=== PATIENT | female | born 1975 | race Caucasian/White ===

== ENCOUNTER 2023-11-25 05:39 | Inpatient (IN) | payer OTHER, SELFPAY ==
--- OUTSIDE RECORDS SUMMARY | 2023-11-25 05:44 | XMS REPORT | Continuity of Care Document ---
Author Name Unknown Address [address] [facility] [address] [place] [address] [facility] thconnect Address [address] [facility] [place]. [address] [place] [address] Care Team Providers Care Radiological Technologist Name Role Phone Layla Armstrong MD Primary Care Physician [phone] CORY SUNSHINE Attending Clinician Unavailable GC_GCBZW_Carena_S Attending Clinician UnavailCASSIE Cifuentes Attending Clinician Unavailable Doctor Unassigned, [place] Attending Clinician U Cassie Morrison PA-C Attending Clinician [phone] Trevon Lopez DO Attending Clinician [phone], [facility] Attending Clinician Unavailable LAYLA ARMSTRONG Attending Clinician UnavailLayla Hernadez MD Attending Clinician [phone] Autumn Moses MD Attending Clinician [phone] Gt Frazier Attending Clinician Unavailab AUTUMN Hilliard Attending Clinician Unavailable KRISTIN STROUD Attending Clinician Unavailable Gramm Kristin BURRIS A Attending Clinician [phone] CORY SUNSHINE Admitting Clinician Unavailable CATERINA_GCBZW_Carena_S Admitting Clinician UnavailCASSIE Cifuentes Admitting Clinician Unavailable Gt Frazier Admitting Clinician Unavailab amita Payers Payer Name Policy Type Policy Number Effective Date Expirati on Date Source MEDICARE PART A \\T\\ B [id number] 2013 00:00:00 [place]ICA[place] [id number] 2019 00:00:00 Problems Condition Name Condition Details Condition Category Status Onset Date Resolution Date Last Treatment Date Treating Clinician Comments Source Morbid obesity with body mass index of 40.0-49.9 Morbid obesity with body mass index of 40.0-49.9 Disease Active 2019-07 00:00: 00 [facility] Obesity (BMI 30-39.9) Obesity (BMI 30-39.9) Disease Active -11 00:00: 00 [facility] Screening for colorectal cancer Screening for colorectal cancer Disease Active 07-25 00:00: 00 Overview: Formattin g of this note might be different from the original. Added automatic ally from request for surgery [id number] [facility] Vaginal yeast infection Vaginal yeast infection Disease Active 08-12 00:00: 00 [facility] Presence of of 52 mg levonorges trel-relea sing intrauteri ne device (IUD) Presence of of 52 mg levonorges trel-relea sing intrauteri ne device (IUD) Disease Active 08-11 00:00: 00 [facility] Intramural leiomyoma of uterus Intramural leiomyoma of uterus Disease Active 08-11 00:00: 00 [facility] Family history of breast cancer Family history of breast cancer Disease Active 08-10 00:00: 00 [facility] Family history of uterine cancer Family history of uterine cancer Disease Active 08-10 00:00: 00 [facility] Family history of colon cancer requiring screening colonoscop y Family history of colon cancer requiring screening colonoscop y Disease Active 08-10 00:00: 00 [facility] Sjogren's disease Sjogren's disease Disease Active 08-10 00:00: 00 [facility] Tobacco use disorder Tobacco use disorder Disease Active 07-30 00:00: 00 [facility] History of depression History of depression Disease Active 07-30 00:00: 00 [facility] S/P tubal ligation S/P tubal ligation Disease Active 07-30 00:00: 00 [facility] Leukorrhea , not specified as infective Leukorrhea , not specified as infective Disease Active 07-13 00:00: 00 [facility] STD (sexually transmitte d disease) STD (sexually transmitte d disease) Disease Active 07-13 00:00: 00 [facility] BV (bacterial vaginosis) BV (bacterial vaginosis) Disease Active 07-13 00:00: 00 [facility] Excessive or frequent menstruati on Excessive or frequent menstruati on Disease Active 07-13 00:00: 00 [facility] Other specified inflammati on of vagina and vulva Other specified inflammati on of vagina and vulva Disease Active 07-13 00:00: 00 [facility] Contact with and (suspected ) exposure to other viral communicab le diseases Contact with and (suspected ) exposure to other viral communicab le diseases Disease Active 07-13 00:00: 00 [facility] Irregular menstrual cycle Irregular menstrual cycle Disease Active 07-13 00:00: 00 [facility] Allergies, Adverse Reactions, Alerts Allergy Name Allergy Type Status Severity Reaction(s) Onset Date Inactive Date Treating Clinician Comments Source [place] - Intraven ous Propensi ty to adverse reaction to drug Active 12-31 00:00: 00 No Known Medicati on Allergie s Drug Active [facility] SEROquel Drug Active [facility] No Known Medicati on Allergie s Drug Active [facility] No Known Medicati on Allergie s Drug Active [facility] SEROquel Drug Active [facility] No Known Medicati on Allergie s Drug Active [facility] SEROquel Drug Active [facility] No Known Medicati on Allergie s Drug Active [facility] SEROquel Drug Active [facility] No Known Medicati on Allergie s Drug Active [facility] No Known Medicati on Allergie s Drug Active [facility] SEROquel Drug Active [facility] No Known Medicati on Allergie s Drug Active [facility] SEROquel Drug Active [facility] No Known Medicati on Allergie s Drug Active [facility] SEROquel Drug Active [facility] No Known Medicati on Allergie s Drug Active [facility] SEROquel Drug Active [facility] No Known Medicati on Allergie s Drug Active [facility] SEROquel Drug Active [facility] No Known Medicati on Allergie s Drug Active [facility] SEROquel Drug Active [facility] NO KNOWN ALLERGIE S Drug Class Active [facility] Social History Social Habit Start Date Stop Date Quantity Comments Source History of tobacco use Cigarette Smoker [facility] Sexual orientation U [facility] Exposure to SARS-CoV-2 (event) 2021-05-17 00:00:00 2021-06-16 10:23:00 Not sure [facility] Alcohol intake 2021-06-16 00:00:00 2021-06-16 00:00:00 Ex-drinker (finding) [facility] Cigarettes smoked current (pack per day) - Reported 2020-06-16 00:00:00 2020-06-16 00:00:00 [facility] Cigarette pack-years 2020-06-16 00:00:00 2020-06-16 00:00:00 [facility] Tobacco use and exposure 2020-06-16 00:00:00 2020-06-16 00:00:00 Smokeless tobacco non-user [facility] History of Social function 2020-02-07 00:00:00 2020-02-07 00:00:00 [facility] Sex Assigned At 1975 00:00:00 1975 00:00:00 [facility] Smoking Status Start Date Stop Date Source Smoker 2020-06-16 00:00:00 [facility] Medications Ordered Medication Name Filled Medication Name Start Date Stop Date Current Medication? Ordering Clinician Indication Dosage Frequency Signature (SIG) Comments Components Source &lt - 00:00: 00 No 600 &lt 2022-0 8-09 00:00: 00 No 15 &lt 2022-0 7-13 00:00: 00 No 20 &lt 2022-0 7-13 00:00: 00 No 20 &lt 2022-0 7-13 00:00: 00 No 600 &lt 2022-0 7-13 00:00: 00 No 20 &lt 2022-0 7-13 00:00: 00 No 20 &lt 2022-0 7-13 00:00: 00 No 600 &lt 2022-0 7-12 00:00: 00 No 600 &lt 2022-0 7-12 00:00: 00 No 20 &lt 2022-0 7-12 00:00: 00 No 500 &lt 2022-0 7-12 00:00: 00 No 15 &lt 2022-0 7-12 00:00: 00 No 600 &lt 2022-0 7-12 00:00: 00 No 20 &lt 2022-0 7-12 00:00: 00 No 500 &lt 2022-0 7-12 00:00: 00 No 15 gabapentin 600 mg tablet 2022-0 6-30 00:00: 00 No 1mg lisinopril 5 mg tablet 2022-0 6-30 00:00: 00 No 1mg &lt 2022-0 6-30 00:00: 00 No gabapentin 600 mg tablet 2022-0 6-30 00:00: 00 No 1mg lisinopril 5 mg tablet 2022-0 6-30 00:00: 00 No 1mg &lt 2022-0 6-30 00:00: 00 No gabapentin 600 mg tablet 2022-0 6-12 00:00: 00 No 1mg gabapentin 600 mg tablet 2022-0 6-12 00:00: 00 No 1mg gabapentin 600 mg tablet 2022-0 6-10 00:00: 00 No 1mg &lt 2022-0 6-10 00:00: 00 No Dose Unknown 2022-0 6-10 00:00: 00 No &lt 2022-0 6-10 00:00: 00 No Dose Unknown 2022-0 6-10 00:00: 00 No gabapentin 600 mg tablet 2022-0 6-10 00:00: 00 No 1mg &lt 2022-0 6-10 00:00: 00 No Dose Unknown 0 6- 00:00: 00 No &lt 0 6 00:00: 00 No Dose Unknown 0 6 00:00: 00 No Dose Unknown 0 6- 00:00: 00 No Dose Unknown 0 6 00:00: 00 No Dose Unknown 0 6 00:00: 00 No Dose Unknown 0 6 00:00: 00 No metroNIDAZO LE 500 mg tablet 2020-07 00:00: 00 Yes [id number] 500mg Take 1 tablet by mouth every 12 (twelve) hours. [facility] FLUoxetine 20 mg capsule 2020-07 00:00: 00 Yes [facility] mirtazapine 15 mg tablet 2020-07 00:00: 00 Yes [facility] gabapentin 600 mg tablet 2020-07 00:00: 00 No 1mg gabapentin 600 mg tablet 2020-07 00:00: 00 No 1mg gabapentin 600 mg tablet 2020-07 00:00: 00 No 1mg gabapentin 600 mg tablet 2020-07 00:00: 00 No 1mg gabapentin 600 mg tablet 04-01 00:00: 00 No 1mg gabapentin 600 mg tablet 04-01 00:00: 00 No 1mg gabapentin 600 mg tablet 01-27 00:00: 00 No 1mg gabapentin 600 mg tablet 01-27 00:00: 00 No 1mg gabapentin 300 mg capsule 12-18 00:00: 00 No 1mg gabapentin 300 mg capsule 12-18 00:00: 00 No 1mg ibuprofen 800 mg tablet 2019-07 10:58: 38 Yes 800mg Take 800 mg by mouth every 6 (six) hours as needed. [facility] amitriptyli ne 75 mg tablet 2019-07 10:57: 54 Yes 75mg Take 75 mg by mouth at bedtime. [facility] OLANZapine 15 mg tablet 2019-07 00:00: 00 Yes [facility] peg-electro lyte soln 236-22.74-6 .74 -5.86 gram solution 07-25 00:00: 00 Yes [id number] 4000mL Take 4,000 mL by mouth SEE-INSTRU CTIONS. Take as directed [facility] buPROPion XL 150 mg 24 hr tablet 2018-07 00:00: 00 Yes [facility] Wellbutrin XL 150 mg 24 hr tablet, extended release 2018-07 00:00: 00 No 1mg trazodone 50 mg tablet 2018-07 00:00: 00 No 1mg Wellbutrin XL 150 mg 24 hr tablet, extended release 2018-07 00:00: 00 No 1mg trazodone 50 mg tablet 2018-07 00:00: 00 No 1mg hydroxyzine HCl 50 mg tablet 2018-07 00:00: 00 No 1mg hydroxyzine HCl 50 mg tablet 2018-07 00:00: 00 No 1mg nitroglycer in 0.4 mg sublingual tablet 03-16 00:00: 00 No 1mg nitroglycer in 0.4 mg sublingual tablet 03-16 00:00: 00 No 1mg hydrOXYzine 50 mg capsule 2015-07 00:00: 00 Yes TAKE 1-2 CAPS DAILY NEEDED FOR ANXIETY [facility] Vital Signs Vital Name Observation Time Observation Value Comments S ource Systolic blood pressure 2021-06-16 16:42:00 132 mm[Hg] [facility] Diastolic blood pressure 2021-06-16 16:42:00 90 mm[Hg] [facility] Heart rate 2021-06-16 16:41:00 112 /min [facility] Body temperature 2021-06-16 16:41:00 36.83 Marlys [facility] Respiratory rate 2021-06-16 16:41:00 18 /min [facility] Body height 2021-06-16 16:41:[address] [facility] Body weight 2021-06-16 16:41:[address] [facility] BMI 2021-06-16 16:41:00 50.70 kg/m2 [facility] Height/Length Measured 2021-07-21 08:53:33 149.9 cm Weight Dosing 2021-07-21 08:53:33 68.00 kg Height/Length Measured 2021-07-21 08:50:45 149.9 cm Weight Dosing 2021-07-21 08:50:45 68.00 kg Height/Length Measured 2021-07-21 08:49:48 149.9 cm Weight Dosing 2021-07-21 08:49:48 68.00 kg Height/Length Measured 2021-07-21 08:48:44 149.9 cm Weight Dosing 2021-07-21 08:48:44 68.00 kg Height/Length Measured 2021-07-21 08:48:07 149.9 cm Weight Dosing 2021-07-21 08:48:07 68.00 kg Height/Length Measured 2021-07-21 08:47:09 149.9 cm Weight Dosing 2021-07-21 08:47:09 68.00 kg Height/Length Measured 2021-07-21 08:47:08 149.9 cm Weight Dosing 2021-07-21 08:47:08 68.00 kg Height/Length Measured 2021-07-21 08:46:32 149.9 cm Weight Dosing 2021-07-21 08:46:32 68.00 kg Height/Length Measured 2021-07-21 08:46:05 149.9 cm Weight Dosing 2021-07-21 08:46:05 68.00 kg Height/Length Measured 2021-07-21 08:46:04 149.9 cm Weight Dosing 2021-07-21 08:46:04 68.00 kg Height/Length Measured 2021-07-21 08:46:00 150 cm Height/Length Measured 2021-07-21 08:45:44 150 cm Height/Length Measured 2019-07-27 17:15:16 Height/Length Measured 2019-07-27 13:25:33 BP Systolic 2022-02-12 15:48:00 150 mm[Hg] BP Diastolic 2022-02-12 15:48:00 90 mm[Hg] Weight Measured 2022-02-12 15:48:00 252.80 pounds Height Measured 2022-02-12 15:48:00 59.70 inches Body Temperature 2022-02-12 15:48:00 98.10 degrees Heart Rate 2022-02-12 15:48:00 106.00 /min Respiratory Rate 2022-02-12 15:48:00 BP Systolic 2022-01-12 14:28:00 BP Diastolic 2022-01-12 14:28:00 Weight Measured 2022-01-12 14:28:00 251.80 pounds Height Measured 2022-01-12 14:28:00 59.70 inches Body Temperature 2022-01-12 14:28:00 Heart Rate 2022-01-12 14:28:00 Respiratory Rate 2022-01-12 14:28:00 BP Systolic 2021-12-31 14:56:00 139 mm[Hg] BP Diastolic 2021-12-31 14:56:00 95 mm[Hg] Weight Measured 2021-12-31 14:56:00 251.80 pounds Height Measured 2021-12-31 14:56:00 59.70 inches Body Temperature 2021-12-31 14:56:00 98.40 degrees Heart Rate 2021-12-31 14:56:00 106.00 /min Respiratory Rate 2021-12-31 14:56:00 17.00 /min BP Systolic 2021-12-11 15:08:00 129 mm[Hg] BP Diastolic 2021-12-11 15:08:00 83 mm[Hg] Weight Measured 2021-12-11 15:08:00 252.00 pounds Height Measured 2021-12-11 15:08:00 59.70 inches Body Temperature 2021-12-11 15:08:00 98.40 degrees Heart Rate 2021-12-11 15:08:00 109.00 /min Respiratory Rate 2021-12-11 15:08:00 18.00 /min BP Systolic 2021-01-21 14:02:00 BP Diastolic 2021-01-21 14:02:00 Weight Measured 2021-01-21 14:02:00 230.00 pounds Height Measured 2021-01-21 14:02:00 59.70 inches Body Temperature 2021-01-21 14:02:00 Heart Rate 2021-01-21 14:02:00 Respiratory Rate 2021-01-21 14:02:00 BP Systolic 2020-01-29 10:07:00 BP Diastolic 2020-01-29 10:07:00 Weight Measured 2020-01-29 10:07:00 Height Measured 2020-01-29 10:07:00 59.70 inches Body Temperature 2020-01-29 10:07:00 Heart Rate 2020-01-29 10:07:00 Respiratory Rate 2020-01-29 10:07:00 BP Systolic 2019-04-24 13:32:00 123 mm[Hg] BP Diastolic 2019-04-24 13:32:00 79 mm[Hg] Weight Measured 2019-04-24 13:32:00 143.60 pounds Height Measured 2019-04-24 13:32:00 59.70 inches Body Temperature 2019-04-24 13:32:00 98.10 degrees Heart Rate 2019-04-24 13:32:00 73.00 /min Respiratory Rate 2019-04-24 13:32:00 16.00 /min Plan of Care Planned Activity Planned Date Details Comments Source Goal Plan of Care Note [code = 55415-4] Goal Plan of Care Note [code = 56437-7] Goal Plan of Care Note [code = 26155-5] Goal Plan of Care Note [code = 15184-7] Goal Plan of Care Note [code = 50073-0] Goal Plan of Care Note [code = 16356-0] Goal Plan of Care Note [code = 56907-2] Goal Plan of Care Note [code = 41839-9] Goal Plan of Care Note [code = 85152-4] Goal Plan of Care Note [code = 98401-7] Goal Plan of Care Note [code = 74993-7] Goal Plan of Care Note [code = 17170-2] Goal Plan of Care Note [code = 03497-6] Goal Plan of Care Note [code = 48971-9] Goal Plan of Care Note [code = 73857-6] Goal Plan of Care Note [code = 51648-7] Goal Plan of Care Note [code = 57456-2] Goal Plan of Care Note [code = 32317-8] Goal Plan of Care Note [code = 35017-9] Goal Plan of Care Note [code = 52252-0] Goal Plan of Care Note [code = 93104-6] Goal Plan of Care Note [code = 38179-9] Goal Plan of Care Note [code = 05991-4] Goal Plan of Care Note [code = 70235-7] Goal Plan of Care Note [code = 52142-0] Goal Plan of Care Note [code = 78059-9] Goal Plan of Care Note [code = 09134-7] Goal Plan of Care Note [code = 28582-7] Goal Plan of Care Note [code = 54135-3] Goal Plan of Care Note [code = 97715-6] Goal Plan of Care Note [code = 87999-3] Goal Plan of Care Note [code = 20748-0] Goal Plan of Care Note [code = 24198-0] Goal Plan of Care Note [code = 54729-7] Goal Plan of Care Note [code = 48743-9] Goal Plan of Care Note [code = 08702-7] Goal Plan of Care Note [code = 33620-5] Goal Plan of Care Note [code = 43892-7] Goal Plan of Care Note [code = 08951-7] Goal Plan of Care Note [code = 75683-8] Goal Plan of Care Note [code = 25971-8] Goal Plan of Care Note [code = 87336-7] Goal Plan of Care Note [code = 81169-0] Goal Plan of Care Note [code = 05377-7] Encounters Start Date/Time End Date/Time Encounter Type Admission Type Attending [facility] Facility Care Department Encounter ID Source 2021-04-30 13:01:21 Outpatient CORY RODRIGUEZ [facility] [id number] [facility] 2023-11-18 15:12:05 2023-11-18 15:12:05 Outpatient SFA SFA [id number] Hipolito Jannet Addy 2023-10-27 15:16:19 2023-10-27 15:16:19 Outpatient SFA SFA [id number] Hipolito Jannet Addy 2023-09-27 14:31:59 2023-09-27 14:31:59 Outpatient SFA SFA [id number] Hipolito Daly 2023-08-30 14:04:03 2023-08-30 14:04:03 Outpatient SFA SFA [id number] Hipolito Daly 2023-08-09 15:22:39 2023-08-09 15:22:39 Outpatient SFA SFA 020 Hipolito Daly 2023-08-05 14:01:58 2023-08-05 14:01:58 Outpatient SFA SFA [id number] Hipolito Daly 2023-07-22 09:20:47 2023-07-22 09:20:47 Outpatient SFA SFA [id number] Hipolito Daly 2023-07-21 15:44:24 2023-07-21 15:44:24 Outpatient SFA SFA [id number] Hipolito Daly 2023-05-13 14:18:07 2023-05-13 14:18:07 Outpatient SFA SFA [id number] Hipolito Daly 2023-04-30 00:00:00 2023-04-30 00:00:00 Outpatient GC_GCBZW_Ka diyala_S PRIV PRIV [id number] [facility] 2023-04-29 00:00:00 2023-04-29 00:00:00 Outpatient GC_GCBZW_Ka diyala_S PRIV PRIV [id number] [facility] 2023-04-22 09:27:33 2023-04-22 09:27:33 Outpatient SFA SFA [id number] Hipolito Daly 2023-01-07 14:24:57 2023-01-07 14:24:57 Outpatient SFA SFA [id number] Hipolito Power Addy 2022-12-10 14:22:50 2022-12-10 14:22:50 Outpatient SFA SFA [id number] Hipolito Daly 2022-09-09 17:27:41 2022-09-09 17:27:41 Outpatient SFA SFA [id number] Hipolito Daly 2022-06-11 14:39:02 2022-06-11 14:39:02 Outpatient SFA SFA [id number] Hipolito Daly 2022-04-19 14:24:11 2022-04-19 14:24:11 Outpatient SFA SFA [id number] Hipolito Daly 2022-02-12 00:00:00 2022-02-12 00:00:00 Outpatient Visit [id number] 2022-01-13 00:00:00 2022-01-13 00:00:00 Outpatient Visit [id number] 2022-01-12 00:00:00 2022-01-12 00:00:00 Outpatient Visit [id number] 2021-12-31 00:00:00 2021-12-31 00:00:00 Outpatient Visit [id number] 2021-06-23 00:00:00 2021-06-23 00:00:00 Patient Secure Msg Doctor Unassigned, [place] [address]840.114 350.1.13.10 4.2.7.2.686 [id number] [facility] 2021-06-18 00:00:00 2021-06-18 00:00:00 Patient Secure Msg Doctor Unassigned, [place] [address].840.114 350.1.13.10 4.2.7.2.686 [id number] [facility] 2021-06-17 00:00:00 2021-06-17 00:00:00 Case Management Cassie Mcgraw [address]114 350.1.13.10 4.2.7.2.686 [id number] [facility] 2021-06-16 10:30:00 2021-06-16 10:59:21 Outpatient R CASSIE MCGRAW [facility] [id number] [facility] 2021-06-16 10:24:50 2021-06-16 10:59:21 Office Visit Mariluz [facility] 1.840.114 350.1.13.10 4.2.7.2.686 [id number] [facility] 2021-06-16 10:30:00 2021-06-16 10:30:00 Outpatient R MARILUZ [facility] [id number] [facility] 2021-06-16 00:00:00 2021-06-16 00:00:00 Orders Only Doctor Unassigned, [place] [facility] 1.840.114 350.1.13.10 4.2.7.2.686 [id number] [facility] 2020-09-18 00:00:00 2020-09-18 00:00:00 Patient Outreach Trevon Lopez [facility] 1.840.114 350.1.13.10 4.2.7.2.686 [id number] [facility] 2020-08-05 14:15:00 2020-08-05 14:15:00 Outpatient R CORY SUNSHINE [facility] [id number] [facility] 2020-06-16 11:30:37 2020-06-16 11:45:37 Manager Environmental Health And Safety Visit 2, Adc Lab Mariluz [facility] 1.840.114 350.1.13.10 4.2.7.2.686 [id number] [facility] 2020-06-16 10:27:51 2020-06-16 10:57:51 Office Visit Cassie Mcgraw [facility] [place] [facility] 1.2.840.114 350.1.13.10 4.2.7.2.686 [id number] [facility] 2020-06-16 10:30:00 2020-06-16 10:30:00 Outpatient R CASSIE MCGRAW [facility] [id number] [facility] 2019-11-16 00:00:00 2019-11-16 00:00:00 Telephone Cassie Mcgraw [facility] Alivia [facility] 1.2.840.114 350.1.13.10 4.2.7.2.686 [id number] [facility] 2019-11-15 00:00:00 2019-11-15 00:00:00 Case Management Cassie Mcgraw [facility] Building 1.2.840.114 350.1.13.10 4.2.7.2.686 [id number] [facility] 2019-11-12 10:18:52 2019-11-12 11:20:52 Office Visit Cassie Mcgraw [facility] 1.2.840.114 350.1.13.10 4.2.7.2.686 [id number] [facility] 2019-11-12 10:30:00 2019-11-12 10:30:00 Out[facility] [id number] [facility] 2019-11-07 14:15:00 2019-11-07 14:15:00 [facility] [id number] [facility] 2019-11-06 14:00:00 2019-11-06 14:00:00 Outpatient LAYLA HUNTER [facility] [id number] [facility] 2019-11-06 07:37:59 2019-11-06 08:07:59 Telemedici ne Visit Layla Armstrong [facility] 1.2.840.114 350.1.13.10 4.2.7.2.686 [id number] [facility] 2019-11-05 08:48:17 2019-11-05 09:03:17 Manager Environmental Health And Safety Visit 2, Adc Lab Cassie Mcgraw [facility] 1.2.840.114 350.1.13.10 4.2.7.2.686 [id number] [facility] 2019-11-05 08:45:00 2019-11-05 08:45:00 Outpatient R MARILUZCASSIE [facility] [id number] [facility] 2019-11-05 00:00:00 2019-11-05 00:00:00 Orders Only Doctor Unassigned, [place] [facility] 1.2.840.114 350.1.13.10 4.2.7.2.686 [id number] [facility] 2019-11-02 00:00:00 2019-11-02 00:00:00 Telephone Cassie Mcgraw [facility] 1.2840.114 350.1.13.10 4.2.7.2.686 [id number] [facility] 2019-08-07 10:49:20 2019-08-07 23:59:00 Outpatient R CASSIE MCGRAW [facility] [id number] [facility] 2019-08-07 10:49:00 2019-08-07 23:59:00 Hospital Encounter Cassie Mcgraw [facility] 1.2.840.114 350.1.13.10 4.2.7.2.686 [id number] [facility] 2019-07-27 13:19:56 2019-07-27 23:59:00 Hospital Encounter Autumn Moses [facility] 1..114 350.1.13.10 4.2.7.2.686 [id number] [facility] 2019-07-27 13:14:00 2019-07-27 13:14:[address] [facility] [id number] [facility] 2019-07-27 13:14:00 2019-07-27 13:14:00 Emergency [address] [facility] [id number] [facility] 2019-07-27 00:00:00 2019-07-27 00:00:00 Outpatient R AUTUMN MOSES [facility] SHERITA [id number] [facility] 2019-07-27 00:00:00 2019-07-27 00:00:00 Orders Only Doctor Unassigned, [place] [facility] [id number] [facility] 2019-07-26 14:00:00 2019-07-26 14:00:00 Outpatient R CORY SUNSHINE [facility] [id number] [facility] 2019-07-25 11:00:00 2019-07-25 13:06:10 Outpatient R KRISTIN STROUD [facility] [id number] [facility] 2019-07-25 11:06:48 2019-07-25 11:21:48 Office Visit Kristin Stroud [facility] [id number] [id number] [id number] [facility] 2019-07-25 00:00:00 2019-07-25 00:00:00 Telephone Kristin Stroud [facility] 1.840.114 [id number] 4.2.7.2.686 [id number] [facility] 2019-07-25 00:00:00 2019-07-25 00:00:00 Prep For Surgery Kristin Stroud [facility] Gentry Aguila [facility] [id number] 350.1.13.10 4.2.7.2.686 [id number] [facility] 2019-06-22 11:05:54 2019-06-22 11:05:00 Outpatient Jailene MCGRAW [facility] [id number] [facility] 2019-06-14 11:30:00 2019-06-14 11:30:00 [facility] [id number] [facility] 2019-03-08 12:54:36 2019-03-08 23:59:00 Hospital Encounter Autumn Moses [facility] 1..840.114 350.1.13.10 4.2.7.2.686 [id number] [facility] Results Test Description Test Time Test Comments Results Result Co mments Source LIPID [id number] 05:13:29* Test Item Value Reference Range Interpretation Comme nts CHOLESTEROL (test code = 2210) 146 MG/DL <200 TRIGLYCERIDES (test code = 2232) 146 MG/DL <150 HDL CHOLESTEROL (test code = 2220) 47 MG/DL >39 CALC LDL CHOL (test code = 2237) 76 MG/DL <100 UNABLE TO CALCUL ATE NOTE: CALCULATED LDL IS BASED ON IDRIS-LAO METHOD WHICHINCLUDES ADJUSTABLE TRIGLYCERIDE:VLDL CHOLESTEROL RATIO.THIS FACTOR VARIES BY MEASURED TRIGLYCERIDE AND NON-HDLCHOLESTEROL CONCENTRATIONS WITH INCREASED CALCULATED LDL SEENIN HIGHER TRIGLYCERIDE OR LOWER NON-HDL SPECIMENS. FOR MOREINFORMATION, SEE CLIENT ANNOUNCEMENT AT [email or web address] RATIO LDL/HDL (test code = 2238) 1.62 RATIO <3.22 UNABLE TO ARASH CULATE HEMOGLOBIN [id number] 02:41:49* Test Item Value Reference Range Interpretation Comme nts HEMOGLOBIN A1c (test code = 15165) 6.1 % 4.2-5.6 H [employer] GUIDELINES FOR HGB A1C: PREDIABETES/INCREASED RISK . . . . . . . 5.7-6.4% DIAGNOSIS OF DIABETES . . . . . . . . . >=6.5% WITH CONFIRMATION OR APPROPRIATE SYMPTOMS NOTE: ASSAY MAY BE AFFECTED BY HEMOGLOBINOPATHIES (SICKLE CELL ANEMIA, S-C DISEASE, OTHERS) OR ARTIFICIALLY LOWERED BY DECREASED RED CELL SURVIVAL (HEMOLYTIC ANEMIAS, BLOOD LOSS, ETC.). CONSIDER ALTERNATE TESTING OR LABORATORY CONSULTATION. UNLESS OTHERWISE INDICATED, ALL TESTING PERFORMED AT [facility] [address] [place] [address] SPLITTING MACHINE OPERATOR: SILVESTRE NOLASCO M.D. CLIA NUMBER [id number] [place]. [id number] VITAMIN D, 25 [id number] 07:19:40* Test Item Value Reference Range Interpretation Comme nts VITAMIN D, 25 OH (test code = 4958) 7 NG/ML SEE BELOW L EFFECTIVE 2022, PLEASE NOTE NEW METHODOLOGY IS ELECTROCHEMILUMINESCENCE BINDING ASSAY. NOTE: 25-HYDROXYVITAMIN D ASSAY INCLUDES 25-HYDROXYVITAMIN D2 AND D3. INTERPRETIVE RANGES PEDIATRIC (<17 YEARS) . . . . . . . . . . . NG/ML 20-100ADULT: INSUFFICIENT . . . . . . . . . . . . . . NG/ML <20 SUBOPTIMAL . . . . . . . . . . . . . . . NG/ML 20-29 OPTIMAL . . . . . . . . . . . . . . . . . NG/ML 30-100 UNLESS OTHERWISE INDICATED, ALL TESTING PERFORMED AT [facility] [address] [place] [address] SPLITTING MACHINE OPERATOR: SILVESTRE NOLASCO M.D. CLIA NUMBER [id number] [place]. [id number] LIPID [id number] 06:12:20* Test Item Value Reference Range Interpretation Comme nts CHOLESTEROL (test code = 2210) 222 MG/DL <200 H TRIGLYCERIDES (test code = 2232) 201 MG/DL <150 H HDL CHOLESTEROL (test code = 2220) 50 MG/DL >39 CALC LDL CHOL (test code = 2237) 137 MG/DL <100 H NOTE: CALCULATED LDL IS BASED ON IDRIS-LAO METHOD WHICHINCLUDES ADJUSTABLE TRIGLYCERIDE:VLDL CHOLESTEROL RATIO.THIS FACTOR VARIES BY MEASURED TRIGLYCERIDE AND NON-HDLCHOLESTEROL CONCENTRATIONS WITH INCREASED CALCULATED LDL SEENIN HIGHER TRIGLYCERIDE OR LOWER NON-HDL SPECIMENS. FOR MOREINFORMATION, SEE CLIENT ANNOUNCEMENT AT [email or web address] RATIO LDL/HDL (test code = 2237) 2.74 RATIO <3.22 COMPREHENSIVE METABOLIC [id number] 06:12:20* Test Item Value Reference Range Interpretation Comme nts GLUCOSE (test code = 2216) 118 MG/DL 70-99 H BUN (test code = 2207) 8 MG/DL 6-20 CREATININE (test code = 2213) 0.76 MG/DL 0.60-1.30 eGFR (2020 CKD-EPI) (test code = 66635) 96 ML/MIN/1.73 >60 CALC BUN/CREAT (test code = 2234) 11 RATIO 6-28 SODIUM (test code = 2230) 138 MEQ/L 133-146 POTASSIUM (test code = 2227) 4.5 MEQ/L 3.5-5.4 CHLORIDE (test code = 2214) 102 MEQ/L 95-107 CARBON DIOXIDE (test code = 6) 23 MEQ/L 19-31 CALCIUM (test code = 220) 9.9 MG/DL 8.5-10.5 PROTEIN, TOTAL (test code = 2228) 7.1 G/DL 6.1-8.3 ALBUMIN (test code = 2200) 5.0 G/DL 3.5-5.2 CALC GLOBULIN (test code = 2240) 2.1 G/DL 1.9-3.7 CALC A/G RATIO (test code = 2233) 2.4 RATIO 1.0-2.6 BILIRUBIN, TOTAL (test code = 2206) 0.3 MG/DL <=1.2 ALKALINE PHOSPHATASE (test code = 220) 110 U/L 40-125 AST (test code = 2218) 19 U/L 9-40 ALT (test code = 2219) 24 U/L 5-40 UNLESS OTHERWISE INDICATED, ALL TESTING PERFORMED AT [facility] [address] [place] [address] SPLITTING MACHINE OPERATOR: SILVESTRE NOLASCO M.D. CLIA NUMBER [id number] [place]. [id number] CBC W/AUTO DIFF WITH [id number] 04:51:12* Test Item Value Reference Range Interpretation Comme nts WBC (test code = 1001) 8.2 K/UL 3.5-11.0 RBC (test code = 1002) 4.47 M/UL 3.80-5.40 HEMOGLOBIN (test code = 1003) 14.6 G/DL 11.5-15.5 HEMATOCRIT (test code = 1004) 43.4 % 34.0-45.0 MCV (test code = 1005) 97.1 fL 80.0-99.0 MCH (test code = 1006) 32.7 PG 25.0-33.0 MCHC (test code = 1007) 33.6 G/DL 31.0-36.0 RDW (test code = 1038) 12.9 % 11.5-15.0 NEUTROPHILS (test code = 1008) 70.2 % LYMPHOCYTES (test code = 1010) 22.1 % MONOCYTES (test code = 1011) 5.6 % EOSINOPHILS (test code = 1012) 1.2 % BASOPHILS (test code = 1013) 0.7 % IMMATURE GRANULOCYTES (test code = 1036) 0.2 % NUCLEATED RBCS (test code = 1065) 0.0 /100 WBC'S See_Comment [Automated messa ge] The system which generated this result transmitted reference range: 0.0. The reference range was not used to interpret this result as normal/abnormal. PLATELET COUNT (test code = 1015) 424 K/UL 130-400 H ABSOLUTE NEUTROPHILS (test code = 1066) 5.75 K/UL 1.50-7.50 ABSOLUTE LYMPHOCYTES (test code = 1067) 1.81 K/UL 1.00-4.00 ABSOLUTE MONOCYTES (test code = 1068) 0.46 K/UL 0.20-1.00 ABSOLUTE EOSINOPHILS (test code = 1040) 0.10 K/UL 0.00-0.50 ABSOLUTE BASOPHILS (test code = 1069) 0.06 K/UL 0.00-0.20 ABS IMMATURE GRANULOCYTES (test code = 1020) 0.02 K/UL 0.00-0.10 ABS NUCLEATED RBCS (test code = 48646) 0.00 K/UL 0.00-0.11 HEMOGLOBIN [id number] 02:42:29* Test Item Value Reference Range Interpretation Comme nts HEMOGLOBIN A1c (test code = 88174) 6.2 % 4.2-5.6 H [employer] GUIDELINES FOR HGB A1C: PREDIABETES/INCREASED RISK . . . . . . . 5.7-6.4% DIAGNOSIS OF DIABETES . . . . . . . . . >=6.5% WITH CONFIRMATION OR APPROPRIATE SYMPTOMS NOTE: ASSAY MAY BE AFFECTED BY HEMOGLOBINOPATHIES (SICKLE CELL ANEMIA, S-C DISEASE, OTHERS) OR ARTIFICIALLY LOWERED BY DECREASED RED CELL SURVIVAL (HEMOLYTIC ANEMIAS, BLOOD LOSS, ETC.). CONSIDER ALTERNATE TESTING OR LABORATORY CONSULTATION. HEMOGLOBIN [id number] 04:19:24* Test Item Value Reference Range Interpretation Comme nts HEMOGLOBIN A1c (test code = 26410) 7.0 % 4.2-5.6 H [employer] GUIDELINES FOR HGB A1C: PREDIABETES/INCREASED RISK . . . . . . . 5.7-6.4% DIAGNOSIS OF DIABETES . . . . . . . . . >=6.5% WITH CONFIRMATION OR APPROPRIATE SYMPTOMS NOTE: ASSAY MAY BE AFFECTED BY HEMOGLOBINOPATHIES (SICKLE CELL ANEMIA, S-C DISEASE, OTHERS) OR ARTIFICIALLY LOWERED BY DECREASED RED CELL SURVIVAL (HEMOLYTIC ANEMIAS, BLOOD LOSS, ETC.). CONSIDER ALTERNATE TESTING OR LABORATORY CONSULTATION. UNLESS OTHERWISE INDICATED, ALL TESTING PERFORMED AT [facility] [address] [place] [address] SPLITTING MACHINE OPERATOR: SILVESTRE NOLASCO M.D. CLIA NUMBER [id number] [facility] [place]. [id number] CBC W/AUTO DIFF WITH [id number] 07:46:27* Test Item Value Reference Range Interpretation Comme nts WBC (test code = 1001) 6.8 K/UL 3.5-11.0 RBC (test code = 1002) 4.49 M/UL 3.80-5.40 HEMOGLOBIN (test code = 1003) 14.8 G/DL 11.5-15.5 HEMATOCRIT (test code = 1004) 44.0 % 34.0-45.0 MCV (test code = 1005) 98.0 fL 80.0-99.0 MCH (test code = 1006) 33.0 PG 25.0-33.0 MCHC (test code = 1007) 33.6 G/DL 31.0-36.0 RDW (test code = 1038) 12.4 % 11.5-15.0 NEUTROPHILS (test code = 1008) 66.5 % LYMPHOCYTES (test code = 1010) 24.4 % MONOCYTES (test code = 1011) 6.6 % EOSINOPHILS (test code = 1012) 1.5 % BASOPHILS (test code = 1013) 0.6 % IMMATURE GRANULOCYTES (test code = 1036) 0.4 % NUCLEATED RBCS (test code = 1065) 0.0 /100 WBC'S See_Comment [Automated [facility]] The system which generated this result transmitted reference range: 0.0. The reference range was not used to interpret this result as normal/abnormal. PLATELET COUNT (test code = 1015) 322 K/UL 130-400 ABSOLUTE NEUTROPHILS (test code = 1066) 4.55 K/UL 1.50-7.50 ABSOLUTE LYMPHOCYTES (test code = 1067) 1.67 K/UL 1.00-4.00 ABSOLUTE MONOCYTES (test code = 1068) 0.45 K/UL 0.20-1.00 ABSOLUTE EOSINOPHILS (test code = 1040) 0.10 K/UL 0.00-0.50 ABSOLUTE BASOPHILS (test code = 1069) 0.04 K/UL 0.00-0.20 ABS IMMATURE GRANULOCYTES (test code = 1020) 0.03 K/UL 0.00-0.10 ABS NUCLEATED RBCS (test code = 33834) 0.00 K/UL 0.00-0.11 LIPID [id number] 07:09:49* Test Item Value Reference Range Interpretation Comme nts CHOLESTEROL (test code = 2210) 241 MG/DL <200 H TRIGLYCERIDES (test code = 2232) 193 MG/DL <150 H HDL CHOLESTEROL (test code = 2220) 53 MG/DL >39 CALC LDL CHOL (test code = 2237) 155 MG/DL <100 H NOTE: CALCULATED LDL IS BASED ON IDRIS-LAO METHOD WHICHINCLUDES ADJUSTABLE TRIGLYCERIDE:VLDL CHOLESTEROL RATIO.THIS FACTOR VARIES BY MEASURED TRIGLYCERIDE AND NON-HDLCHOLESTEROL CONCENTRATIONS WITH INCREASED CALCULATED LDL SEENIN HIGHER TRIGLYCERIDE OR LOWER NON-HDL SPECIMENS. FOR MOREINFORMATION, SEE CLIENT ANNOUNCEMENT AT [email or web address] [email or web address] LDL/HDL (test code = 2238) 2.92 RATIO <3.22 COMPREHENSIVE METABOLIC [id number] 07:09:49* Test Item Value Reference Range Interpretation Comme nts GLUCOSE (test code = 2216) 108 MG/DL 70-99 H BUN (test code = 220) 10 MG/DL 6-20 CREATININE (test code = 2214) 0.73 MG/DL 0.60-1.30 eGFR (2020 CKD-EPI) (test code = 72359) 101 ML/MIN/1.73 >60 CALC BUN/CREAT (test code = 2235) 14 RATIO 6-28 SODIUM (test code = 223) 139 MEQ/L 133-146 POTASSIUM (test code = 2228) 4.6 MEQ/L 3.5-5.4 CHLORIDE (test code = 221) 99 MEQ/L 95-107 CARBON DIOXIDE (test code = 220) 23 MEQ/L 19-31 CALCIUM (test code = 220) 9.8 MG/DL 8.5-10.5 PROTEIN, TOTAL (test code = 222) 8.0 G/DL 6.1-8.3 ALBUMIN (test code = 2200) 5.1 G/DL 3.5-5.2 CALC GLOBULIN (test code = 2240) 2.9 G/DL 1.9-3.7 CALC A/G RATIO (test code = 223) 1.8 RATIO 1.0-2.6 BILIRUBIN, TOTAL (test code = 2206) 0.3 MG/DL See_Comment [Automated me ssage] The system which generated this result transmitted reference range: <=1.2. The reference range was not used to interpret this result as normal/abnormal. ALKALINE PHOSPHATASE (test code = 2203) 133 U/L 40-125 H AST (test code = 2218) 27 U/L 9-40 ALT (test code = 2219) 45 U/L 5-40 H UNLESS OTHERWISE INDICATED, ALL TESTING PERFORMED AT [facility] [address] [place] [address] SPLITTING MACHINE OPERATOR: SILVESTRE NOLASCO M.D. CLIA NUMBER [id number] [facility] [place]. [id number] COMPREHENSIVE METABOLIC [id number] 03:38:27* Test Item Value Reference Range Interpretation Comme nts GLUCOSE (test code = 7) 99 MG/DL 70-99 BUN (test code = 2208) 11 MG/DL 6-20 CREATININE (test code = 2214) 0.68 MG/DL 0.60-1.30 eGFR (2020 CKD-EPI) (test code = 67892) 107 ML/MIN/1.73 >60 CALC BUN/CREAT (test code = 223) 16 RATIO 6-28 SODIUM (test code = 223) 141 MEQ/L 133-146 POTASSIUM (test code = 2228) 4.2 MEQ/L 3.5-5.4 CHLORIDE (test code = 221) 103 MEQ/L 95-107 CARBON DIOXIDE (test code = 2206) 21 MEQ/L 19-31 CALCIUM (test code = 2209) 9.7 MG/DL 8.5-10.5 PROTEIN, TOTAL (test code = 2228) 7.5 G/DL 6.1-8.3 ALBUMIN (test code = 2200) 4.7 G/DL 3.5-5.2 CALC GLOBULIN (test code = 2240) 2.8 G/DL 1.9-3.7 CALC A/G RATIO (test code = 2233) 1.7 RATIO 1.0-2.6 BILIRUBIN, TOTAL (test code = 2206) <0.2 MG/DL See_Comment [Automated me ssage] The system which generated this result transmitted reference range: <=1.2. The reference range was not used to interpret this result as normal/abnormal. ALKALINE PHOSPHATASE (test code = 2203) 127 U/L 40-123 H AST (test code = 2218) 25 U/L 9-40 ALT (test code = 2219) 33 U/L 5-40 UNLESS OTHERWISE INDICATED, ALL TESTING [facility]FORMED [facility] [address] [place] [address] SPLITTING MACHINE OPERATOR: CJ AYALA M.D. CLIA NUMBER [id number] [facility] [place]. [id number] COMPREHENSIVE METABOLIC [id number] 00:00:00* Test Item Value Reference Range Interpretation Comme nts GLUCOSE (test code = 7) 99 MG/DL BUN (test code = 2208) 11 MG/DL CREATININE (test code = 2214) 0.68 MG/DL eGFR (2020 CKD-EPI) (test code = 47981) 107 ML/MIN/1.73 CALC BUN/CREAT (test code = 2235) 16 RATIO SODIUM (test code = 2231) 141 MEQ/L POTASSIUM (test code = 2228) 4.2 MEQ/L CHLORIDE (test code = 2215) 103 MEQ/L CARBON DIOXIDE (test code = 2206) 21 MEQ/L CALCIUM (test code = 2209) 9.7 MG/DL PROTEIN, TOTAL (test code = 2229) 7.5 G/DL ALBUMIN (test code = 2201) 4.7 G/DL CALC GLOBULIN (test code = 2240) 2.8 G/DL CALC A/G RATIO (test code = 2234) 1.7 RATIO BILIRUBIN, TOTAL (test code = 2207) <0.2 MG/DL ALKALINE PHOSPHATASE (test code = 2204) 127 U/L AST (test code = 2218) 25 U/L ALT (test code = 2219) 33 U/L COMPREHENSIVE METABOLIC [id number] 00:00:00* Test Item Value Reference Range Interpretation Comme nts GLUCOSE (test code = 2217) 99 MG/DL BUN (test code = 2208) 11 MG/DL CREATININE (test code = 2214) 0.68 MG/DL eGFR (2020 CKD-EPI) (test code = 15368) 107 ML/MIN/1.73 CALC BUN/CREAT (test code = 2235) 16 RATIO SODIUM (test code = 2231) 141 MEQ/L POTASSIUM (test code = 2228) 4.2 MEQ/L CHLORIDE (test code = 2215) 103 MEQ/L CARBON DIOXIDE (test code = 2206) 21 MEQ/L CALCIUM (test code = 2209) 9.7 MG/DL PROTEIN, TOTAL (test code = 2229) 7.5 G/DL ALBUMIN (test code = 2201) 4.7 G/DL CALC GLOBULIN (test code = 2240) 2.8 G/DL CALC A/G RATIO (test code = 2234) 1.7 RATIO BILIRUBIN, TOTAL (test code = 2207) <0.2 MG/DL ALKALINE PHOSPHATASE (test code = 2204) 127 U/L AST (test code = 2218) 25 U/L ALT (test code = 2219) 33 U/L COMPREHENSIVE METABOLIC [id number] 00:00:00* Test Item Value Reference Range Interpretation Comme nts GLUCOSE (test code = 2217) 99 MG/DL BUN (test code = 2208) 11 MG/DL CREATININE (test code = 2214) 0.68 MG/DL eGFR (2020 CKD-EPI) (test code = 99004) 107 ML/MIN/1.73 CALC BUN/CREAT (test code = 2235) 16 RATIO SODIUM (test code = 2231) 141 MEQ/L POTASSIUM (test code = 2228) 4.2 MEQ/L CHLORIDE (test code = 2215) 103 MEQ/L CARBON DIOXIDE (test code = 2206) 21 MEQ/L CALCIUM (test code = 2209) 9.7 MG/DL PROTEIN, TOTAL (test code = 2229) 7.5 G/DL ALBUMIN (test code = 2201) 4.7 G/DL CALC GLOBULIN (test code = 2240) 2.8 G/DL CALC A/G RATIO (test code = 2234) 1.7 RATIO BILIRUBIN, TOTAL (test code = 2207) <0.2 MG/DL ALKALINE PHOSPHATASE (test code = 2204) 127 U/L AST (test code = 2218) 25 U/L ALT (test code = 2219) 33 U/L COMPREHENSIVE METABOLIC [id number] 00:00:00* Test Item Value Reference Range Interpretation Comme nts GLUCOSE (test code = 2217) 99 MG/DL BUN (test code = 2208) 11 MG/DL CREATININE (test code = 2214) 0.68 MG/DL eGFR (2020 CKD-EPI) (test code = 16493) 107 ML/MIN/1.73 CALC BUN/CREAT (test code = 2235) 16 RATIO SODIUM (test code = 2231) 141 MEQ/L POTASSIUM (test code = 2228) 4.2 MEQ/L CHLORIDE (test code = 2215) 103 MEQ/L CARBON DIOXIDE (test code = 2206) 21 MEQ/L CALCIUM (test code = 2209) 9.7 MG/DL PROTEIN, TOTAL (test code = 2229) 7.5 G/DL ALBUMIN (test code = 2201) 4.7 G/DL CALC GLOBULIN (test code = 2240) 2.8 G/DL CALC A/G RATIO (test code = 2234) 1.7 RATIO BILIRUBIN, TOTAL (test code = 2207) <0.2 MG/DL ALKALINE PHOSPHATASE (test code = 2204) 127 U/L AST (test code = 2218) 25 U/L ALT (test code = 2219) 33 U/L COMPREHENSIVE METABOLIC [id number] 00:00:00* Test Item Value Reference Range Interpretation Comme nts GLUCOSE (test code = 2217) 99 MG/DL BUN (test code = 2208) 11 MG/DL CREATININE (test code = 2214) 0.68 MG/DL eGFR (2020 CKD-EPI) (test code = 80889) 107 ML/MIN/1.73 CALC BUN/CREAT (test code = 2235) 16 RATIO SODIUM (test code = 2231) 141 MEQ/L POTASSIUM (test code = 2228) 4.2 MEQ/L CHLORIDE (test code = 2215) 103 MEQ/L CARBON DIOXIDE (test code = 2206) 21 MEQ/L CALCIUM (test code = 2209) 9.7 MG/DL PROTEIN, TOTAL (test code = 222) 7.5 G/DL ALBUMIN (test code = 2201) 4.7 G/DL CALC GLOBULIN (test code = 2240) 2.8 G/DL CALC A/G RATIO (test code = 2234) 1.7 RATIO BILIRUBIN, TOTAL (test code = 2207) <0.2 MG/DL ALKALINE PHOSPHATASE (test code = 2204) 127 U/L AST (test code = 2218) 25 U/L ALT (test code = 2219) 33 U/L CBC W/AUTO DIFF WITH [id number] 03:36:39* Test Item Value Reference Range Interpretation Comme nts WBC (test code = 1001) 6.7 K/UL 3.5-11.0 RBC (test code = 1002) 4.27 M/UL 3.80-5.40 HEMOGLOBIN (test code = 1003) 14.9 G/DL 11.5-15.5 HEMATOCRIT (test code = 1004) 40.5 % 34.0-45.0 MCV (test code = 1005) 94.8 fL 80.0-99.0 MCH (test code = 1006) 34.9 PG 25.0-33.0 H MCHC (test code = 1007) 36.8 G/DL 31.0-36.0 H RDW (test code = 1038) 12.9 % 11.5-15.0 NEUTROPHILS (test code = 1008) 65.2 % LYMPHOCYTES (test code = 1010) 25.9 % MONOCYTES (test code = 1011) 6.2 % EOSINOPHILS (test code = 1012) 1.7 % BASOPHILS (test code = 1013) 0.5 % IMMATURE GRANULOCYTES (test code = 1036) 0.5 % NUCLEATED RBCS (test code = 1065) 0.0 /100 WBC'S See_Comment [Automated messa ge] The system which generated this result transmitted reference range: 0.0. The reference range was not used to interpret this result as normal/abnormal. PLATELET COUNT (test code = 1015) 324 K/UL 130-400 ABSOLUTE NEUTROPHILS (test code = 1066) 4.35 K/UL 1.50-7.50 ABSOLUTE LYMPHOCYTES (test code = 1067) 1.72 K/UL 1.00-4.00 ABSOLUTE MONOCYTES (test code = 1068) 0.41 K/UL 0.20-1.00 ABSOLUTE EOSINOPHILS (test code = 1040) 0.11 K/UL 0.00-0.50 ABSOLUTE BASOPHILS (test code = 1069) 0.03 K/UL 0.00-0.20 ABS IMMATURE GRANULOCYTES (test code = 1020) 0.03 K/UL 0.00-0.10 ABS NUCLEATED RBCS (test code = 31440) 0.00 K/UL 0.00-0.11 CBC W/AUTO [id number] 00:00:00* Test Item Value Reference Range Interpretation Comme nts WBC (test code = 1001) 6.7 K/UL RBC (test code = 1002) 4.27 M/UL HEMOGLOBIN (test code = 1003) 14.9 G/DL HEMATOCRIT (test code = 1004) 40.5 % MCV (test code = 1005) 94.8 fL MCH (test code = 1006) 34.9 PG MCHC (test code = 1007) 36.8 G/DL RDW (test code = 1038) 12.9 % NEUTROPHILS (test code = 1008) 65.2 % LYMPHOCYTES (test code = 1010) 25.9 % MONOCYTES (test code = 1011) 6.2 % EOSINOPHILS (test code = 1012) 1.7 % BASOPHILS (test code = 1013) 0.5 % IMMATURE GRANULOCYTES (test code = 1036) 0.5 % NUCLEATED RBCS (test code = 1065) 0.0 /100WBC'S PLATELET COUNT (test code = 1015) 324 K/UL ABSOLUTE NEUTROPHILS (test c ode = 1066) 4.35 K/UL ABSOLUTE LYMPHOCYTES (test c ode = 1067) 1.72 K/UL ABSOLUTE MONOCYTES (test cod e = 1068) 0.41 K/UL ABSOLUTE EOSINOPHILS (test c ode = 1040) 0.11 K/UL ABSOLUTE BASOPHILS (test cod e = 1069) 0.03 K/UL ABS IMMATURE GRANULOCYTES (t est code = 1020) 0.03 K/UL ABS NUCLEATED RBCS (test cod e = 05315) 0.00 K/UL CBC W/AUTO [id number] 00:00:00* Test Item Value Reference Range Interpretation Comme nts WBC (test code = 1001) 6.7 K/UL RBC (test code = 1002) 4.27 M/UL HEMOGLOBIN (test code = 1003) 14.9 G/DL HEMATOCRIT (test code = 1004) 40.5 % MCV (test code = 1005) 94.8 fL MCH (test code = 1006) 34.9 PG MCHC (test code = 1007) 36.8 G/DL RDW (test code = 1038) 12.9 % NEUTROPHILS (test code = 1008) 65.2 % LYMPHOCYTES (test code = 1010) 25.9 % MONOCYTES (test code = 1011) 6.2 % EOSINOPHILS (test code = 1012) 1.7 % BASOPHILS (test code = 1013) 0.5 % IMMATURE GRANULOCYTES (test code = 1036) 0.5 % NUCLEATED RBCS (test code = 1065) 0.0 /100WBC'S PLATELET COUNT (test code = 1015) 324 K/UL ABSOLUTE NEUTROPHILS (test c ode = 1066) 4.35 K/UL ABSOLUTE LYMPHOCYTES (test c ode = 1067) 1.72 K/UL ABSOLUTE MONOCYTES (test cod e = 1068) 0.41 K/UL ABSOLUTE EOSINOPHILS (test c ode = 1040) 0.11 K/UL ABSOLUTE BASOPHILS (test cod e = 1069) 0.03 K/UL ABS IMMATURE GRANULOCYTES (t est code = 1020) 0.03 K/UL ABS NUCLEATED RBCS (test cod e = 39690) 0.00 K/UL CBC W/AUTO [id number] 00:00:00* Test Item Value Reference Range Interpretation Comme nts WBC (test code = 1001) 6.7 K/UL RBC (test code = 1002) 4.27 M/UL HEMOGLOBIN (test code = 1003) 14.9 G/DL HEMATOCRIT (test code = 1004) 40.5 % MCV (test code = 1005) 94.8 fL MCH (test code = 1006) 34.9 PG MCHC (test code = 1007) 36.8 G/DL RDW (test code = 1038) 12.9 % NEUTROPHILS (test code = 1008) 65.2 % LYMPHOCYTES (test code = 1010) 25.9 % MONOCYTES (test code = 1011) 6.2 % EOSINOPHILS (test code = 1012) 1.7 % BASOPHILS (test code = 1013) 0.5 % IMMATURE GRANULOCYTES (test code = 1036) 0.5 % NUCLEATED RBCS (test code = 1065) 0.0 /100WBC'S PLATELET COUNT (test code = 1015) 324 K/UL ABSOLUTE NEUTROPHILS (test c ode = 1066) 4.35 K/UL ABSOLUTE LYMPHOCYTES (test c ode = 1067) 1.72 K/UL ABSOLUTE MONOCYTES (test cod e = 1068) 0.41 K/UL ABSOLUTE EOSINOPHILS (test c ode = 1040) 0.11 K/UL ABSOLUTE BASOPHILS (test cod e = 1069) 0.03 K/UL ABS IMMATURE GRANULOCYTES (t est code = 1020) 0.03 K/UL ABS NUCLEATED RBCS (test cod e = 90821) 0.00 K/UL CBC W/AUTO [id number] 00:00:00* Test Item Value Reference Range Interpretation Comme nts WBC (test code = 1001) 6.7 K/UL RBC (test code = 1002) 4.27 M/UL HEMOGLOBIN (test code = 1003) 14.9 G/DL HEMATOCRIT (test code = 1004) 40.5 % MCV (test code = 1005) 94.8 fL MCH (test code = 1006) 34.9 PG MCHC (test code = 1007) 36.8 G/DL RDW (test code = 1038) 12.9 % NEUTROPHILS (test code = 1008) 65.2 % LYMPHOCYTES (test code = 1010) 25.9 % MONOCYTES (test code = 1011) 6.2 % EOSINOPHILS (test code = 1012) 1.7 % BASOPHILS (test code = 1013) 0.5 % IMMATURE GRANULOCYTES (test code = 1036) 0.5 % NUCLEATED RBCS (test code = 1065) 0.0 /100WBC'S PLATELET COUNT (test code = 1015) 324 K/UL ABSOLUTE NEUTROPHILS (test c ode = 1066) 4.35 K/UL ABSOLUTE LYMPHOCYTES (test c ode = 1067) 1.72 K/UL ABSOLUTE MONOCYTES (test cod e = 1068) 0.41 K/UL ABSOLUTE EOSINOPHILS (test c ode = 1040) 0.11 K/UL ABSOLUTE BASOPHILS (test cod e = 1069) 0.03 K/UL ABS IMMATURE GRANULOCYTES (t est code = 1020) 0.03 K/UL ABS NUCLEATED RBCS (test cod e = 81584) 0.00 K/UL CBC W/AUTO [id number] 00:00:00* Test Item Value Reference Range Interpretation Comme nts WBC (test code = 1001) 6.7 K/UL RBC (test code = 1002) 4.27 M/UL HEMOGLOBIN (test code = 1003) 14.9 G/DL HEMATOCRIT (test code = 1004) 40.5 % MCV (test code = 1005) 94.8 fL MCH (test code = 1006) 34.9 PG MCHC (test code = 1007) 36.8 G/DL RDW (test code = 1038) 12.9 % NEUTROPHILS (test code = 1008) 65.2 % LYMPHOCYTES (test code = 1010) 25.9 % MONOCYTES (test code = 1011) 6.2 % EOSINOPHILS (test code = 1012) 1.7 % BASOPHILS (test code = 1013) 0.5 % IMMATURE GRANULOCYTES (test code = 1036) 0.5 % NUCLEATED RBCS (test code = 1065) 0.0 /100WBC'S PLATELET COUNT (test code = 1015) 324 K/UL ABSOLUTE NEUTROPHILS (test c ode = 1066) 4.35 K/UL ABSOLUTE LYMPHOCYTES (test c ode = 1067) 1.72 K/UL ABSOLUTE MONOCYTES (test cod e = 1068) 0.41 K/UL ABSOLUTE EOSINOPHILS (test c ode = 1040) 0.11 K/UL ABSOLUTE BASOPHILS (test cod e = 1069) 0.03 K/UL ABS IMMATURE GRANULOCYTES (t est code = 1020) 0.03 K/UL ABS NUCLEATED RBCS (test cod e = 72410) 0.00 K/UL CBC W/AUTO [id number] 00:00:00* Test Item Value Reference Range Interpretation Comme nts WBC (test code = 1001) 6.7 K/UL RBC (test code = 1002) 4.27 M/UL HEMOGLOBIN (test code = 1003) 14.9 G/DL HEMATOCRIT (test code = 1004) 40.5 % MCV (test code = 1005) 94.8 fL MCH (test code = 1006) 34.9 PG MCHC (test code = 1007) 36.8 G/DL RDW (test code = 1038) 12.9 % NEUTROPHILS (test code = 1008) 65.2 % LYMPHOCYTES (test code = 1010) 25.9 % MONOCYTES (test code = 1011) 6.2 % EOSINOPHILS (test code = 1012) 1.7 % BASOPHILS (test code = 1013) 0.5 % IMMATURE GRANULOCYTES (test code = 1036) 0.5 % NUCLEATED RBCS (test code = 1065) 0.0 /100WBC'S PLATELET COUNT (test code = 1015) 324 K/UL ABSOLUTE NEUTROPHILS (test c ode = 1066) 4.35 K/UL ABSOLUTE LYMPHOCYTES (test c ode = 1067) 1.72 K/UL ABSOLUTE MONOCYTES (test cod e = 1068) 0.41 K/UL ABSOLUTE EOSINOPHILS (test c ode = 1040) 0.11 K/UL ABSOLUTE BASOPHILS (test cod e = 1069) 0.03 K/UL ABS IMMATURE GRANULOCYTES (t est code = 1020) 0.03 K/UL ABS NUCLEATED RBCS (test cod e = 16526) 0.00 K/UL CBC W/AUTO [id number] 00:00:00* Test Item Value Reference Range Interpretation Comme nts WBC (test code = 1001) 6.7 K/UL RBC (test code = 1002) 4.27 M/UL HEMOGLOBIN (test code = 1003) 14.9 G/DL HEMATOCRIT (test code = 1004) 40.5 % MCV (test code = 1005) 94.8 fL MCH (test code = 1006) 34.9 PG MCHC (test code = 1007) 36.8 G/DL RDW (test code = 1038) 12.9 % NEUTROPHILS (test code = 1008) 65.2 % LYMPHOCYTES (test code = 1010) 25.9 % MONOCYTES (test code = 1011) 6.2 % EOSINOPHILS (test code = 1012) 1.7 % BASOPHILS (test code = 1013) 0.5 % IMMATURE GRANULOCYTES (test code = 1036) 0.5 % NUCLEATED RBCS (test code = 1065) 0.0 /100WBC'S PLATELET COUNT (test code = 1015) 324 K/UL ABSOLUTE NEUTROPHILS (test c ode = 1066) 4.35 K/UL ABSOLUTE LYMPHOCYTES (test c ode = 1067) 1.72 K/UL ABSOLUTE MONOCYTES (test cod e = 1068) 0.41 K/UL ABSOLUTE EOSINOPHILS (test c ode = 1040) 0.11 K/UL ABSOLUTE BASOPHILS (test cod e = 1069) 0.03 K/UL ABS IMMATURE GRANULOCYTES (t est code = 1020) 0.03 K/UL ABS NUCLEATED RBCS (test cod e = 98799) 0.00 K/UL CBC W/AUTO [id number] 00:00:00* Test Item Value Reference Range Interpretation Comme nts WBC (test code = 1001) 6.7 K/UL RBC (test code = 1002) 4.27 M/UL HEMOGLOBIN (test code = 1003) 14.9 G/DL HEMATOCRIT (test code = 1004) 40.5 % MCV (test code = 1005) 94.8 fL MCH (test code = 1006) 34.9 PG MCHC (test code = 1007) 36.8 G/DL RDW (test code = 1038) 12.9 % NEUTROPHILS (test code = 1008) 65.2 % LYMPHOCYTES (test code = 1010) 25.9 % MONOCYTES (test code = 1011) 6.2 % EOSINOPHILS (test code = 1012) 1.7 % BASOPHILS (test code = 1013) 0.5 % IMMATURE GRANULOCYTES (test code = 1036) 0.5 % NUCLEATED RBCS (test code = 1065) 0.0 /100WBC'S PLATELET COUNT (test code = 1015) 324 K/UL ABSOLUTE NEUTROPHILS (test c ode = 1066) 4.35 K/UL ABSOLUTE LYMPHOCYTES (test c ode = 1067) 1.72 K/UL ABSOLUTE MONOCYTES (test cod e = 1068) 0.41 K/UL ABSOLUTE EOSINOPHILS (test c ode = 1040) 0.11 K/UL ABSOLUTE BASOPHILS (test cod e = 1069) 0.03 K/UL ABS IMMATURE GRANULOCYTES (t est code = 1020) 0.03 K/UL ABS NUCLEATED RBCS (test cod e = 76965) 0.00 K/UL CBC W/AUTO [id number] 00:00:00* Test Item Value Reference Range Interpretation Comme nts WBC (test code = 1001) 6.7 K/UL RBC (test code = 1002) 4.27 M/UL HEMOGLOBIN (test code = 1003) 14.9 G/DL HEMATOCRIT (test code = 1004) 40.5 % MCV (test code = 1005) 94.8 fL MCH (test code = 1006) 34.9 PG MCHC (test code = 1007) 36.8 G/DL RDW (test code = 1038) 12.9 % NEUTROPHILS (test code = 1008) 65.2 % LYMPHOCYTES (test code = 1010) 25.9 % MONOCYTES (test code = 1011) 6.2 % EOSINOPHILS (test code = 1012) 1.7 % BASOPHILS (test code = 1013) 0.5 % IMMATURE GRANULOCYTES (test code = 1036) 0.5 % NUCLEATED RBCS (test code = 1065) 0.0 /100WBC'S PLATELET COUNT (test code = 1015) 324 K/UL ABSOLUTE NEUTROPHILS (test c ode = 1066) 4.35 K/UL ABSOLUTE LYMPHOCYTES (test c ode = 1067) 1.72 K/UL ABSOLUTE MONOCYTES (test cod e = 1068) 0.41 K/UL ABSOLUTE EOSINOPHILS (test c ode = 1040) 0.11 K/UL ABSOLUTE BASOPHILS (test cod e = 1069) 0.03 K/UL ABS IMMATURE GRANULOCYTES (t est code = 1020) 0.03 K/UL ABS NUCLEATED RBCS (test cod e = 09567) 0.00 K/UL COMPREHENSIVE METABOLIC PANEL [ADDED]2021-01-24 00:00:00* Test Item Value Reference Range Interpretation Comme nts GLUCOSE (test code = 2217) 96 MG/DL BUN (test code = 2208) 10 MG/DL CREATININE (test code = 2214) 0.68 MG/DL eGFR AMER. (test cod e = 01930) 121 ML/MIN/1.73 eGFR NON- AMER. (test code = 02946) 104 ML/MIN/1.73 CALC BUN/CREAT (test code = 2235) 15 RATIO SODIUM (test code = 2231) 141 MEQ/L POTASSIUM (test code = 2228) 4.3 MEQ/L CHLORIDE (test code = 2215) 102 MEQ/L CARBON DIOXIDE (test code = 2206) 25 MEQ/L CALCIUM (test code = 2209) 9.8 MG/DL PROTEIN, TOTAL (test code = 2229) 7.5 G/DL ALBUMIN (test code = 2201) 4.7 G/DL CALC GLOBULIN (test code = 2240) 2.8 G/DL CALC A/G RATIO (test code = 2234) 1.7 RATIO BILIRUBIN, TOTAL (test code = 2207) 0.2 MG/DL ALKALINE PHOSPHATASE (test code = 2204) 132 U/L AST (test code = 2218) 15 U/L ALT (test code = 2219) 20 U/L COMPREHENSIVE METABOLIC PANEL [ADDED]2021-01-24 00:00:00* Test Item Value Reference Range Interpretation Comme nts GLUCOSE (test code = 2217) 96 MG/DL BUN (test code = 2208) 10 MG/DL CREATININE (test code = 2214) 0.68 MG/DL eGFR AMER. (test cod e = 37342) 121 ML/MIN/1.73 eGFR NON- AMER. (test code = 23691) 104 ML/MIN/1.73 CALC BUN/CREAT (test code = 2235) 15 RATIO SODIUM (test code = 2231) 141 MEQ/L POTASSIUM (test code = 2228) 4.3 MEQ/L CHLORIDE (test code = 2215) 102 MEQ/L CARBON DIOXIDE (test code = 2206) 25 MEQ/L CALCIUM (test code = 2209) 9.8 MG/DL PROTEIN, TOTAL (test code = 2229) 7.5 G/DL ALBUMIN (test code = 2201) 4.7 G/DL CALC GLOBULIN (test code = 2240) 2.8 G/DL CALC A/G RATIO (test code = 2234) 1.7 RATIO BILIRUBIN, TOTAL (test code = 2207) 0.2 MG/DL ALKALINE PHOSPHATASE (test code = 2204) 132 U/L AST (test code = 2218) 15 U/L ALT (test code = 2219) 20 U/L COMPREHENSIVE METABOLIC PANEL [ADDED]2021-01-24 00:00:00* Test Item Value Reference Range Interpretation Comme nts GLUCOSE (test code = 2217) 96 MG/DL BUN (test code = 2208) 10 MG/DL CREATININE (test code = 2214) 0.68 MG/DL eGFR AMER. (test cod e = 52801) 121 ML/MIN/1.73 eGFR NON- AMER. (test code = 61939) 104 ML/MIN/1.73 CALC BUN/CREAT (test code = 2235) 15 RATIO SODIUM (test code = 2231) 141 MEQ/L POTASSIUM (test code = 2228) 4.3 MEQ/L CHLORIDE (test code = 2215) 102 MEQ/L CARBON DIOXIDE (test code = 2206) 25 MEQ/L CALCIUM (test code = 2209) 9.8 MG/DL PROTEIN, TOTAL (test code = 2229) 7.5 G/DL ALBUMIN (test code = 2201) 4.7 G/DL CALC GLOBULIN (test code = 2240) 2.8 G/DL CALC A/G RATIO (test code = 2234) 1.7 RATIO BILIRUBIN, TOTAL (test code = 2207) 0.2 MG/DL ALKALINE PHOSPHATASE (test code = 2204) 132 U/L AST (test code = 2218) 15 U/L ALT (test code = 2219) 20 U/L COMPREHENSIVE METABOLIC PANEL [ADDED]2021-01-24 00:00:00* Test Item Value Reference Range Interpretation Comme nts GLUCOSE (test code = 2217) 96 MG/DL BUN (test code = 2208) 10 MG/DL CREATININE (test code = 2214) 0.68 MG/DL eGFR AMER. (test cod e = 27376) 121 ML/MIN/1.73 eGFR NON- AMER. (test code = 94350) 104 ML/MIN/1.73 CALC BUN/CREAT (test code = 2235) 15 RATIO SODIUM (test code = 2231) 141 MEQ/L POTASSIUM (test code = 2228) 4.3 MEQ/L CHLORIDE (test code = 2215) 102 MEQ/L CARBON DIOXIDE (test code = 2206) 25 MEQ/L CALCIUM (test code = 2209) 9.8 MG/DL PROTEIN, TOTAL (test code = 2229) 7.5 G/DL ALBUMIN (test code = 2201) 4.7 G/DL CALC GLOBULIN (test code = 2240) 2.8 G/DL CALC A/G RATIO (test code = 2234) 1.7 RATIO BILIRUBIN, TOTAL (test code = 2207) 0.2 MG/DL ALKALINE PHOSPHATASE (test code = 2204) 132 U/L AST (test code = 2218) 15 U/L ALT (test code = 2219) 20 U/L COMPREHENSIVE METABOLIC PANEL [ADDED]2021-01-24 00:00:00* Test Item Value Reference Range Interpretation Comme nts GLUCOSE (test code = 2217) 96 MG/DL BUN (test code = 2208) 10 MG/DL CREATININE (test code = 2214) 0.68 MG/DL eGFR AMER. (test cod e = 46804) 121 ML/MIN/1.73 eGFR NON- AMER. (test code = 01342) 104 ML/MIN/1.73 CALC BUN/CREAT (test code = 2235) 15 RATIO SODIUM (test code = 2231) 141 MEQ/L POTASSIUM (test code = 2228) 4.3 MEQ/L CHLORIDE (test code = 2215) 102 MEQ/L CARBON DIOXIDE (test code = 2206) 25 MEQ/L CALCIUM (test code = 2209) 9.8 MG/DL PROTEIN, TOTAL (test code = 2229) 7.5 G/DL ALBUMIN (test code = 2201) 4.7 G/DL CALC GLOBULIN (test code = 2240) 2.8 G/DL CALC A/G RATIO (test code = 2234) 1.7 RATIO BILIRUBIN, TOTAL (test code = 2207) 0.2 MG/DL ALKALINE PHOSPHATASE (test code = 2204) 132 U/L AST (test code = 2218) 15 U/L ALT (test code = 2219) 20 U/L SARS-CoV-2 (COVID-19) by RT-PCR (HIGH RISK)2020-06-20 00:00:00* Test Item Value Reference Range Interpretation Comme nts SARS-CoV-2 INTERPRETATION (t est code = 57957) NEGATIVE SOURCE (test code = 08191) NOT SPECIFIED SARS-CoV-2 (COVID-19) by RT-PCR (HIGH RISK)2020-06-20 00:00:00* Test Item Value Reference Range Interpretation Comme nts SARS-CoV-2 INTERPRETATION (t est code = 81449) NEGATIVE SOURCE (test code = 03500) NOT SPECIFIED SARS-CoV-2 (COVID-19) by RT-PCR (HIGH RISK)2020-06-20 00:00:00* Test Item Value Reference Range Interpretation Comme nts SARS-CoV-2 INTERPRETATION (t est code = 06320) NEGATIVE SOURCE (test code = 68828) NOT SPECIFIED SARS-CoV-2 (COVID-19) by RT-PCR (HIGH RISK)2020-06-20 00:00:00* Test Item Value Reference Range Interpretation Comme nts SARS-CoV-2 INTERPRETATION (t est code = 09680) NEGATIVE SOURCE (test code = 56197) NOT SPECIFIED SARS-CoV-2 (COVID-19) by RT-PCR (HIGH RISK)2020-06-20 00:00:00* Test Item Value Reference Range Interpretation Comme nts SARS-CoV-2 INTERPRETATION (t est code = 39400) NEGATIVE SOURCE (test code = 60140) NOT SPECIFIED SARS-CoV-2 (COVID-19) by RT-PCR (HIGH RISK)2020-01-30 00:00:00* Test Item Value Reference Range Interpretation Comme nts SARS-CoV-2 INTERPRETATION (t est code = 38201) NEGATIVE SOURCE (test code = 59570) NOT SPECIFIED SARS-CoV-2 (COVID-19) by RT-PCR (HIGH RISK)2020-01-30 00:00:00* Test Item Value Reference Range Interpretation Comme nts SARS-CoV-2 INTERPRETATION (t est code = 46186) NEGATIVE SOURCE (test code = 46530) NOT SPECIFIED SARS-CoV-2 (COVID-19) by RT-PCR (HIGH RISK)2020-01-30 00:00:00* Test Item Value Reference Range Interpretation Comme nts SARS-CoV-2 INTERPRETATION (t est code = 21301) NEGATIVE SOURCE (test code = 73065) NOT SPECIFIED SARS-CoV-2 (COVID-19) by RT-PCR (HIGH RISK)2020-01-30 00:00:00* Test Item Value Reference Range Interpretation Comme nts SARS-CoV-2 INTERPRETATION (t est code = 96468) NEGATIVE SOURCE (test code = 51075) NOT SPECIFIED SARS-CoV-2 (COVID-19) by RT-PCR (HIGH RISK)2020-01-30 00:00:00* Test Item Value Reference Range Interpretation Comme nts SARS-CoV-2 INTERPRETATION (t est code = 00588) NEGATIVE SOURCE (test code = 39416) NOT SPECIFIED RPR [id number] 15:29:04* Test Item Value Reference Range Interpretation Comme nts RPR Qual (test code = RPR Qual) Non-Reactive Non-Reactive Reactive Control (test code = Reactive Control) Reactive Weak Reactive Control (test code = Weak Reactive Control) Weak Reactive Non-Reactive Control (test c ode = Non-Reactive Control) Non-Reactive Lot # (test code = Lot #) [id number] N Expiration Dt (test code = Expiration Dt) 05.03.2020 N Thyroid Stimulating [id number] 09:32:34* Test Item Value Reference Range Interpretation Comme nts TSH (test code = TSH) 6.560 mIU/mL 0.270-4.200 H Lipid [id number] 09:27:43* Test Item Value Reference Range Interpretation Comme nts Cholesterol Total (test code = Cholesterol Total) 192 mg/dL 0-200 RISK OF HEART DISEASEPublished by [place] Heart Association Analyte Optimal Borderline Increased RiskCHOL <200 200-239 >240TRIG <150 150-199 >200HDL Male >60 <40HDL Female >60 <50LDL <100 130-159 >160LDL Near optimal is 100-129 Triglycerides (test code = Triglycerides) 99 mg/dL 9-200 HDL (test code = HDL) 76 mg/dL 50-60 H LDL (test code = LDL) 97 mg/dL 0-130 The equation being used in this calculation is LDL = (Chol - HDL) - (Trig / 5) VLDL (test code = VLDL) 20 mg/dL 5-40 The equation willis ng used in this calculation is VLDL = Trig / 5 Chol/HDL (test code = Chol/HDL) 2.5 ratio 0.0-4.4 LDL/HDL Ratio (test code = LDL/HDL Ratio) 1 N The equati on being used in this calculation is LDL/HDL Ratio=LDL Calc/HDL Chol Creatine [id number] 00:05:39* Test Item Value Reference Range Interpretation Comme nts CK (test code = CK) 65 U/L 26-192 Troponin [id number] 00:05:39* Test Item Value Reference Range Interpretation Comme [facility] Troponin-T (test code = Troponin-T) <6.000 ng/L 0.000-14.000 The CV of the assay at 99th percentile for both male and female patient population is < 10%. A rise and fall in SHERIF with at least one value above the 99th percentile with clinical evidence of myocardial ischemia would support a diagnosis of AMI. A delta of at least 20% is recommended to assess acute changes in results above the 99th percentile in serial measurements. Stable SHERIF levels (<20%) delta above the 99th percentile URL would support a diagnosis of chronic myocardial injury. Comprehensive Metabolic [id number] 14:12:04* Test Item Value Reference Range Interpretation Comme [facility] Sodium Level (test code = So dium Level) 137.0 mmol/L 135.0-145.0 Potassium Level (test code = Potassium Level) 4.6 mmol/L 3.5-5.1 Chloride Level (test code = Chloride Level) 99 mmol/L 98-105 CO2 (test code = CO2) 26 mmol/L 22-29 Anion Gap (test code = Anion Gap) 12 mmol/L 7-16 BUN (test code = BUN) 9.10 mg/dL 6.00-20.00 Creatinine Level (test code = Creatinine Level) 0.80 mg/dL 0.50-0.90 BUN/Creat Ratio (test code = BUN/Creat Ratio) 11 N Glucose Level (test code = Glucose Level) 104 mg/dL 70-115 Calcium Level (test code = Calcium Level) 9.4 mg/dL 8.3-10.5 Alk Phos (test code = Alk Phos) 93 U/L 35-104 Bilirubin Total (test code = Bilirubin Total) 0.2 mg/dL 0.1-0.9 Albumin Level (test code = Albumin Level) 4.8 g/dL 3.5-5.2 Protein Total (test code = Protein Total) 7.7 g/dL 6.4-8.3 ALT (test code = ALT) 9 U/L 1-33 AST (test code = AST) 12 U/L 1-32 Globulin (test code = Globulin) 2.9 g/dL 2.9-3.1 A/G Ratio (test code = A/G Ratio) 1.7 ratio N Comprehensive Metabolic [id number] 14:12:04* Test Item Value Reference Range Interpretation Comme nts Sodium Level (test code = Sodium Level) 137.0 mmol/L 135.0-145.0 Potassium Level (test code = Potassium Level) 4.6 mmol/L 3.5-5.1 Chloride Level (test code = Chloride Level) 99 mmol/L 98-105 CO2 (test code = CO2) 26 mmol/L 22-29 Anion Gap (test code = Anion Gap) 12 mmol/L 7-16 BUN (test code = BUN) 9.10 mg/dL 6.00-20.00 Creatinine Level (test code = Creatinine Level) 0.80 mg/dL 0.50-0.90 BUN/Creat Ratio (test code = BUN/Creat Ratio) 11 N Glucose Level (test code = Glucose Level) 104 mg/dL 70-115 Calcium Level (test code = Calcium Level) 9.4 mg/dL 8.3-10.5 Alk Phos (test code = Alk Phos) 93 U/L 35-104 Bilirubin Total (test code = Bilirubin Total) 0.2 mg/dL 0.1-0.9 Albumin Level (test code = Albumin Level) 4.8 g/dL 3.5-5.2 Protein Total (test code = Protein Total) 7.7 g/dL 6.4-8.3 ALT (test code = ALT) 9 U/L 1-33 AST (test code = AST) 12 U/L 1-32 Globulin (test code = Globulin) 2.9 g/dL 2.9-3.1 A/G Ratio (test code = A/G Ratio) 1.7 ratio N eGFR AA (test code = eGFR AA) >60 mL/min/1.73 m2 N eGFR (estimated Glomerular Filtration Rate) is an estimated value, calculated from the patient's serum creatinine using the MDRD equation. It is NOT the patient's actual GFR. The eGFR provides a more clinically useful measure of kidney disease than serum creatinine alone.This calculation takes sex and race into account, if the information is provided. If the race is not provided, and the patient is -Turk[place], multiply by 1.212. If sex is not provided, and the patient is female, multiply by 0.742. Results for patients <18 years of age have not been validated by the MDRD study and should be interpreted with caution. eGFR Result Interpretation:eGFR > or = 60 is in the Normal RangeeGFR < 60 may mean kidney diseaseeGFR < 15 may mean kidney failure Ranges recommended by the National Kidney Foundation, http://nkdep.nih.gov Alcohol [id number] 14:12:04* Test Item Value Reference Range Interpretation Comme nts Ethanol Level (test code = Ethanol Level) <0.00 g/dL 0.00-0.01 Intoxicated 0.08 0 g/dL or more Ethanol Inst (test code = Ethanol Inst) <0 N Comprehensive Metabolic [id number] 14:12:04* Test Item Value Reference Range Interpretation Comme nts Sodium Level (test code = Sodium Level) 137.0 mmol/L 135.0-145.0 Potassium Level (test code = Potassium Level) 4.6 mmol/L 3.5-5.1 Chloride Level (test code = Chloride Level) 99 mmol/L 98-105 CO2 (test code = CO2) 26 mmol/L 22-29 Anion Gap (test code = Anion Gap) 12 mmol/L 7-16 BUN (test code = BUN) 9.10 mg/dL 6.00-20.00 Creatinine Level (test code = Creatinine Level) 0.80 mg/dL 0.50-0.90 BUN/Creat Ratio (test code = BUN/Creat Ratio) 11 N Glucose Level (test code = Glucose Level) 104 mg/dL 70-115 Calcium Level (test code = Calcium Level) 9.4 mg/dL 8.3-10.5 Alk Phos (test code = Alk Phos) 93 U/L 35-104 Bilirubin Total (test code = Bilirubin Total) 0.2 mg/dL 0.1-0.9 Albumin Level (test code = Albumin Level) 4.8 g/dL 3.5-5.2 Protein Total (test code = Protein Total) 7.7 g/dL 6.4-8.3 ALT (test code = ALT) 9 U/L 1-33 AST (test code = AST) 12 U/L 1-32 Globulin (test code = Globulin) 2.9 g/dL 2.9-3.1 A/G Ratio (test code = A/G Ratio) 1.7 ratio N eGFR AA (test code = eGFR AA) >60 mL/min/1.73 m2 N eGFR (estimated Glomerular Filtration Rate) is an estimated value, calculated from the patient's serum creatinine using the MDRD equation. It is NOT the patient's actual GFR. The eGFR provides a more clinically useful measure of kidney disease than serum creatinine alone.This calculation takes sex and race into account, if the information is provided. If the race is not provided, and the patient is -Turk[place], multiply by 1.212. If sex is not provided, and the patient is female, multiply by 0.742. Results for patients <18 years of age have not been validated by the MDRD study and should be interpreted with caution. eGFR Result Interpretation:eGFR > or = 60 is in the Normal RangeeGFR < 60 may mean kidney diseaseeGFR < 15 may mean kidney failure Ranges recommended by the National Kidney Foundation, http://nkdep.nih.gov eGFR Non-AA (test code = eGFR Non-AA) >60.00 mL/min/1.73 m2 N eGFR (estimated Glomerular Filtration Rate) is an estimated value, calculated from the patient's serum creatinine using the MDRD equation. It is NOT the patient's actual GFR. The eGFR provides a more clinically useful measure of kidney disease than serum creatinine alone.This calculation takes sex and race into account, if the information is provided. If the race is not provided, and the patient is -Turk[place], multiply by 1.212. If sex is not provided, and the patient is female, multiply by 0.742. Results for patients <18 years of age have not been validated by the MDRD study and should be interpreted with caution. eGFR Result Interpretation:eGFR > or = 60 is in the Normal RangeeGFR < 60 may mean kidney diseaseeGFR < 15 may mean kidney failure Ranges recommended by the National Kidney Foundation, http://nkdep.nih.gov Urine Drug [id number] 14:08:08* Test Item Value Reference Range Interpretation Comme nts Amphetamine Screen Ur (test code = Amphetamine Screen Ur) Negative Negative Barbiturate Screen Ur (test code = Barbiturate Screen Ur) Negative Negative Benzodiazepines Ur (test code = Benzodiazepines Ur) Negative Negative Cocaine Screen Ur (test code = Cocaine Screen Ur) Negative Negative U Methadone Scr (test code = U Methadone Scr) Negative Negative Opiate Screen Ur (test code = Opiate Screen Ur) Negative Negative U PCP Scrn (test code = U PCP Scrn) Negative Negative Cannabinoid Screen Ur (test code = Cannabinoid Screen Ur) POSITIVE Negative A U TCA (test code = U TCA) POSITIVE Negative A The results of a ll drug screen tests are only preliminary. Clinical consideration and professional judgment should be applied to any drug of abuse test result, particularly when preliminary positive results are obtained. Please order a separate confirmatory test if desired. HCG Qualitative [id number] 14:02:44* Test Item Value Reference Range Interpretation Comme nts hCG Ur (test code = hCG Ur) Negative If the result is "Negative" in patients suspected to be , recommend retest with a sample obtained 48 to 72 hours later, or by ordering a quantitative assay. If the result is "Borderline" testing should be repeated in 48 to 72 hours. Lot # (test code = Lot #) [id number] N Expiration Dt (test code = Expiration Dt) 2020-10-01 N Neg Control (test code = Neg Control) Negative Pos Control (test code = Pos Control) Positive Internal QC (test code = Internal QC) Acceptable Urinalysis with Culture, if [id number] 14:02:27* Test Item Value Reference Range Interpretation Comme nts UA Color (test code = UA Color) YELLO Yellow UA Appear (test code = UA Appear) CLEAR Clear UA pH (test code = UA pH) 5 N UA Spec Grav (test code = UA Spec Grav) 1.005 1.001-1.035 UA Glucose (test code = UA Glucose) NEG Negative UA Bili (test code = UA Bili) NEG Negative UA Ketones (test code = UA Ketones) NEG Negative UA Blood (test code = UA Blood) NEG Negative UA Protein (test code = UA Protein) NEG Negative UA Urobilinogen (test code = UA Urobilinogen) 0.2 mg/dL N UA Nitrite (test code = UA Nitrite) NEG Negative UA Leuk Est (test code = UA Leuk Est) NEG Negative UA Micro Ind? (test code = UA Micro Ind?) Not Indicated Not Indicated Result cre ated by rule [id number] Complete Blood Count with [id number] 13:51:51* Test Item Value Reference Range Interpretation Comme nts WBC (test code = WBC) 5.8 x10 4.4-10.5 RBC (test code = RBC) 4.41 x10 3.75-5.20 Hgb (test code = Hgb) 14.5 g/dL 12.2-14.8 MCV (test code = MCV) 97.10 fL 80.00-100.00 Hct (test code = Hct) 42.8 % 36.5-44.4 MCHC (test code = MCHC) 33.90 g/dL 32.00-37.50 RDW CV (test code = RDW CV) 12.4 % 11.5-14.5 MCH (test code = MCH) 32.9 pg 27.0-32.5 H Platelets (test code = Platelets) 373.0 x10 140.0-440.0 MPV (test code = MPV) 9.0 fL N Slide Review (test code = Slide Review) Auto Auto Result crea lluvia by [id number]_REV_AUTO nRBC (test code = nRBC) 0 N NRBC Abs (test code = NRBC Abs) 0.00 x10 N IPF (test code = IPF) 0 % N Automated [id number] 13:51:51* Test Item Value Reference Range Interpretation Comme nts Neutro Auto (test code = Svetlana tro Auto) 68.5 % 36.0-70.0 Lymph Auto (test code = Lymph Auto) 23.6 % 12.0-44.0 [place] Auto (test code = [place] Auto) 5.8 % 0.0-11.0 Eos, Auto (test code = Eos, Auto) 1.0 % 0.0-7.0 Basophil Auto (test code = B asophil Auto) 0.9 % 0.0-2.0 Neutro Absolute (test code = Neutro Absolute) 4.0 x10 1.6-7.4 Lymph Absolute (test code = Lymph Absolute) 1.38 x10 .50-4.60 [place] Absolute (test code = M bharathi Absolute) .34 x10 .00-1.20 Eos Absolute (test code = Eo s Absolute) 0.06 x10 0.00-0.74 Baso Absolute (test code = B aso Absolute) 0.05 x10 0.00-0.21 IG [id number] 13:51:51* Test Item Value Reference Range Interpretation Comme nts IG (test code = IG) 0.2 % 0.0-5.0 IG Abs (test code = IG Abs) 0 x10 N Creatine [id number] 08:22:26* Test Item Value Reference Range Interpretation Comme nts CK (test code = CK) 45 U/L 26-192 Troponin [id number] 16:44:24* Test Item Value Reference Range Interpretation Comme nts Troponin-T (test code = Troponin-T) <6.000 ng/L 0.000-14.000 The CV of the assay at 99th percentile for both male and female patient population is < 10%. A rise and fall in SHERIF with at least one value above the 99th percentile with clinical evidence of myocardial ischemia would support a diagnosis of AMI. A delta of at least 20% is recommended to assess acute changes in results above the 99th percentile in serial measurements. Stable SHERIF levels (<20%) delta above the 99th percentile URL would support a diagnosis of chronic myocardial injury. Magnesium [id number] 16:38:56* Test Item Value Reference Range Interpretation Comme [facility] Magnesium Level (test code = Magnesium Level) 1.8 mg/dL 1.7-2.5 Urine [id number] 09:23:16C Urine Added by [id number] growth at 24 hours. No growth at 48 hours.RPR [id number] 11:20:36* Test Item Value Reference Range Interpretation Comme nts RPR Qual (test code = RPR Qual) Non-Reactive Non-Reactive Reactive Control (test code = Reactive Control) Reactive Weak Reactive Control (test code = Weak Reactive Control) Weak Reactive Non-Reactive Control (test c ode = Non-Reactive Control) Non-Reactive Lot # (test code = Lot #) [id number] Expiration Dt (test code = Expiration Dt) 05-03-2020 N Hemoglobin [id number] 06:15:12* Test Item Value Reference Range Interpretation Comme nts Hemoglobin A1c (test code = Hemoglobin A1c) 5.1 % 4.8-5.9 Non Diabetic 4.8-5.9%Diabetic <7.0% Thyroid Stimulating [id number] 06:15:12* Test Item Value Reference Range Interpretation Comme nts TSH (test code = TSH) 3.620 mIU/mL 0.270-4.200 Lipid [id number] 05:41:18* Test Item Value Reference Range Interpretation Comme nts Cholesterol Total (test code = Cholesterol Total) 196 mg/dL 0-200 RISK OF HEART DISEASEPublished by [place] Heart Association Analyte Optimal Borderline Increased RiskCHOL <200 200-239 >240TRIG <150 150-199 >200HDL Male >60 <40HDL Female >60 <50LDL <100 130-159 >160LDL Near optimal is 100-129 Triglycerides (test code = Triglycerides) 144 mg/dL 9-200 HDL (test code = HDL) 92 mg/dL 50-60 H LDL (test code = LDL) 75 mg/dL 0-130 The equation being used in this calculation is LDL = (Chol - HDL) - (Trig / 5) VLDL (test code = VLDL) 29 mg/dL 5-40 The equation willis ng used in this calculation is VLDL = Trig / 5 Chol/HDL (test code = Chol/HDL) 2.1 ratio 0.0-4.4 LDL/HDL Ratio (test code = LDL/HDL Ratio) 1 N The equati on being used in this calculation is LDL/HDL Ratio=LDL Calc/HDL Chol Salicylate [id number] 21:58:13* Test Item Value Reference Range Interpretation Comme nts Salicylate Level (test code = Salicylate Level) 4.7 mg/dL 0.3-10.0 Comprehensive Metabolic [id number] 21:58:12* Test Item Value Reference Range Interpretation Comme nts Sodium Level (test code = So dium Level) 140.0 mmol/L 135.0-145.0 Potassium Level (test code = Potassium Level) 4.6 mmol/L 3.5-5.1 Chloride Level (test code = Chloride Level) 101 mmol/L 98-105 CO2 (test code = CO2) 28 mmol/L 22-29 Anion Gap (test code = Anion Gap) 11 mmol/L 7-16 BUN (test code = BUN) 14.80 mg/dL 6.00-20.00 Creatinine Level (test code = Creatinine Level) 1.00 mg/dL 0.50-0.90 H BUN/Creat Ratio (test code = BUN/Creat Ratio) 15 N Glucose Level (test code = Glucose Level) 92 mg/dL 70-115 Calcium Level (test code = Calcium Level) 9.5 mg/dL 8.3-10.5 Alk Phos (test code = Alk Phos) 77 U/L 35-104 Bilirubin Total (test code = Bilirubin Total) 0.3 mg/dL 0.1-0.9 Albumin Level (test code = Albumin Level) 5.0 g/dL 3.5-5.2 Protein Total (test code = Protein Total) 7.5 g/dL 6.4-8.3 ALT (test code = ALT) 10 U/L 1-33 AST (test code = AST) 13 U/L 1-32 Globulin (test code = Globulin) 2.5 g/dL 2.9-3.1 L A/G Ratio (test code = A/G Ratio) 2.0 ratio N Acetaminophen [id number] 21:58:12* Test Item Value Reference Range Interpretation Comme nts Acetaminophen Level (test co de = Acetaminophen Level) <15.0 ug/mL(g) 15.0-30.0 Comprehensive Metabolic [id number] 21:58:12* Test Item Value Reference Range Interpretation Comme nts Sodium Level (test code = Sodium Level) 140.0 mmol/L 135.0-145.0 Potassium Level (test code = Potassium Level) 4.6 mmol/L 3.5-5.1 Chloride Level (test code = Chloride Level) 101 mmol/L 98-105 CO2 (test code = CO2) 28 mmol/L 22-29 Anion Gap (test code = Anion Gap) 11 mmol/L 7-16 BUN (test code = BUN) 14.80 mg/dL 6.00-20.00 Creatinine Level (test code = Creatinine Level) 1.00 mg/dL 0.50-0.90 H BUN/Creat Ratio (test code = BUN/Creat Ratio) 15 N Glucose Level (test code = Glucose Level) 92 mg/dL 70-115 Calcium Level (test code = Calcium Level) 9.5 mg/dL 8.3-10.5 Alk Phos (test code = Alk Phos) 77 U/L 35-104 Bilirubin Total (test code = Bilirubin Total) 0.3 mg/dL 0.1-0.9 Albumin Level (test code = Albumin Level) 5.0 g/dL 3.5-5.2 Protein Total (test code = Protein Total) 7.5 g/dL 6.4-8.3 ALT (test code = ALT) 10 U/L 1-33 AST (test code = AST) 13 U/L 1-32 Globulin (test code = Globulin) 2.5 g/dL 2.9-3.1 L A/G Ratio (test code = A/G Ratio) 2.0 ratio N eGFR AA (test code = eGFR AA) >60 mL/min/1.73 m2 N eGFR (estimated Glomerular Filtration Rate) is an estimated value, calculated from the patient's serum creatinine using the MDRD equation. It is NOT the patient's actual GFR. The eGFR provides a more clinically useful measure of kidney disease than serum creatinine alone.This calculation takes sex and race into account, if the information is provided. If the race is not provided, and the patient is -Turkmen, multiply by 1.212. If sex is not provided, and the patient is female, multiply by 0.742. Results for patients <18 years of age have not been validated by the MDRD study and should be interpreted with caution. eGFR Result Interpretation:eGFR > or = 60 is in the Normal RangeeGFR < 60 may mean kidney diseaseeGFR < 15 may mean kidney failure Ranges recommended by the National Kidney Foundation, http://nkdep.nih.gov Alcohol [id number] 21:58:12* Test Item Value Reference Range Interpretation Comme nts Ethanol Level (test code = Ethanol Level) <0.00 g/dL 0.00-0.01 Intoxicated 0.08 0 g/dL or more Ethanol Inst (test code = Ethanol Inst) <0 N Comprehensive Metabolic [id number] 21:58:12* Test Item Value Reference Range Interpretation Comme nts Sodium Level (test code = Sodium Level) 140.0 mmol/L 135.0-145.0 Potassium Level (test code = Potassium Level) 4.6 mmol/L 3.5-5.1 Chloride Level (test code = Chloride Level) 101 mmol/L 98-105 CO2 (test code = CO2) 28 mmol/L 22-29 Anion Gap (test code = Anion Gap) 11 mmol/L 7-16 BUN (test code = BUN) 14.80 mg/dL 6.00-20.00 Creatinine Level (test code = Creatinine Level) 1.00 mg/dL 0.50-0.90 H BUN/Creat Ratio (test code = BUN/Creat Ratio) 15 N Glucose Level (test code = Glucose Level) 92 mg/dL 70-115 Calcium Level (test code = Calcium Level) 9.5 mg/dL 8.3-10.5 Alk Phos (test code = Alk Phos) 77 U/L 35-104 Bilirubin Total (test code = Bilirubin Total) 0.3 mg/dL 0.1-0.9 Albumin Level (test code = Albumin Level) 5.0 g/dL 3.5-5.2 Protein Total (test code = Protein Total) 7.5 g/dL 6.4-8.3 ALT (test code = ALT) 10 U/L 1-33 AST (test code = AST) 13 U/L 1-32 Globulin (test code = Globulin) 2.5 g/dL 2.9-3.1 L A/G Ratio (test code = A/G Ratio) 2.0 ratio N eGFR AA (test code = eGFR AA) >60 mL/min/1.73 m2 N eGFR (estimated Glomerular Filtration Rate) is an estimated value, calculated from the patient's serum creatinine using the MDRD equation. It is NOT the patient's actual GFR. The eGFR provides a more clinically useful measure of kidney disease than serum creatinine alone.This calculation takes sex and race into account, if the information is provided. If the race is not provided, and the patient is -Turkmen, multiply by 1.212. If sex is not provided, and the patient is female, multiply by 0.742. Results for patients <18 years of age have not been validated by the MDRD study and should be interpreted with caution. eGFR Result Interpretation:eGFR > or = 60 is in the Normal RangeeGFR < 60 may mean kidney diseaseeGFR < 15 may mean kidney failure Ranges recommended by the National Kidney Foundation, http://nkdep.nih.gov eGFR Non-AA (test code = eGFR Non-AA) 59.96 mL/min/1.73 m2 N eGFR (estimated Glomerular Filtration Rate) is an estimated value, calculated from the patient's serum creatinine using the MDRD equation. It is NOT the patient's actual GFR. The eGFR provides a more clinically useful measure of kidney disease than serum creatinine alone.This calculation takes sex and race into account, if the information is provided. If the race is not provided, and the patient is -Turkmen, multiply by 1.212. If sex is not provided, and the patient is female, multiply by 0.742. Results for patients <18 years of age have not been validated by the MDRD study and should be interpreted with caution. eGFR Result Interpretation:eGFR > or = 60 is in the Normal RangeeGFR < 60 may mean kidney diseaseeGFR < 15 may mean kidney failure Ranges recommended by the National Kidney Foundation, http://nkdep.nih.gov Urinalysis [id number] 21:43:20* Test Item Value Reference Range Interpretation Comme nts UA WBC (test code = UA WBC) 6-10 0-5 A UA RBC (test code = UA RBC) 0-5 0-5 UA Bacteria (test code = UA Bacteria) Few A UA Squam Epithelial (test co de = UA Squam Epithelial) TNTC A HCG Qualitative [id number] 21:36:40* Test Item Value Reference Range Interpretation Comme nts HCG, Serum Qual (test code = HCG, Serum Qual) Negative Lot # (test code = Lot #) [id number] N Expiration Dt (test code = Expiration Dt) 08/31/2020 N Neg Control (test code = Neg Control) Negative Pos Control (test code = Pos Control) Positive Internal QC (test code = Int ernal QC) Acceptable Urine Drug [id number] 21:24:35* Test Item Value Reference Range Interpretation Comme nts Amphetamine Screen Ur (test code = Amphetamine Screen Ur) POSITIVE Negative A Barbiturate Screen Ur (test code = Barbiturate Screen Ur) Negative Negative Benzodiazepines Ur (test code = Benzodiazepines Ur) Negative Negative Cocaine Screen Ur (test code = Cocaine Screen Ur) Negative Negative U Methadone Scr (test code = U Methadone Scr) Negative Negative Opiate Screen Ur (test code = Opiate Screen Ur) Negative Negative U PCP Scrn (test code = U PCP Scrn) Negative Negative Cannabinoid Screen Ur (test code = Cannabinoid Screen Ur) POSITIVE Negative A U TCA (test code = U TCA) Negative Negative The results of a ll drug screen tests are only preliminary. Clinical consideration and professional judgment should be applied to any drug of abuse test result, particularly when preliminary positive results are obtained. Please order a separate confirmatory test if desired. Complete Blood Count with [id number] 21:15:33* Test Item Value Reference Range Interpretation Comme nts WBC (test code = WBC) 6.2 x10 4.4-10.5 RBC (test code = RBC) 4.43 x10 3.75-5.20 Hgb (test code = Hgb) 14.6 g/dL 12.2-14.8 Hct (test code = Hct) 43.4 % 36.5-44.4 MCV (test code = MCV) 98.00 fL 80.00-100.00 MCHC (test code = MCHC) 33.60 g/dL 32.00-37.50 RDW CV (test code = RDW CV) 12.7 % 11.5-14.5 MCH (test code = MCH) 33.0 pg 27.0-32.5 H Platelets (test code = Platelets) 320.0 x10 140.0-440.0 MPV (test code = MPV) 9.3 fL N Slide Review (test code = Slide Review) Auto Auto Result crea lluvia by GL_SJM_SLIDE_REV_AUTO nRBC (test code = nRBC) 0 N NRBC Abs (test code = NRBC Abs) 0.00 x10 N IPF (test code = IPF) 0 % N Automated [id number] 21:15:33* Test Item Value Reference Range Interpretation Comme nts Neutro Auto (test code = Svetlana tro Auto) 53.2 % 36.0-70.0 Lymph Auto (test code = Lymph Auto) 37.9 % 12.0-44.0 [place] Auto (test code = [place] Auto) 6.1 % 0.0-11.0 Eos, Auto (test code = Eos, Auto) 2.1 % 0.0-7.0 Basophil Auto (test code = B asophil Auto) 0.5 % 0.0-2.0 Neutro Absolute (test code = Neutro Absolute) 3.3 x10 1.6-7.4 Lymph Absolute (test code = Lymph Absolute) 2.34 x10 .50-4.60 [place] Absolute (test code = M bharathi Absolute) .38 x10 .00-1.20 Eos Absolute (test code = Eo s Absolute) 0.13 x10 0.00-0.74 Baso Absolute (test code = B aso Absolute) 0.03 x10 0.00-0.21 IG [id number] 21:15:33* Test Item Value Reference Range Interpretation Comme nts IG (test code = IG) 0.2 % 0.0-5.0 IG Abs (test code = IG Abs) 0 x10 N Urinalysis with Culture, if [id number] 21:12:46* Test Item Value Reference Range Interpretation Comme nts UA Color (test code = UA Color) YELLO Yellow UA Appear (test code = UA Appear) CLEAR Clear UA pH (test code = UA pH) 5 N UA Spec Grav (test code = UA Spec Grav) 1.027 1.001-1.035 UA Glucose (test code = UA Glucose) NEG Negative UA Bili (test code = UA Bili) NEG Negative UA Ketones (test code = UA Ketones) 5 mg/dL Negative UA Blood (test code = UA Blood) 10 cells/mcL Negative A UA Protein (test code = UA Protein) NEG Negative UA Urobilinogen (test code = UA Urobilinogen) 0.2 mg/dL N UA Nitrite (test code = UA Nitrite) NEG Negative UA Leuk Est (test code = UA Leuk Est) NEG Negative UA Micro Ind? (test code = UA Micro Ind?) Indicated Not Indicated A Result cre ated by rule GL_SJM_UA_MICRO_IN D
[2023-11-25 06:01] LABS: Absolute Basophils 0.1 K/uL (0-0.5); Absolute Eosinophils 0.1 K/uL (0-0.5); Absolute Lymphocytes (CBC) 2.8 K/uL (0.7-4.9); Absolute Monocytes 0.6 K/uL (0.1-1.3); Absolute Neutrophil 8.2 K/uL (1.8-8.0); Basophils % 0.6 % (0-1.3); Hematocrit 42.9 % (36.0-45.0); Hemoglobin 14.2 g/dL (12.0-15.0); Lymphocytes % 23.7 % (15.3-44.8); MCH 32.3 pg (27.0-35.0); MCHC 33.2 g/dL (32.0-36.0); MCV 97.3 fL (80-100); MPV 7.5 fL (7.6-11.3); Monocytes % 5.4 % (3.3-12.3); Neutrophils % 69.3 % (41.7-73.7); Platelets 445 thou/uL (152-406); RBC Red Blood Cell Count 4.41 M/uL (3.86-4.86); Red Cell Distribution Width 12.9 % (12.1-15.2)
[2023-11-25 06:15] LABS: PT Prothrombin Time 10.3 SECONDS (9.5-12.5); Protime INR 0.93
[2023-11-25] MEDS ORDERED: NITROGLYCERIN 0.4 MG/TAB SL ONE (06:19)
[2023-11-25] MEDS ORDERED: ONDANSETRON 4 MG/2 ML VIAL ONE ×3 (06:19→12:20)
[2023-11-25 06:22] LABS: ALT/SGPT 27 U/L (13-56); AST/SGOT 14 U/L (15-37); Albumin 4.1 g/dL (3.4-5.0); Alkaline Phosphatase 146 U/L (45-117); Anion Gap 12.5 mEq/L (5.0-15.0); BUN Blood Urea Nitrogen 12 mg/dL (7-18); Bicarbonate 27 mEq/L (21-32); Bilirubin Direct < 0.2 mg/dL (0-0.2); Bilirubin Indirect, Calculated 0.1 mg/dL (0.2-0.8); Bilirubin Total 0.3 mg/dL (0.2-1.0); Globulin 4.2 g/dL (2.3-3.5); Glomerular Filtration Rate 68 ml/min (=/>90); Glucose Level 184 mg/dL (74-106); Magnesium 1.9 mg/dL (1.6-2.4); NT PRO-BNP 144 pg/mL (<125); Potassium 3.5 mEq/L (3.5-5.1); Protein, Total 8.3 g/dL (6.4-8.2); Sodium Level 137 mEq/L (136-145); Troponin High Sensitivity 20.5 pg/mL (<58.9)
--- NOTE | 2023-11-25 06:41 | ER ---
Nurse's Notes [facility] Name: Araceli Cooney Age: 48 yrs Sex: Female : 1975 Arrival Date: 11/25/2023 Time: 05:39 Bed 3 Private MD: Diagnosis: Chest pain, hypertension Presentation: 11/24 05:52 Chief complaint: EMS states: Called to patient's home due to patient have chest pain. 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 Pt states that the pain is to the center of her chest and radiates down. Pt describes the pain as a heaviness. Pt also reports nausea. Coronavirus screen: Client denies travel out of the [place] in the last 14 days. At this time, the client does not indicate any symptoms associated with coronavirus-19. Ebola Screen: Patient denies travel to an Ebola-affected area in the 21 days before illness onset. No symptoms or risks identified at this time. Initial Sepsis Screen: Does the patient meet any 2 criteria? No. Patient's initial sepsis screen is negative. Does the patient have a suspected source of infection? No. Patient's initial sepsis screen is negative. Risk Assessment: Do you want to hurt yourself or someone else? Patient reports no desire to harm self or others. Onset of symptoms was November 25, 2023. 05:52 Method Of Arrival: EMS: [facility] 10 05:52 Acuity: JOSE 2 cm10 Triage Assessment: 05:54 General: Appears in no apparent distress. uncomfortable, Behavior is calm, cooperative. cm10 Pain: Complains of pain in chest Pain currently is 8 out of 10 on a pain scale. Quality of pain is described as heavy, Pain began 4 hours ago. Also complains of diaphoresis. Neuro: No deficits noted. Level of Consciousness is awake, alert, obeys commands, Oriented to person, place, time, situation, Appropriate for age. Cardiovascular: No deficits noted. 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 quality is heaviness, is located in substernal area began 4 hours prior to arrival episodes are continuous. Respiratory: No deficits noted. Airway is patent Respiratory effort is even, unlabored, Respiratory pattern is regular, symmetrical. Derm: Skin is intact. Musculoskeletal: No deficits noted. Range of motion: intact in all extremities. 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 - Infectious Disease History:: Denies. - Social history:: Smoking status: Reported history of juuling and/or vaping. Screenin:53 [facility] ED Fall Risk Assessment (Adult) History of falling in the last 3 months, tm6 including since admission No falls in past 3 months (0 pts) Confusion or Disorientation No (0 pts) Intoxicated or Sedated No (0 pts) Impaired Gait No (0 pts) Mobility Assist Device Used No (0 pt) Altered Elimination No (0 pt) Score/Fall Risk Level 0 - 2 = Low Risk Oriented to surroundings, Maintained a safe environment, Educated pt \T\ family on fall prevention, incl call for assistance when getting out of bed. Abuse screen: Denies threats or abuse. Denies injuries from another. Nutritional screening: No deficits noted. Tuberculosis screening: No symptoms or risk factors identified. Assessment: 06:03 General: Appears uncomfortable, ill, Behavior is cooperative. Pain: Complains of pain tm6 in chest Pain does not radiate. Also complains of nausea. Pain: Pain currently is 8 out of 10 on a pain scale. Neuro: Level of Consciousness is awake, alert, obeys commands, Oriented to person, place, time, situation. Cardiovascular: Reports chest pain, diaphoresis, Patient's skin is warm and dry. Rhythm is sinus rhythm Chest pain. Respiratory: Airway is patent Respiratory effort is even, unlabored, Respiratory pattern is regular, symmetrical. GI: Abdomen is round non-distended, Reports nausea. : No signs and/or symptoms were reported regarding the genitourinary system. EENT: No signs and/or symptoms were reported regarding the EENT system. Derm: No signs and/or symptoms reported regarding the dermatologic system. Musculoskeletal: No signs and/or symptoms reported regarding the musculoskeletal system. 13:25 General: Appears distressed, Behavior is unresponsive. General: Appears. Neuro: Level ap3 of Consciousness is unresponsive. Cardiovascular: Pulses are absent in right radial artery, right posterior tibial artery, left radial artery and left posterior tibial artery. Respiratory: Respiratory effort is Respiratory pattern is apnea. Respiratory: Respiratory effort is Respiratory pattern is. Respiratory: Airway via nasal trumpet. Derm: Skin is. Derm: Skin is dusky. Derm: 14:31 General: Appears Behavior is restless. Neuro: Level of Consciousness is awake, ap3 confused, Oriented to person, place. Vital Signs: 05:52 BP 167 / 110; Pulse 78; Resp 20; Pulse Ox 97% on R/A; Weight 108.86 kg; Height 4 ft. 11 cm10 in. ; Pain 8/10; 13:23 BP 237 / 142; Pulse 156; Resp 18 A; Temp 99.7(R); Pulse Ox 100% on ambu assisted ap3 bagging; 13:31 BP 175 / 95; Pulse 106; Pulse Ox 95% on 4 lpm NC; ap3 14:26 BP 134 / 88; Pulse 105; Pulse Ox 95% on 4 lpm NC; ap3 05:52 Body Mass Index 48.47 (108.86 kg, 149.86 cm) cm10 05:52 Pain Scale: Adult cm10 ED Course: 05:40 Patient arrived in ED. jj6 05:41 Amalia Davis MD is Attending Physician. sp3 05:45 EKG done, by ED staff, reviewed by Amalia Davis MD. O2 via room air. tm6 05:52 Serena Childers, RN is Primary Nurse. cm10 05:53 Patient has correct armband on for positive identification. Fall risk band placed. tm6 Placed in gown. Bed in low position. Call light in reach. Side rails up X2. Provided Education on: use of call mccray. Client placed on continuous cardiac and pulse oximetry monitoring. NIBP monitoring applied. shank tapper on. Pulse ox on. NIBP on. Noise minimized. Pillow given. 05:54 Triage completed. cm10 05:56 Initial lab(s) drawn, by me, sent to lab. Inserted saline lock: 18 gauge in left cm10 forearm, using aseptic technique. Blood collected. 05:56 Arm band placed on Patient placed in an exam room, on a stretcher, on teacher selection specialist, cm10 on pulse oximetry. EKG completed in triage. Results shown to MD. 06:02 XRAY Chest (1 view) In Process Unspecified. EDMS 06:03 Basic Metabolic Panel Sent. tm6 06:03 CBC with Diff Sent. tm6 06:03 LFT's Sent. tm6 06:03 Magnesium Sent. tm6 06:03 NT PRO-BNP Sent. tm6 06:03 PT-INR Sent. tm6 06:03 Troponin HS Sent. tm6 06:40 Ashwin Martin MD is Hospitalizing Provider. sp3 13:19 Patient was reported to have become unresponsive and having reported seizure-like ap3 activity during transport upstairs, patient rerouted to ER bed 3. Dr Bonilla, RT, Dr. Martin (Hospitalist), Kayce Madsen RN, Nata RN, Marci, RN, Grisel, RN, Nora ACEVES, Vocational Evaluator Cally and KETAN Crooks at bedside. Upon patients return, patient was cyanotic, unresponsive, \T\ apneic . pulses were palpable. 13:20 Attending Physician role handed off by Amalia Davis MD eb 13:20 Primary Nurse role handed off by Serena Childers RN eb 13:20 One on one care 2X1 care for 30 mins upon patients return to ED. ap3 13:25 Inserted saline lock: 20 gauge in right hand, using aseptic technique. ap3 13:36 Petty cath inserted, using sterile technique, 18 Fr., by ks, balloon inflated, to ap3 gravity drainage, returned clear yellow urine. Patient tolerated well. 13:[address] via stretcher. ap3 13:50 Ceasar Bonilla MD is Attending Physician. [facility] 14:00 Pt visited by daughter. ap3 14:34 Nora Jessica RN is Primary Nurse. ap3 15:23 Patient moved to MRI with KETAN Crooks. ap3 15:23 Report given to SUPERVISOR PAIRING AND INSPECTING. ap3 15:24 No provider procedures requiring assistance completed. Patient admitted, IV remains in ap3 place. 15:24 One on one care 124 minues. ap3 Administered Medications: 06:24 Drug: Ondansetron IVP 4 mg IVP once; over 2 minutes Route: IVP; Site: left forearm; tm6 06:24 Drug: Nitroglycerin Sublingual 0.4 mg Sublingual once Route: Sublingual; tm6 06:49 Drug: morphine IVP or IV 4 mg IVP once over 4 mins Route: IVP; Infused Over: 4 mins; tm6 Site: left forearm; 06:49 Drug: Nitroglycerin Sublingual 0.4 mg Sublingual once Route: Sublingual; tm6 06:49 Drug: Promethazine IVP 12.5 mg IVP once Route: IVP; Site: left forearm; tm6 13:27 Drug: Metoprolol IVP 5 mg IVP once; Hold for SBP <100 or HR <60. Route: IVP; Site: left ap3 forearm; 14:36 Follow up: Response: No adverse reaction; Blood pressure is lowered ap3 13:36 Drug: Keppra IV 1000 mg IV at bolus once Route: IV; Rate: bolus; Site: right hand; ap3 14:35 Follow up: IV Status: Completed infusion; IV Intake: 100ml ap3 13:36 Drug: Ativan IVP 2 mg IVP once Route: IVP; Site: left forearm; ap3 14:35 Follow up: Response: No adverse reaction; Anxiety decreased ap3 14:59 Drug: Keppra IV 1000 mg IV at bolus once Route: IV; Rate: bolus; Site: right hand; ap3 15:26 Follow up: IV Status: Infusion continued upon admission ap3 Medication: 05:56 VIS not applicable for this client. cm10 Intake: 14:35 IV: 100ml; Total: 100ml. ap3 Outcome: 06:40 Decision to Hospitalize by Provider. sp3 13:15 Patient left the ED. eb 15:25 Patient left the ED. hb 15:25 Admitted to ICU accompanied by nurse, via stretcher, room ICU 5, on monitor, Other With madhu Crooks RN to MRI first then to ICU 15:25 Condition: stable 15:26 Instructed on the need for admit, ap3 Signatures: Dispatcher [employer] EDMS Ceasar Bonilla MD MD cha Baxter, Heather RN RN Nora Jessica RN RN aida3 Radha Chung Setul, MD MD sp3 Jeffries, Jennifer jj6 Martinez, Clarissa, RN RN cm10 Peggy Black RN RN tm6 Corrections: (The following items were deleted from the chart) 14:27 13:31 BP 175 / 95; Pulse 106bpm; ap3 ap3 14:27 14:26 BP 134 / 88; Pulse 105bpm; ap3 ap3 15:24 13:20 One-on-one care X 120 minutes ap3 ap3
--- NOTE | 2023-11-25 06:41 | EDPHYS ---
Physician Documentation [facility] Name: Araceli Cooney Age: 48 yrs Sex: Female : 1975 Arrival Date: 11/25/2023 Time: 05:39 Bed 3 Private MD: ED Physician Ceasar Bonilla HPI: 11/24 06:29 This 48 yrs old Female presents to ER via EMS with complaints of Chest Pain. sp3 06:29 48-year-old female with history of prior myocardial infarction, hypertension, diabetes sp3 with no prior visits here presents to the ED with chief complaint chest pain starting at approximately 4:40 AM which awoke her from sleep. EMS arrived to find patient in chest pain and gave aspirin and transported to the ED. Patient denies any fever, URI symptoms, shortness of breath, back pain, abdominal pain, vomiting, diarrhea, syncope, near syncope, prolonged immobilization, prior DVT or PE, or any other signs or symptoms on ROS at this time.. 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 - Infectious Disease History:: Denies. - Social history:: Smoking status: Reported history of juuling and/or vaping. ROS: 06:30 Constitutional: Negative for fever, chills, and weight loss, Eyes: Negative for injury, sp3 pain, redness, and discharge, Neck: Negative for injury, pain, and swelling, Respiratory: Negative for shortness of breath, cough, wheezing, and pleuritic chest pain, Abdomen/GI: Negative for abdominal pain, nausea, vomiting, diarrhea, and constipation, Back: Negative for injury and pain, MS/Extremity: Negative for injury and deformity, Skin: Negative for injury, rash, and discoloration, Neuro: Negative for headache, weakness, numbness, tingling, and seizure, Psych: Negative for depression, anxiety, suicide ideation, homicidal ideation, and hallucinations, Allergy/Immunology: Negative for hives, rash, and allergies, Endocrine: Negative for neck swelling, polydipsia, polyuria, polyphagia, and marked weight changes, Hematologic/Lymphatic: Negative for swollen nodes, abnormal bleeding, and unusual bruising, 06:30 All other systems are negative, Exam: 06:03 ECG was reviewed by the Attending Physician. EKG demonstrates normal sinus rhythm at 73 sp3 bpm with normal intervals, normal QRS, normal axis, nonspecific diffuse ST/T changes without evidence of acute ischemia. 06:31 Constitutional: This is a well developed, well nourished patient who is awake, alert, sp3 and in no acute distress. Head/Face: Normocephalic, atraumatic. Eyes: Pupils equal round and reactive to light, extra-ocular motions intact. Lids and lashes normal. Conjunctiva and sclera are non-icteric and not injected. Cornea within normal limits. Periorbital areas with no swelling, redness, or edema. Neck: Trachea midline, no thyromegaly or masses palpated, and no cervical lymphadenopathy. Supple, full range of motion without nuchal rigidity, or vertebral point tenderness. No Meningismus. Chest/axilla: Normal chest wall appearance and motion. Nontender with no deformity. No lesions are appreciated. Cardiovascular: Regular rate and rhythm with a normal S1 and S2. No gallops, murmurs, or rubs. Normal PMI, no JVD. No pulse deficits. Respiratory: Lungs have equal breath sounds bilaterally, clear to auscultation and percussion. No rales, rhonchi or wheezes noted. No increased work of breathing, no retractions or nasal flaring. Abdomen/GI: Soft, non-tender, with normal bowel sounds. No distension or tympany. No guarding or rebound. No evidence of tenderness throughout. Back: No spinal tenderness. No costovertebral tenderness. Full range of motion. Skin: Warm, dry with normal turgor. Normal color with no rashes, no lesions, and no evidence of cellulitis. MS/ Extremity: Pulses equal, no cyanosis. Neurovascular intact. Full, normal range of motion. Neuro: Awake and alert, GCS 15, oriented to person, place, time, and situation. Cranial nerves II-XII grossly intact. Motor strength 5/5 in all extremities. Sensory grossly intact. Cerebellar exam normal. Normal gait. Psych: Awake, alert, with orientation to person, place and time. Behavior, mood, and affect are within normal limits. Vital Signs: 05:52 BP 167 / 110; Pulse 78; Resp 20; Pulse Ox 97% on R/A; Weight 108.86 kg; Height 4 ft. 11 cm10 in. ; Pain 8/10; 13:23 BP 237 / 142; Pulse 156; Resp 18 A; Temp 99.7(R); Pulse Ox 100% on ambu assisted ap3 bagging; 13:31 BP 175 / 95; Pulse 106; Pulse Ox 95% on 4 lpm NC; ap3 14:26 BP 134 / 88; Pulse 105; Pulse Ox 95% on 4 lpm NC; ap3 05:52 Body Mass Index 48.47 (108.86 kg, 149.86 cm) cm10 05:52 Pain Scale: Adult cm10 MDM: 05:41 Patient medically screened. sp3 06:31 Data reviewed: vital signs, nurses notes, lab test result(s), EKG, radiologic studies. sp3 ED course: 48-year-old female with PMH above with probable high heart score (troponin pending). Differential diagnosis includes acute coronary syndrome spectrum, musculoskeletal chest pain, GI related chest pain, among others.. 06:38 ED course: Patient still having chest pain and nausea. Second nitroglycerin ordered as sp3 well as morphine and Phenergan. Initial EKG was normal however repeat EKG is also pending. Will monitor blood pressure to ensure it reduces as well. Laboratory values reviewed and troponin is negative. Discussed with Dr. Martin hospitalist medicine and we will admit observation and have cardiology see as well.. 11/24 05:41 Order name: Basic Metabolic Panel; Complete Time: 06:33 sp3 11/24 05:41 Order name: CBC with Diff; Complete Time: 06:18 sp3 11/24 05:41 Order name: LFT's; Complete Time: 06:33 sp3 11/24 05:41 Order name: Magnesium; Complete Time: 06:33 sp3 11/24 05:41 Order name: NT PRO-BNP; Complete Time: 06:33 sp3 11/24 05:41 Order name: PT-INR; Complete Time: 06:18 sp3 11/24 05:41 Order name: Troponin HS; Complete Time: 06:33 sp3 11/24 06:04 Order name: Glucose, Ancillary Testing; Complete Time: 06:18 EDMS 11/24 07:25 Order name: T4 Free EDMS 11/24 07:25 Order name: Thyroid Stimulating Hormone EDMS 11/24 07:25 Order name: Urinalysis w/ reflexes EDMS 11/24 07:25 Order name: Basic Metabolic Panel EDMS 11/24 07:25 Order name: Basic Metabolic Panel EDMS 11/24 07:25 Order name: CBC with Automated Diff EDMS 11/24 07:25 Order name: CBC with Automated Diff EDMS 11/24 07:25 Order name: Lipid Profile EDMS 11/24 07:25 Order name: Lipid Profile EDMS 11/24 07:25 Order name: Magnesium EDMS 11/24 07:25 Order name: Magnesium EDMS 11/24 07:25 Order name: Phosphorus EDMS 11/24 07:25 Order name: Phosphorus EDMS 11/24 07:25 Order name: Troponin High Sensitivity EDMS 11/24 07:25 Order name: Troponin High Sensitivity EDMS 11/24 07:25 Order name: Troponin High Sensitivity EDMS 11/24 07:25 Order name: Hemoglobin A1c EDMS 11/24 09:21 Order name: Glucose, Ancillary Testing; Complete Time: 13:49 EDMS 11/24 12:29 Order name: Glucose, Ancillary Testing; Complete Time: 13:49 EDMS 11/24 12:33 Order name: UDS ld1 11/24 13:12 Order name: Urine Drug Screen; Complete Time: 13:49 EDMS 11/24 13:40 Order name: glucometer results - FOR PT WITH NO ID ap3 11/24 13:52 Order name: Glucose, Ancillary Testing EDMS 11/24 13:52 Order name: ABG ld1 11/24 13:53 Order name: CBC with Diff ld1 11/24 13:53 Order name: CMP ld1 11/24 13:53 Order name: Magnesium ld1 11/24 13:53 Order name: Phosphorus ld1 11/24 13:53 Order name: Troponin High Sensitivity ld1 11/24 14:18 Order name: CBC with Automated Diff EDMS 11/24 14:34 Order name: Comprehensive Metabolic Panel EDMS 11/24 14:34 Order name: Phosphorus EDMS 11/24 14:34 Order name: Troponin High Sensitivity EDMS 11/24 14:34 Order name: Magnesium EDMS 11/24 05:41 Order name: XRAY Chest (1 view); Complete Time: 13:49 sp3 11/24 07:25 Order name: Echo with Doppler EDMS 11/24 07:51 Order name: Rest Stress Cardiac Imaging; Complete Time: 13:49 EDMS 11/24 14:11 Order name: CT EDMS 11/24 05:41 Order name: Cardiac monitoring; Complete Time: 06:03 sp3 11/24 05:41 Order name: EKG - Nurse/Tech; Complete Time: 06:03 sp3 11/24 05:41 Order name: IV Saline Lock; Complete Time: 06:03 sp3 11/24 05:41 Order name: Labs collected and sent; Complete Time: 06:03 sp3 11/24 05:41 Order name: O2 Per Protocol; Complete Time: 06:03 sp3 11/24 05:41 Order name: O2 Sat Monitoring; Complete Time: 06:03 sp3 Administered Medications: 06:24 Drug: Ondansetron IVP 4 mg IVP once; over 2 minutes Route: IVP; Site: left forearm; tm6 06:24 Drug: Nitroglycerin Sublingual 0.4 mg Sublingual once Route: Sublingual; tm6 06:49 Drug: morphine IVP or IV 4 mg IVP once over 4 mins Route: IVP; Infused Over: 4 mins; tm6 Site: left forearm; 06:49 Drug: Nitroglycerin Sublingual 0.4 mg Sublingual once Route: Sublingual; tm6 06:49 Drug: Promethazine IVP 12.5 mg IVP once Route: IVP; Site: left forearm; tm6 13:27 Drug: Metoprolol IVP 5 mg IVP once; Hold for SBP <100 or HR <60. Route: IVP; Site: left ap3 forearm; 14:36 Follow up: Response: No adverse reaction; Blood pressure is lowered ap3 13:36 Drug: Keppra IV 1000 mg IV at bolus once Route: IV; Rate: bolus; Site: right hand; ap3 14:35 Follow up: IV Status: Completed infusion; IV Intake: 100ml ap3 13:36 Drug: Ativan IVP 2 mg IVP once Route: IVP; Site: left forearm; ap3 14:35 Follow up: Response: No adverse reaction; Anxiety decreased ap3 14:59 Drug: Keppra IV 1000 mg IV at bolus once Route: IV; Rate: bolus; Site: right hand; ap3 15:26 Follow up: IV Status: Infusion continued upon admission ap3 Disposition Summary: 11/25/23 06:40 Hospitalization Ordered Notes: Hospitalization Status: Observation sp3 Provider: Ashwin Martin sp3 Condition: Stable sp3 Problem: an acute exacerbation sp3 Symptoms: have worsened sp3 Bed/Room Type: Standard sp3 Location: Intensive Care Unit(11/25/23 13:30) hb Room Assignment: 5-(11/25/23 13:30) hb Diagnosis - Chest pain, hypertension sp3 Forms: - Medication Reconciliation Form sp3 - SBAR form sp3 - Leadership Thank You Letter sp3 Signatures: Dispatcher [employer] EDMS Ceasar Bonilla MD MD cha Baxter, Heather RN RN Nora Jessica RN RN ap3 Radha Chung Setul, MD MD sp3 Serena Childers RN RN cm10 Peggy Black RN RN tm6 Corrections: (The following items were deleted from the chart) 09:02 06:40 Telemetry/MedSurg (observation) sp3 eb 09:02 06:40 sp3 eb 12:15 09:02 [facility] ER HOLD eb eb 12:15 09:02 ERHOLD- eb eb 13:30 12:15 Telemetry/MedSurg (observation) eb hb 13:30 12:15 232 eb hb 13:52 13:52 Arterial Blood Gas+RC.LAB.BRZ ordered. EDMS EDMS
[2023-11-25] MEDS ORDERED: PROMETHAZINE INJ 25 MG/ML AMP ONE ×2 (06:42→12:24)
[2023-11-25] MEDS ORDERED: MORPHINE 4 MG/ML SYR ONE (06:43)
--- NOTE | 2023-11-25 07:05 | P.HP ---
Certification for Inpatient Patient admitted to: Observation With expected LOS: <2 Midnights Patient will require the following post-hospital care: None Practitioner: I am a practitioner with admitting privileges, knowledge of patient current condition, hospital course, and medical plan of care. Services: Services provided to patient in accordance with Admission requirements found in Title 42 Section 412.3 of the Code of Federal Regulations Patient History Date of Service: 11/26/23 Reason for admission: Chest pain r/o CO History of Present Illness: Araceli Cooney is a 48 year old female with Pmhx CO, HTN, bipolar, anxiety/depression, and DM-NIDDM who presents to the ED with chief complaint of chest pain, diaphoresis, N/V that started at 4:40 AM that woke her from her sleep. She has a history of an CO. She reports seeing a psychiatrist for anxiety/depression, bipolar disorder, and insomnia. On evaluation, chest pain is non-reproducible, bowel sounds active, S1-S2 present, lung sounds clear bilaterally, ill appearing. Daughter at the bedside reports she has been vomiting for three weeks and uses marijuana to help ease her nausea. Her daughter states that she uses marijuana multiple times a day, and ran out of Ambien which was the only medication that she knows of where the dose had been adjusted adjusted recently Initial vitals: BP 167 / 110; Pulse 78; Resp 20; Pulse Ox 97% on R/A Laboratory evaluation troponin 20.5, BNP 144, H/H 14/42, WBC 11.9, Platelets 445, Serum glucose 184, BUN/creatinine 12/.01, GFR 68 Chest xray reports "No evidence of acute cardiopulmonary disease." EKG reports :normal sinus rhythm at 73 bpm with normal intervals, normal QRS, normal axis, nonspecific diffuse ST/T changes without evidence of acute ischemia. Araceli will be admitted to hospitalist service for further evaluation and treatment of Chest pain r/o, Dr. Hernandez consulted. Allergies No Known Allergies Allergy (Unverified 11/25/23 07:57) Home Medications: Atorvastatin Calcium [Lipitor] 20 mg PO BEDTIME 11/25/23 Fluoxetine HCl 10 mg PO DAILY 11/25/23 Lamotrigine [Lamotrigine ER] 200 mg PO BEDTIME 11/25/23 Lisinopril [Zestril] 10 mg PO DAILY 11/25/23 Lurasidone HCl 20 mg PO BEDTIME 11/25/23 Metformin ER [Glucophage ER] 500 mg PO DAILY 11/25/23 Zolpidem Tartrate [Ambien] 10 mg PO BEDTIME PRN PRN 11/25/23 cloNIDine HCL [Clonidine HCl] 0.1 mg PO TID PRN 11/25/23 - Past Medical/Surgical History Diabetic: Yes -: CO -: HTN -: anxiety/depression -: Bipolar -: GERD -: DM-NIDDM Past Surgical History: Unable to obtain - Social History CD- Drugs: Yes Review of Systems Cardiovascular: Chest Pain Gastrointestinal: Nausea, Vomiting Physical Examination - Physical Exam General: Alert, Oriented x3, Other (uncomfortable) HEENT: Atraumatic, Normocephalic, PERRLA Neck: Supple, 2+ carotid pulse no bruit, JVD not distended Respiratory: Clear to auscultation bilaterally, Normal air movement Cardiovascular: Normal pulses, Regular rate/rhythm, Normal S1 S2 Capillary refill: <2 Seconds Gastrointestinal: Normal bowel sounds, Soft and benign, Distended (obese) Musculoskeletal: No swelling Integumentary: No rashes Neurological: Normal speech, Normal tone - Studies Laboratory Data (last 24 hrs) 11/25/23 11/25/23 11/25/23 05:45 05:45 05:45 WBC 11.90 H Hgb 14.2 Hct 42.9 Plt Count 445 H PT 10.3 INR 0.93 Sodium 137 Potassium 3.5 BUN 12 Creatinine 1.01 Glucose 184 H Magnesium 1.9 Total Bilirubin 0.3 AST 14 L ALT 27 Alkaline Phosphatase 146 H Assessment and Plan - Plan Assessment and plan Chest pain r/o CO NSTEMI Respiratory acidosis -EKG: No obvious ST segment changes, trend -CXR reports -Troponin 20.5, 548.1, serial pending -ASA, statin daily -ECHO ordered -tylenol, Morphine, nitroglycerin PRN -Lipid panel, A1C, TSH/free T4 -Consult cardiology -Continuous telemetry -heparin gtt Hypertensive Emergency -monitor BP closely, slowly decrease BP -Continue home medications Hx anxiety/depression Hx Bipolar -Evaluate medication prior to restarting Hx GERD -Protonix BID -Carafate HTN - Continue home medications when appropriate DM - Accucheck with SSI -Serum glucose 184 DVT ppx SCD Full code LOS <2 days observation Discharge Plan: Home Plan to discharge in: 48 Hours - Advance Directives Does patient have a Living Will: No Does patient have a Durable POA for Healthcare: No
[2023-11-25] MEDS ORDERED: NITROGLYCERIN 0.4 MG/TAB SL PRN (07:14)
[2023-11-25] MEDS ORDERED: SODIUM CHLORIDE 0.9% 10ML INJ IV PRN (07:24)
[2023-11-25] MEDS: SUCRALFATE 1GM/10ML UCUP FT SCH (07:30)
[2023-11-25] MEDS: INSULIN REGULAR (HUMAN) 100 UNIT/ML SQ SCH (07:30)
[2023-11-25] MEDS: NA CHLORIDE 0.9% 1,000 ML IV SCH (08:00)
[2023-11-25] MEDS: PANTOPRAZOLE 40 MG INJ IVP SCH (09:00)
[2023-11-25] MEDS ORDERED: MORPHINE 2 MG/ML SYR ONE (09:20)
[2023-11-25] MEDS ORDERED: PANTOPRAZOLE 40 MG INJ ONE (09:21)
[2023-11-25] MEDS ORDERED: SUCRALFATE 1 GM TABLET ONE ×2 (09:21→12:20)
[2023-11-25] MEDS: MORPHINE 2 MG/ML SYR IV PRN (09:30)
[2023-11-25] MEDS: ONDANSETRON 4 MG/2 ML VIAL IV PRN (09:30)
--- NOTE | 2023-11-25 10:35 | RAD REPORT ---
EXAM DESCRIPTION: RAD - Chest Single View - 11/25/2023 6:01 am CLINICAL HISTORY: CHEST PAIN COMPARISON: None TECHNIQUE: Single AP view of the chest. FINDINGS: Lung volumes adequate. Cardiac silhouette is normal in size. No pneumothorax. No large pleural effusion. No focal consolidation. No acute bony finding. IMPRESSION: No evidence of acute cardiopulmonary disease. Electronically signed by: Shiraz Garcias MD 11/25/2023 06:44 AM CDT RP Z9 Due to temporary technical issues with the PACS/Fluency reporting system, reports are being signed by the in house radiologists without review as a courtesy to insure prompt reporting. The interpreting radiologist is fully responsible for the content of the report.
[2023-11-25] MEDS ORDERED: REGADENOSON 0.4 MG/5 ML SYR IV ONE (11:07)
--- NOTE | 2023-11-25 12:00 | RAD REPORT ---
EXAM DESCRIPTION: NM - Rest Stress Cardiac Imaging - 11/25/2023 11:35 am CLINICAL HISTORY: chest pain with hx OK Chest pain. COMPARISON: No comparisons TECHNIQUE: The patient was administered approximately 9.9 mCi of Tc 99m Sestamibi prior to resting S PECT imaging of the heart. The patient was then administered approximately 29.6 mCi of Tc 99m Sestami bi following exercise or pharmacologic stress. Multiplanar SPECT images were reviewed. FINDINGS: Small to moderate anterior wall mid segment reversible defect on the second set of images, concerning for a region of ischemia. Transient ischemic dilation of the left ventricle visualized navarro bjectively on the SPECT images. TID ratio is also elevated, 1.31. No definitive fixed defect is seen to suggest hibernating myocardium or scarred myocardium. Lateral wall basal segment defect appreciate d on the rest images only, likely artifactual, related to splanchnic uptake. The end diastolic volume is 80 ml, the end systolic volume is 34 ml, and the ejection fraction is 58 %. IMPRESSION: Small to moderate region of ischemia along the anterior wall mid segment. Transient ischemic dilation of the left ventricle, suggesting balanced coronary artery disease. Left ventricular ejection fraction is within normal, 58%.
[2023-11-25] MEDS: PROMETHAZINE INJ 25 MG/ML AMP IV ONE (12:41)
[2023-11-25 13:12] LABS: Barbiturates NEGATIVE (NEGATIVE); Benzodiazepines NEGATIVE (NEGATIVE); Cocaine NEGATIVE (NEGATIVE); METHAMPHETAM NEGATIVE (NEGATIVE); Methadone NEGATIVE (NEGATIVE); Opiates POSITIVE (NEGATIVE); Phencyclidine NEGATIVE (NEGATIVE); THC Cannibis POSITIVE (NEGATIVE)
[2023-11-25] MEDS ORDERED: METOPROLOL TARTRATE 5 MG/5 ML INJ IV ONE (13:26)
[2023-11-25] MEDS ORDERED: LEVETIRACETAM 500 MG/5 ML VIAL IV ONE ×2 (13:29→14:50)
[2023-11-25] MEDS ORDERED: LORazepam 2 MG/ML VIAL ONE (13:29)
[2023-11-25] MEDS ORDERED: NA CHLORIDE 0.9% 100 ML ONE ×2 (13:30→14:50)
--- NOTE | 2023-11-25 14:11 | RAD REPORT ---
EXAM DESCRIPTION: CT - Head Brain Wo Cont - 11/25/2023 1:55 pm CLINICAL HISTORY: Confusion COMPARISON: none TECHNIQUE: Computed axial tomography of the head was obtained. IV contrast was not requested. All CT scans are performed using dose optimization technique as appropriate and may include automated exposure control or mA/KV adjustment according to patient size. FINDINGS: An intracranial bleed is not seen The ventricles are normal in caliber No significant hypodense areas within the brain visualized No extra-axial fluid collection is noted. Fluid within the sinuses/ mastoids is not seen IMPRESSION: No acute intracranial abnormality is seen If patient's symptoms persist MRI of the brain would be recommended
[2023-11-25 14:15] LABS: Absolute Lymphocytes (CBC) 3.4 K/uL (0.7-4.9); Absolute Monocytes 0.9 K/uL (0.1-1.3); Absolute Neutrophil 14.5 K/uL (1.8-8.0); Basophils % 0.2 % (0-1.3); Eosinophils % 0.1 % (0-4.4); Hematocrit 49.4 % (36.0-45.0); Hemoglobin 15.7 g/dL (12.0-15.0); MCH 32.3 pg (27.0-35.0); MCHC 31.7 g/dL (32.0-36.0); MCV 101.7 fL (80-100); MPV 8.2 fL (7.6-11.3); Monocytes % 4.5 % (3.3-12.3); Neutrophils % 77.2 % (41.7-73.7); Platelets 512 thou/uL (152-406); RBC Red Blood Cell Count 4.86 M/uL (3.86-4.86); Red Cell Distribution Width 13.6 % (12.1-15.2)
[2023-11-25 14:29] LABS: Albumin 4.9 g/dL (3.4-5.0); Bilirubin Total 0.6 mg/dL (0.2-1.0); Globulin 4.8 g/dL (2.3-3.5); Magnesium 2.2 mg/dL (1.6-2.4); Phosphorus 4.1 mg/dL (2.5-4.9); Protein, Total 9.7 g/dL (6.4-8.2)
[2023-11-25 14:33] LABS: Troponin High Sensitivity 548.1 pg/mL (<58.9)
--- NOTE | 2023-11-25 15:40 | EKG ---
Test Date: 2023-11-25 Test Time: 06:37:59 Rigging Supervisor: [place] MEASUREMENT RESULTS: Intervals: Rate: 72 SC: 102 QRSD: 88 QT: 436 QTc: 477 [place]: P: 60 SC: 102 QRS: 52 T: 132 INTERPRETIVE STATEMENTS: Sinus rhythm with sinus arrhythmia with short SC Nonspecific T wave abnormality Prolonged QT Abnormal ECG Compared to ECG 11/02/2010 02:31:35 Short SC interval now present T-wave abnormality now present Prolonged QT interval now present Electronically Signed On 11-25-23 15:39:34 CDT by Sim Hernandez
--- NOTE | 2023-11-25 15:41 | EKG ---
Test Date: 2023-11-25 Test Time: 05:44:31 Vocational Technical Education Director: [place] MEASUREMENT RESULTS: Intervals: Rate: 73 HI: 124 QRSD: 90 QT: 436 QTc: 480 [place]: P: 42 HI: 124 QRS: 49 T: 89 INTERPRETIVE STATEMENTS: Normal sinus rhythm with sinus arrhythmia Nonspecific T wave abnormality Abnormal ECG Compared to ECG 11/02/2010 02:31:35 T-wave abnormality now present Electronically Signed On 11-25-23 15:40:12 CDT by Sim Hernandez
[2023-11-25 15:58] LABS: Blood Gas Oxyhemoglobin 96.9 % (94-97); Blood Gas THB 15.5 g/dl (12-18); Blood O2 Saturation 98.5 % (92-98.5)
[2023-11-25 15:59] LABS: Thyroid Stimulating Hormone 7.23 uIU/mL (0.358-3.740)
--- NOTE | 2023-11-25 16:24 | P.CNS ---
Date of Consult: 11/25/23 Chief Complaint: Chest pain r/o NM History of Present Illness: Patient with PMH of HTN, DM, Bipolar disorder presented with chest pain, nausea and vomiting started last night, patient had a stress test done and later she started having seizure like activity with AMS, code blue was activated, patient was hardly responsive, never lost pulse and she was tachycardiac, hypertensive, labs done and shows severe metabolic acidosis so she was admitted to ICU. Allergies No Known Allergies Allergy (Unverified 11/25/23 07:57) Home Medications: Atorvastatin Calcium [Lipitor] 20 mg PO BEDTIME 11/25/23 Fluoxetine HCl 10 mg PO DAILY 11/25/23 Lamotrigine [Lamotrigine ER] 200 mg PO BEDTIME 11/25/23 Lisinopril [Zestril] 10 mg PO DAILY 11/25/23 Lurasidone HCl 20 mg PO BEDTIME 11/25/23 Metformin ER [Glucophage ER] 500 mg PO DAILY 11/25/23 Zolpidem Tartrate [Ambien] 10 mg PO BEDTIME PRN PRN 11/25/23 cloNIDine HCL [Clonidine HCl] 0.1 mg PO TID PRN 11/25/23 Review of Systems 10-point ROS is otherwise unremarkable Physical Examination Temp Pulse Resp BP Pulse Ox 99.7 F 105 H 18 134/88 94 11/25/23 13:23 11/25/23 14:26 11/25/23 13:23 11/25/23 14:26 11/25/23 12:00 General: Moderate distress, Obese HEENT: Atraumatic Neck: Supple Respiratory: Clear to auscultation bilaterally Cardiovascular: No edema, Normal S1 S2 Gastrointestinal: Normal bowel sounds Laboratory Data (last 24 hrs) 11/25/23 11/25/23 11/25/23 05:45 05:45 05:45 WBC 11.90 H Hgb 14.2 Hct 42.9 Plt Count 445 H PT 10.3 INR 0.93 Sodium 137 Potassium 3.5 BUN 12 Creatinine 1.01 Glucose 184 H Magnesium 1.9 Total Bilirubin 0.3 AST 14 L ALT 27 Alkaline Phosphatase 146 H - Problems (1) NSTEMI (non-ST elevated myocardial infarction) Current Visit: Yes Status: Acute Plan: patient presented with nausea and vomiting and chest pressure, Troponin trended up then coming down, echo is normal but abnormal stress test in LAD territory. ASA 81 mg daily Lipitor 40 mg daily Heparin drip ACS protocol. laborer laboratory Tuesday or tuesday. (2) Hypertensive emergency Current Visit: Yes Status: Acute Plan: patient BP is better, start lopressor 25 mg po BID continue Linsiopril 10 mg daily D/C clonidine.
--- NOTE | 2023-11-25 16:30 | P.CNS ---
Date of Consult: 11/25/23 Reason for Consult: Metab acidosis, hypokalemia, raised serum cr Requesting Physician: Ashwin Martin Chief Complaint: Chest pain r/o AR History of Present Illness: Pt is a 48 year old female with some reported chronic medical conditions including DM and HTN who apparently presented to the ED with chief complaint of chest pain, unspecified that reportedly woke her from her sleep. She reportedly has some underlying chronic conditions including anxiety/depression, bipolar disorder, and insomnia. Initial troponin level was neg but acutely upward shanice after an earlier event this afternoon which led to a code blue and ACS protocol being briefly initiated. I do not have the full details of this event so pls refer to any ACS event documentation from the primary team. Pt now seen in the ICU post MRI of the brain where she is mildly agitated and continues to insist on wanting to pee and attempting to get out of bed despite having a bladder catheter in. Pt not following instructions and getting verbally abusive. Allergies No Known Allergies Allergy (Unverified 11/25/23 07:57) - Past Medical/Surgical History -: As mentioned in the HPI Past Surgical History: Unable to obtain - Social History Smoking Status: Unknown if ever smoked Review of Systems is unable to be obtained Physical Examination Temp Pulse Resp BP Pulse Ox 99.7 F 105 H 18 134/88 94 11/25/23 13:23 11/25/23 14:26 11/25/23 13:23 11/25/23 14:26 11/25/23 12:00 General: Other (NAD but not cooperating and trying to stand up and get out of bed) HEENT: Atraumatic, Normocephalic, Other (LFNC) Neck: Supple Respiratory: Normal air movement, Other (No wheezes or rhonchi) Cardiovascular: No edema, Regular rate/rhythm Gastrointestinal: Soft and benign, Non-distended, Other ([place] present) Musculoskeletal: No swelling, No contractures Integumentary: No rashes Neurological: Normal speech, Normal tone, Other (Able to stand on her own, no tremors or myoclonus) Laboratory Data (last 24 hrs) 11/25/23 11/25/23 11/25/23 05:45 05:45 05:45 WBC 11.90 H Hgb 14.2 Hct 42.9 Plt Count 445 H PT 10.3 INR 0.93 Sodium 137 Potassium 3.5 BUN 12 Creatinine 1.01 Glucose 184 H Magnesium 1.9 Total Bilirubin 0.3 AST 14 L ALT 27 Alkaline Phosphatase 146 H Conclusions/Impression: A/P) 1. Serum Cr raised above reference range -repeat labs show mild rise in levels, likely related to hemodynamic factors from the cardiopulmonary event, unclear if true arrest. F/u repeat labs. Pt's huddleston catheter bag shows plenty of urine. 2. Acute metabolic acidosis with AG on repeat labs post event. pH on blood gas shows mixed metab and resp acidosis. LA pending. Likely again all related to the acute events as initial chem panel showed no bicarb deficit or gap. Will place on some gentle bicarb containing IVF x 1L. 3. Labile BP, reports of underlying HTN, monitor BP range closely. 4. Elevated troponin on repeat testing. Chest pain unspecified. Abnormal stress test earlier, f/u Cardiology reccs Napoleon Recio MD, DOUGIE
[2023-11-25] MEDS: POTASSIUM CL IV SCH (17:00)
[2023-11-25] MEDS: NACHLORIDE 0.45% IV SCH (17:00)
[2023-11-25] MEDS: NA BICARB IV SCH (17:00)
--- NOTE | 2023-11-25 17:08 | RAD REPORT ---
EXAM DESCRIPTION: MRI - Brain Wo Cont - 11/25/2023 4:30 pm CLINICAL HISTORY: Seizure COMPARISON: Head CT November 25, 2023 TECHNIQUE: Axial, sagittal, and coronal magnetic resonance images of the brain were obtained. FINDINGS: Some of the images are degraded by patient motion artifact No significant abnormal signal within the brain is seen. Hippocampal gyri are normal caliber signal Diffusion-weighted/ADC mapping does not reveal evidence of acute infarction. The ventricles are normal caliber. An extra-axial fluid collection is not noted. Fluid within the sinuses/mastoids is not seen IMPRESSION: No acute intracranial abnormality noted
[2023-11-25 17:53] LABS: Arterial Blood Carboxyhemoglob 0.6 % (0-1.5); Blood Gas THB 15.3 g/dl (12-18); Blood O2 Saturation 94.7 % (92-98.5)
[2023-11-25] MEDS: HEPARIN/D5W 25,000 UNIT/500 ML BAG IV SCH (18:41)
[2023-11-25] MEDS: POTASSIUM CL SA 10 MEQ TAB PO ONE (18:42)
[2023-11-25] MEDS: HYDRALAZINE HCL 20 MG/ML VIAL IV PRN (18:44)
[2023-11-25] MEDS: ACETAMINOPHEN 500 MG TAB PO PRN (18:45)
[2023-11-25 18:51] LABS: Albumin 4.1 g/dL (3.4-5.0); Albumin/Globulin Ratio 0.9 (1.1-1.8); Bilirubin Total 0.4 mg/dL (0.2-1.0); Globulin 4.4 g/dL (2.3-3.5); Magnesium 2.5 mg/dL (1.6-2.4); Protein, Total 8.5 g/dL (6.4-8.2)
[2023-11-25] MEDS: ATORVASTATIN 40 MG TAB PO SCH (21:37)
[2023-11-25] MEDS: levETIRAcetam 500 MG in NA CHLORIDE 0.9% 100 ML IV SCH (21:37)
--- NOTE | 2023-11-25 21:58 | P.PN ---
Date of Service: 11/25/23 Please see H&P for further detail. Briefly, pt presented to ED due to nausea/vomiting and chest pain. H/o bipolar II, HTN, prior SC per report. Initial trop and EKG normal / without acute findings. Given history and presentation, cardiology was consulted and patient underwent stress testing today which noted mild-mod anterior wall mid segment reversible ischemia. Initial plan was for cardiac cath if time. After stress test, patient was still nauseated. received phenergan x1 ~noon, after receiving zofran earlier in morning. BP was 150-170/90s and one reading noted to be 200/100, but improved prior to administering any medication. She ambulated to wheelchair to be moved up to bed on 2nd floor, however ~50ft down the hallway in ED, she was noted to suddenly become unresponsive with head deviation to one side and appearance of seizure activity She was then noted to be cyanotic and not breathing, with weak pulse. She was wheeled back to ER room and daisy chamberlain was called. Patient did not lose pulse, was noted to be in sinus tachycardia, severe hypertension, and unresponsive. EKG obtained without ST elevations. Dr. Hernandez arrived to bedside and agreed this was not consistent with STEMI, and most consistent with seizure. Patient does not have h/o seizure activity. Family report significant psychiatric history for the patient. No changes in her psych medications in >6 months. She was started on ambien ~4-6 months ago, ran out a few days ago - takes for insomnia. She has been nauseous for most of the day, most days in last ~2-3 weeks. Vomited each day. Nothing alleviates symptoms unclear etiology of this episode. Given h/o psych meds and received phenergan - possibly all lowering seizure threshold. Daughter provided history for me Patient underwent CT head without acute findings after code resolved. Loaded with keppra and ativan had improvemement of mentation and vitals neuro consulted, recommende keppra repeat labs ordered for 5pm ABG with acidosis and low bicarb ICU level of are Cardio on board - recommended heparin drip for now
[2023-11-25 23:27] LABS: Specific Gravity 1.008 (1.005-1.030); Sqamous Epithelial <5 /HPF (None Seen); Urine Bacteria <20 /HPF (<20); Urine Bilirubin NEGATIVE (Negative); Urine Blood 2+ (Negative); Urine Clarity Turbid (Clear); Urine Color Colorless (Yellow); Urine Culture Reflex Order NOT NEEDED; Urine Glucose NEGATIVE (Negative); Urine Ketones NEGATIVE (Negative); Urine Microscopic Reflex YN ORDER UMIC; Urine Mucus Slight /HPF (None Seen); Urine Nitrite NEGATIVE (Negative); Urine Protein TRACE (Negative); Urine RBC <5 /HPF (None Seen); Urine Urobilinogen Normal (Normal); Urine WBC <5 /HPF (<5); Urine pH 6.5 (5.0-7.0)
[2023-11-26] MEDS: cloNIDine HCL 0.1 MG TAB PO PRN (00:35)
[2023-11-26 04:55] LABS: Absolute Basophils 0.1 K/uL (0-0.5); Absolute Lymphocytes (CBC) 2.6 K/uL (0.7-4.9); Absolute Monocytes 0.8 K/uL (0.1-1.3); Absolute Neutrophil 10.6 K/uL (1.8-8.0); Basophils % 0.6 % (0-1.3); Eosinophils % 0.1 % (0-4.4); Hemoglobin 14.4 g/dL (12.0-15.0); Lymphocytes % 18.2 % (15.3-44.8); MCH 32.7 pg (27.0-35.0); MCHC 33.4 g/dL (32.0-36.0); MCV 97.8 fL (80-100); MPV 7.3 fL (7.6-11.3); Neutrophils % 75.1 % (41.7-73.7); Nucleated RBC Absolute Count 0.1 (0-0); Nucleated Red Blood Cells % 0.4 % (0-0); Platelets 454 thou/uL (152-406); RBC Red Blood Cell Count 4.39 M/uL (3.86-4.86); Red Cell Distribution Width 13.1 % (12.1-15.2)
[2023-11-26 05:19] LABS: Anion Gap 9.8 mEq/L (5.0-15.0); Magnesium 2.4 mg/dL (1.6-2.4); Phosphorus 3.1 mg/dL (2.5-4.9); Potassium 3.8 mEq/L (3.5-5.1)
[2023-11-26] MEDS: lisinopriL 10 MG TAB PO SCH (08:30)
[2023-11-26] MEDS: ASPIRIN EC 81 MG TAB PO SCH (08:31)
[2023-11-26] MEDS: FLUOXETINE 10 MG CAP PO SCH (08:31)
[2023-11-26 09:22] VITALS: BMI 44.7
--- NOTE | 2023-11-26 10:49 | RAD REPORT ---
EXAM DESCRIPTION: RAD - Chest Single View - 11/26/2023 10:31 am CLINICAL HISTORY: SOB COMPARISON: Chest Single View dated 11/25/2023; ABDOMEN ACUTE SERIES dated 11/02/2010 FINDINGS: Lines: None. Lungs: No evidence of edema or pneumonia. Pleural: No significant pleural effusions or pneumothorax. Cardiac: The heart size is within normal limits. Mediastinum: Within normal limits. Bones: No acute fractures. Other: None IMPRESSION: No acute cardiopulmonary disease.
[2023-11-26] MEDS: METOPROLOL TAR 25 MG TAB PO ONE (11:00)
[2023-11-26] MEDS ORDERED: MORPHINE 4 MG/ML SYR IV PRN (15:43)
[2023-11-26] MEDS: METOPROLOL TAR 25 MG TAB PO SCH (17:29)
--- NOTE | 2023-11-26 19:41 | P.PN ---
Date of Service: 11/26/23 Subjective Feeling better this morning No acute events overnight Reports having moments of eye twitching that caused her mind to draw a blank of her current activity which has started 1 week ago Daughter reports Araceli is the is under a lot of stress. ROS 10 point ROS as noted above, otherwise negative Physical Exam General: AAOx3, NAD, comfortable HEENT: Atraumatic, Normocephalic, PERRLA Neck: Supple, 2+ carotid pulse no bruit, JVD not distended Respiratory: Clear to auscultation bilaterally, Normal air movement Cardiovascular: Normal pulses, RRR, Normal S1 S2 Capillary refill: <2 Seconds Gastrointestinal: Normal bowel sounds, Soft and benign, Distended (obese) Musculoskeletal: No swelling Integumentary: No rashes Neurological: Normal speech, Normal tone Vitals Reviewed Problem list Chest pain r/o [place] NSTEMI Respiratory Acidosis Suspected seizure activity Hypertensive Emergency Hx anxiety/depression Hx Bipolar Hx GERD HTN DM Assessment and Plan Chest pain r/o [place] NSTEMI Respiratory Acidosis -EKG: No obvious ST segment changes -Initial CXR reports "No evidence of acute cardiopulmonary disease", 11/25 CXR "No acute cardiopulmonary disease." -11/24 ABG PH 7.07, pCO2 44.9, pO2 501 (bag mask)HCO3 12.4 (1436), Repeat 11/24 PH 7.36, pCO2 46.1, pO2 78.6, HCO3 24.1 (172) -Troponin 20.5, 548.1, 942, 532 -ASA, statin daily -ECHO ordered -tylenol, Morphine, nitroglycerin PRN -Lipid panel (triglyceride 153, cholesterol 165, LDL 60, HDL 74), A1C 5.9, TSH/free T4 7.230/0.89 -Dr. Hernandez-metoprolol added -Continuous telemetry in ICU -heparin gtt -Heart cath next week -Nuclear medicine stress test reports "Small to moderate region of ischemia along the anterior wall mid segment. Transient ischemic dilation of the left ventricle, suggesting balanced coronary artery disease. Left ventricular ejection fraction is within normal, 58%" Suspected seizure activity CT head reports "No acute intracranial abnormality is seen" Brain MRI reports " No acute intracranial abnormality noted" Dr. Hinojosa consulted Keppra IV twice daily Hypertensive Emergency -monitor BP closely, slowly decrease BP -Continue home medications Hx anxiety/depression Hx Bipolar -continue home medications Hx GERD -Protonix BID -Carafate HTN - Continue home medications when appropriate DM - Accucheck with SSI -Serum glucose 140 DVT ppx SCD Full code LOS <2 days observation Discharge Plan: Home <Jodi Jara - Last Filed: 11/26/23 19:23> Patient seen and examined on rounds this morning with QUARTER SUPERVISOR Marek. I performed a substantial part of the MDM during this patient's care today as noted above in the plan of care. I agree with plan of care as noted above with the following additions / corrections: patient most likely had new seizure HTN was after seizure episode, accompanied by sinus tachycardia, post-ictal state, which would be most consistent with seizure continue keppra continue heparin drip cardio to re-eval, considering coronary angio <Ashwin Martin - Last Filed: 11/26/23 20:38>
[2023-11-26] MEDS ORDERED: LAMOTRIGINE 200 MG PO SCH (21:00)
[2023-11-26] MEDS ORDERED: LURASIDONE HCL 20 MG PO SCH (21:00)
[2023-11-27 05:39] LABS: Anion Gap 9.5 mEq/L (5.0-15.0); Magnesium 2.3 mg/dL (1.6-2.4); Phosphorus 3.2 mg/dL (2.5-4.9); Potassium 3.5 mEq/L (3.5-5.1)
[2023-11-27 06:33] LABS: Absolute Lymphocytes (CBC) 2.5 K/uL (0.7-4.9); Absolute Monocytes 0.5 K/uL (0.1-1.3); Basophils % 0.5 % (0-1.3); Eosinophils % 0.4 % (0-4.4); Hematocrit 39.4 % (36.0-45.0); Hemoglobin 13.2 g/dL (12.0-15.0); Lymphocytes % 27.2 % (15.3-44.8); MCH 32.7 pg (27.0-35.0); MCHC 33.6 g/dL (32.0-36.0); MCV 97.4 fL (80-100); MPV 7.9 fL (7.6-11.3); Monocytes % 5.8 % (3.3-12.3); Neutrophils % 66.1 % (41.7-73.7); Platelets 378 thou/uL (152-406); RBC Red Blood Cell Count 4.05 M/uL (3.86-4.86)
[2023-11-27] MEDS: POTASSIUM CL SA 10 MEQ TAB PO ONE (08:54)
--- NOTE | 2023-11-27 12:52 | P.PN ---
Subjective Date of Service: 11/27/23 Chief Complaint: Chest pain r/o [place] Subjective: No new changes, No C/O voiced, Tolerating diet, Ambulating, Improving Review of Systems 10-point ROS is otherwise unremarkable Physical Examination - Vital Signs Temperature: 97.5 F Blood Pressure: 142/94 Pulse: 81 Respirations: 14 Pulse Ox (%): 94 - Physical Exam General: Alert, In no apparent distress HEENT: Atraumatic, PERRLA, EOMI Neck: Supple, JVD not distended Respiratory: Clear to auscultation bilaterally, Normal air movement Cardiovascular: Regular rate/rhythm, Normal S1 S2 Gastrointestinal: Normal bowel sounds, No tenderness Musculoskeletal: No tenderness Integumentary: No rashes Neurological: Normal speech, Normal tone, Normal affect Lymphatics: No axilla or inguinal lymphadenopathy - Studies Medications List Reviewed: Yes Assessment And Plan - Current Problems (Diagnosis) (1) NSTEMI (non-ST elevated myocardial infarction) Current Visit: Yes Status: Acute Plan: patient presented with nausea and vomiting and chest pressure, Troponin trended up then coming down, echo is normal but abnormal stress test in LAD territory. ASA 81 mg daily Lipitor 40 mg daily Heparin drip ACS protocol. labor relations specialist Tuesday or tuesday. (KEEP NPO after midnight, as might be able to do her coronary angiogram in am). (2) Hypertensive emergency Current Visit: Yes Status: Acute Plan: patient BP is better, lopressor 25 mg po BID continue Linsiopril 10 mg daily D/C clonidine.
--- NOTE | 2023-11-27 15:52 | P.PN ---
Date of Service: 11/27/23 Subjective Again no new complaints this morning Reports getting out of bed yesterday and feeling okay Presents to the floor today ROS 10 point ROS as noted above, otherwise negative Physical Exam General: AAOx3, no acute distress, comfortable HEENT: Atraumatic, Normocephalic, PERRLA Neck: Supple, 2+ carotid pulse no bruit, JVD not distended Respiratory: Clear to auscultation bilaterally, symmetrical chest wall movement, on room air Cardiovascular: Normal pulses, RRR, Normal S1 S2 Capillary refill: <2 Seconds Gastrointestinal: Normal bowel sounds, Soft and benign on palpation, Distended (obese) Musculoskeletal: No swelling Integumentary: No rashes Neurological: Normal speech, Normal tone Vitals Reviewed Problem list Chest pain r/o [place] NSTEMI Respiratory Acidosis Suspected seizure activity Hypertensive Emergency Hx anxiety/depression Hx Bipolar Hx GERD HTN Diabetes mellitusNIDDM Assessment and Plan Chest pain r/o [place] NSTEMI Respiratory Acidosis -EKG: No obvious ST segment changes -Initial CXR reports "No evidence of acute cardiopulmonary disease", 11/25 CXR "No acute cardiopulmonary disease." -11/24 ABG PH 7.07, pCO2 44.9, pO2 501 (bag mask)HCO3 12.4 (1436), Repeat 11/24 PH 7.36, pCO2 46.1, pO2 78.6, HCO3 24.1 (172) -Troponin 20.5, 548.1, 942, 532 -ASA, statin daily -ECHO ordered -tylenol, Morphine, nitroglycerin PRN -Lipid panel (triglyceride 153, cholesterol 165, LDL 60, HDL 74), A1C 5.9, TSH/free T4 7.230/0.89 -Dr. Hernandez-metoprolol added, plan for Heart Cath Tuesday or Tuesday, NPO at midnight -Continuous telemetry, transfer to the Floor (11/26) -heparin gtt -Nuclear medicine stress test reports "Small to moderate region of ischemia along the anterior wall mid segment. Transient ischemic dilation of the left ventricle, suggesting balanced coronary artery disease. Left ventricular ejection fraction is within normal, 58%" Suspected seizure activity -CT head reports "No acute intracranial abnormality is seen" -Brain MRI reports " No acute intracranial abnormality noted" -Dr. Hinojosa consulted -Keppra IV twice daily Hypertensive Emergency -monitor BP closely, slowly decrease BP -Continue home medications Hx anxiety/depression Hx Bipolar -continue home medications Hx GERD -Protonix BID -Carafate HTN - Continue home medications Diabetes mellitusNIDDM - Accucheck with SSI -Serum glucose 142 DVT ppx heparin gtt Full code LOS <2 days observation Discharge Plan: Home
[2023-11-28 06:05] LABS: Absolute Basophils 0.1 K/uL (0-0.5); Absolute Eosinophils 0.1 K/uL (0-0.5); Absolute Lymphocytes (CBC) 2.7 K/uL (0.7-4.9); Absolute Monocytes 0.6 K/uL (0.1-1.3); Absolute Neutrophil 5.9 K/uL (1.8-8.0); Basophils % 1.3 % (0-1.3); Eosinophils % 1.3 % (0-4.4); Hematocrit 39.5 % (36.0-45.0); Hemoglobin 13.2 g/dL (12.0-15.0); Lymphocytes % 28.8 % (15.3-44.8); MCHC 33.4 g/dL (32.0-36.0); MCV 98.6 fL (80-100); MPV 7.2 fL (7.6-11.3); Monocytes % 6.4 % (3.3-12.3); Neutrophils % 62.2 % (41.7-73.7); Nucleated Red Blood Cells % 0.1 % (0-0); Platelets 349 thou/uL (152-406); RBC Red Blood Cell Count 4.01 M/uL (3.86-4.86)
[2023-11-28 06:27] LABS: Magnesium 2.1 mg/dL (1.6-2.4); Phosphorus 4.1 mg/dL (2.5-4.9)
[2023-11-28] MEDS ORDERED: LIDOCAINE 1% 20 ML MDV ONE (09:28)
[2023-11-28] MEDS ORDERED: HEPA 1000U/500MLS 2,000 UNIT/1,000 ML BAG IV ONE (09:28)
[2023-11-28] MEDS ORDERED: FENTANYL CITR 100 MCG/2 ML ONE (09:29)
[2023-11-28] MEDS ORDERED: ATROPINE SULF 1 MG/10 ML SYR IV ONE (09:29)
[2023-11-28] MEDS ORDERED: MIDAZOLAM HCL 2 MG/2 ML INJ ONE (09:29)
[2023-11-28] MEDS ORDERED: NA CHLORIDE 0.9% 500 ML ONE (09:30)
[2023-11-28] MEDS ORDERED: TICAGRELOR 90 MG TABLET PO ONE (09:30)
[2023-11-28] MEDS ORDERED: HEPARIN 5000 UNIT/ML 1 ML VIAL ONE (09:30)
[2023-11-28] MEDS ORDERED: HEPARIN 10,000 UNIT/10 ML VIAL IV ONE (09:30)
[2023-11-28] MEDS ORDERED: ASPIRIN 325 MG TAB ONE (09:31)
[2023-11-28] MEDS ORDERED: CLOPIDOGREL 75 MG TABLET ONE (09:31)
--- NOTE | 2023-11-28 10:59 | P.PN ---
Date of Service: 11/28/23 Subjective Awake with no new complaints headed for a heart cath no anxiety noted ROS 10 point ROS as noted above, otherwise negative Physical Exam General: Alert and oriented x3, comfortable HEENT: Atraumatic, Normocephalic, PERRLA Neck: Supple, 2+ carotid pulse no bruit, JVD not distended Respiratory: Clear to auscultation bilaterally, symmetrical chest wall movement, on room air Cardiovascular: Normal pulses, RRR, Normal S1 S2 present, no murmur noted Capillary refill: <2 Seconds Gastrointestinal: Normal active bowel sounds, Soft and benign on palpation, Distended (obese) Musculoskeletal: No swelling Integumentary: No rashes Neurological: Normal speech, Normal tone Vitals Reviewed Problem list Chest pain r/o [place] NSTEMI Respiratory Acidosis Suspected seizure activity Hypertensive Emergency Hx anxiety/depression Hx Bipolar Hx GERD HTN Diabetes mellitusNIDDM Assessment and Plan Chest pain r/o [place] NSTEMI Respiratory Acidosis- resolved -EKG: No obvious ST segment changes -Initial CXR reports "No evidence of acute cardiopulmonary disease", 11/25 CXR "No acute cardiopulmonary disease." -11/24 ABG PH 7.07, pCO2 44.9, pO2 501 (bag mask)HCO3 12.4 (1436), Repeat 11/24 PH 7.36, pCO2 46.1, pO2 78.6, HCO3 24.1 (172) -Troponin 20.5, 548.1, 942, 532 -ASA, statin daily -ECHO ordered -tylenol, Morphine, nitroglycerin PRN -Lipid panel (triglyceride 153, cholesterol 165, LDL 60, HDL 74), A1C 5.9, TSH/f ree T4 7.230/0.89 -Continuous telemetry, transfer to the Floor (11/26) -heparin gtt -Nuclear medicine stress test reports "Small to moderate region of ischemia along the anterior wall mid segment. Transient ischemic dilation of the left ventricle, suggesting balanced coronary artery disease. Left ventricular ejection fraction is within normal, 58%" -Dr. Hernandez-metoprolol added, Heart cath today Suspected seizure activity -CT head reports "No acute intracranial abnormality is seen" -Brain MRI reports " No acute intracranial abnormality noted" -Dr. Hinojosa consulted -Keppra IV twice daily Hypertensive Emergency- resolved -BP 144/72 -Continue home medications Hx anxiety/depression Hx Bipolar -continue home medications Hx GERD -Protonix BID -Carafate HTN - Continue home medications Diabetes mellitusNIDDM - Accucheck with SSI -Serum glucose 122 DVT ppx stopped heparin gtt, heparin SQ start in the AM Full code LOS discharge in the AM Discharge Plan: Home
--- NOTE | 2023-11-28 11:12 | OP ---
Date of Procedure: 11/28/2023 Surgeon: Sim Hernandez Procedures Performed: 1.Left heart catheterization. 2.Selective coronary angiogram. Indication For Procedure: Abnormal stress test and [id number] CO. Complications: None. Sedation Time: 20 minutes with 1 of Versed and 50 of fentanyl. Access: Right radial, closed by TR band. Estimated Blood Loss: Less than 50 cc. Description Of Procedure: After risks, benefits, and alternatives were explained to the patient, the patient agreed to proceed with the procedure and signed informed consent. The patient was brought b [facility] to the microbiological lab technician, and prepped and draped in sterile fashion. Time-out was performed. Sedation wa s administered. Right radial accessed. Ultrasound-guided micropuncture technique was used. 6-Frenc h sheath was inserted. Then, we inserted a Colrain 4 catheter over J-wire down to the LV cavity. LVED P was obtained. Pullback did not show any gradient. Same catheter was used for selective coronary a ngiogram of the left and right coronary system. At the end of procedure, the catheter was removed ov er a J-wire. TR band was applied after sheath removal. The patient was moved back to recovery in st able condition. Findings: 1.Left main: Normal. 2.LAD: Normal. 3.Left circumflex: Normal. 4.RCA: Normal. 5.LVEDP: 6 mmHg. Assessment And Plan: 1.Normal coronaries. 2.Normal filling pressures. The plan will be to continue medical management. CHANDANA Voice ID: [id number] Report ID: [id number]
--- NOTE | 2023-11-28 11:52 | P.PN ---
Subjective Date of Service: 11/28/23 Chief Complaint: Chest pain r/o [place] Subjective: No new changes, No C/O voiced, Tolerating diet, Ambulating, Improving Review of Systems 10-point ROS is otherwise unremarkable Physical Examination - Vital Signs Temperature: 97.5 F Blood Pressure: 125/69 Pulse: 87 Respirations: 16 Pulse Ox (%): 93 - Physical Exam General: Alert, In no apparent distress HEENT: Atraumatic, PERRLA, EOMI Neck: Supple, JVD not distended Respiratory: Clear to auscultation bilaterally, Normal air movement Cardiovascular: Regular rate/rhythm, Normal S1 S2 Gastrointestinal: Normal bowel sounds, No tenderness Musculoskeletal: No tenderness Integumentary: No rashes Neurological: Normal speech, Normal tone, Normal affect Lymphatics: No axilla or inguinal lymphadenopathy - Studies Medications List Reviewed: Yes Assessment And Plan - Current Problems (Diagnosis) (1) NSTEMI (non-ST elevated myocardial infarction) Current Visit: Yes Status: Acute Plan: patient presented with nausea and vomiting and chest pressure, Troponin trended up then coming down, echo is normal but abnormal stress test in LAD territory that was followed by coronary angiogram that shown normal coronaries. TYPE 2 MS ASA 81 mg daily Lipitor 40 mg daily D/C Heparin drip (2) Hypertensive emergency Current Visit: Yes Status: Acute Plan: patient BP is better, lopressor 25 mg po BID continue Linsiopril 10 mg daily D/C clonidine.
[2023-11-29 06:44] LABS: Absolute Basophils 0.1 K/uL (0-0.5); Absolute Eosinophils 0.2 K/uL (0-0.5); Absolute Lymphocytes (CBC) 2.2 K/uL (0.7-4.9); Absolute Monocytes 0.6 K/uL (0.1-1.3); Absolute Neutrophil 5.6 K/uL (1.8-8.0); Basophils % 0.9 % (0-1.3); Eosinophils % 2.3 % (0-4.4); Hematocrit 39.6 % (36.0-45.0); Hemoglobin 13.4 g/dL (12.0-15.0); Lymphocytes % 25.4 % (15.3-44.8); MCHC 33.8 g/dL (32.0-36.0); MCV 97.6 fL (80-100); MPV 7.1 fL (7.6-11.3); Monocytes % 7.2 % (3.3-12.3); Neutrophils % 64.2 % (41.7-73.7); Platelets 331 thou/uL (152-406); RBC Red Blood Cell Count 4.06 M/uL (3.86-4.86)
[2023-11-29 06:59] LABS: Anion Gap 10.2 mEq/L (5.0-15.0); Magnesium 1.9 mg/dL (1.6-2.4); Phosphorus 4.5 mg/dL (2.5-4.9); Potassium 4.2 mEq/L (3.5-5.1)
--- NOTE | 2023-11-29 07:05 | ECHO ---
HEIGHT: 4 ft 11 in WEIGHT: 221 lb 8 oz DATE OF STUDY: 11/25/[address]: Jodi Jara NP 2-DIMENSIONAL: YES M.MODE: YES DOPPLER: YES COLOR FLOW: YES TDS: PORTABLE: YES DEFINITY: BUBBLE STUDY: DIAGNOSIS: CHEST PAIN WITH HISTORY OF MYOCARDIAL INFARCTION CARDIAC HISTORY: CATHERIZATION: NO SURGERY: NO PROSTHETIC VALVE: NO PACEMAKER: NO MEASUREMENTS (cm) DIASTOLIC (NORMALS) SYSTOLIC (NORMALS) IVSd 1.0 (0.6-1.2) LA Diam (1.9-4.0) LVEF 55-60% LVIDd 4.5 (3.5-5.7) LVIDs 3.2 (2.0-3.5) %FS 28% LVPWd 1.0 (0.6-1.2) Ao Diam (2.0-3.7) 2 DIMENSIONAL ASSESSMENT: RIGHT ATRIUM: NORMAL LEFT ATRIUM: NORMAL RIGHT VENTRICLE: NORMAL LEFT VENTRICLE: NORMAL TRICUSPID VALVE: NORMAL MITRAL VALVE: TRACE MITRAL REGURGITATION PULMONIC VALVE: NORMAL AORTIC VALVE: NORMAL PERICARDIAL EFFUSION: NONE AORTIC ROOT: NORMAL LEFT VENTRICULAR WALL MOTION: NORMAL DOPPLER/COLOR FLOW: NORMAL COMMENTS: 1. NORMAL LEFT VENTRICULAR SYSTOLIC FUNCTION, EJECTION FRACTION 55-60%, NORMAL WALL MOTION 2. NORMAL DIASTOLIC FUNCTION 3. MILD ELEVATED FILLING PRESSURE (RIGHT ATRIUM 10-15 mmHg) TECHNOLOGIST: JOSE ELIAS GOMEZ
--- NOTE | 2023-11-29 07:09 | TREADPHA ---
DX: CHEST PAIN WITH HISTORY OF MYOCARDIAL INFARCTION Date of Study: 11/25/2023 Ht: 4' 11 " Wt: 221 lb 8 oz Consulting Physician: SAMIRA MEDICATIONS: TYLENOL, ASPIRIN, LIPITOR, NOVOLIN-R, MORPHINE, NITROSTAT, ZOFRAN, PROTONIX, CARAFATE, LISINOPRIL HISTORY: 48 YEAR OLD FEMALE WITH HISTORY OF CHEST PAIN. PHYSICIAL EXAMINATION: RESTING B.P.: 152/84 RESTING H.R.: 98 RESTING EKG: SINUS RHYTHM PROTOCOL: PHARMACOLOGIC EXERCISE TIME: 3:30 B.P. AT PEAK STRESS: 129/68 IMPRESSION: LEXISCAN INJECTED. CARDIOLITE INJECTED (SEE NUCLEAR MEDICINE REPORT). NO COMPLAINTS OF CHEST PAIN OR SHORTNESS OF BREATH. NO VENTRICULAR TACHYCARDIA/ SUPRAVENTRICULAR TACHYCARDIA. NO ARRHYTMIAS NOTED. LAST BLOOD PRESSURE 176/84, HEART RATE 74.
[2023-11-29] MEDS: HEPARIN 5000 UNIT/ML 1 ML VIAL SQ SCH (08:40)
[2023-11-29 10:18] VITALS: O2SAT 95
[2023-11-29 12:00] VITALS: BP 148/72; TEMP 97.4
--- NOTE | 2023-11-29 12:15 | P.DS ---
Admission Date: 11/26/23 Discharge Date: 12/02/23 Disposition: ROUTINE DISCHARGE Discharge Condition: GOOD Reason for Admission: Chest pain r/o DC Brief History of Present Illness: Diagnosis Chest pain r/o DC NSTEMI Respiratory Acidosis Suspected seizure activity Hypertensive Emergency Hx anxiety/depression Hx Bipolar Hx GERD HTN Diabetes mellitusNIDDM HPI 11/25/2023 Araceli Cooney is a 48 year old female with Pmhx DC, HTN, bipolar, anxiety/depression, and DM-NIDDM who presents to the ED with chief complaint of chest pain, diaphoresis, N/V that started at 4:40 AM that woke her from her sleep. She has a history of an DC. She reports seeing a psychiatrist for anxiety/depression, bipolar disorder, and insomnia. On evaluation, chest pain is non-reproducible, bowel sounds active, S1-S2 present, lung sounds clear bilaterally, ill appearing. Daughter at the bedside reports she has been vomiting for three weeks and uses marijuana to help ease her nausea. Her daughter states that she uses marijuana multiple times a day, and ran out of Ambien which was the only medication that she knows of where the dose had been adjusted adjusted recently Initial vitals: BP 167 / 110; Pulse 78; Resp 20; Pulse Ox 97% on R/A Laboratory evaluation troponin 20.5, BNP 144, H/H 14/42, WBC 11.9, Platelets 445, Serum glucose 184, BUN/creatinine 12/.01, GFR 68 Chest xray reports "No evidence of acute cardiopulmonary disease." EKG reports :normal sinus rhythm at 73 bpm with normal intervals, normal QRS, normal axis, nonspecific diffuse ST/T changes without evidence of acute isch emia. Araceli will be admitted to hospitalist service for further evaluation and treatment of Chest pain r/o, Dr. Hernandez consulted. Hospital Course: Araceli Cooney is a pleasant 48 year old female with a past medical history significant for DC, HTN, bipolar, anxiety/depression, and DM-NIDDM who was admitted to the [facility] on 11/25/23 for Chest pain with nausea and vomiting. Araceli Cooney presented to the ED with chief complaint of chest pain with intractable nausea and vomiting. Dr. Hernandez, [employer], was consulted and an immediate Nuclear medicine stress test was completed with results requiring a heart catheterization. Araceli was admitted and during transport to the hospital floor she experienced seizure like activity and was brought back to the ED for immediate attention. A code blue was called, hyertensive emergency and respiratory acidosis revealed. Araceli was stabalized with the ambu bag, keppra IV and she admitted to the ICU where she fully recovered. After two days in the ICU she was transferred to the floor and a heart catheterization was performed 11/27 showing normal coronaries. Decision was made to continue medical management for cardiac function and seizure management. Heart cath was negative for coronary occlusions. She has continued to recover and rest and is now ready for discharge with plans to follow up with cardiology, Dr. Hernandez for cardiac and blood pressure monitoring, as well as Dr. Hinojosa for further seizure monitoring and management. Since Araceli has experienced a seizure she will not be able to drive independently until cleared by Dr. Hinojosa. Please travel safe with an escort when needing to drive. On 11/29/23, Araceli was seen on morning rounds and deemed medically stable for discharge. Araceli was discharged with instructions to schedule follow-up appointments with PCP, Dr. Hinton, and Dr. Hernandez. Araceli was provided prescriptions for lisinopril, Lopressor, aspirin, Lipitor, Carafate, Protonix, Keppra. The patient and family members were given the opportunity to ask questions and reported no further questions. Furthermore, all questions were answered to the best of my ability. A copy of this discharge summary will be sent to the above providers to facilitate continuity of care. Physical Exam General: Alert and oriented x3, no acute distress, comfortable HEENT: Atraumatic, Normocephalic, PERRLA Neck: Supple, 2+ carotid pulse no bruit, JVD not distended Respiratory: Clear to auscultation bilaterally, nonlabored breathing, symmetrical chest wall movement, on room air Cardiovascular: Normal pulses, NSR, Normal S1 S2 present, no murmur noted Capillary refill: <2 Seconds Gastrointestinal: Normal active bowel sounds, Soft and benign on palpation, nontender, distended (obese) Musculoskeletal: No swelling, 2+ peripheral pulses Integumentary: No rashes Neurological: Normal speech, Normal tone Vital Signs/Physical Exam: Temp Pulse Resp BP Pulse Ox 97.2 F 94 H 17 131/80 95 11/29/23 07:49 11/29/23 08:40 11/29/23 07:49 11/29/23 08:40 11/29/23 07:49 Laboratory Data at Discharge: WBC 8.70 thou/uL (4.3-10.9) 11/29/23 06:28 Hgb 13.4 g/dL (12.0-15.0) 11/29/23 06:28 Hct 39.6 % (36.0-45.0) 11/29/23 06:28 Plt Count 331 thou/uL (152-406) 11/29/23 06:28 PT 10.3 SECONDS (9.5-12.5) 11/25/23 05:45 INR 0.93 11/25/23 05:45 APTT 63.6 SECONDS (24.3-36.9) H 11/28/23 05:48 Sodium 136 mEq/L (136-145) 11/29/23 06:28 Potassium 4.2 mEq/L (3.5-5.1) 11/29/23 06:28 BUN 10 mg/dL (7-18) 11/29/23 06:28 Creatinine 0.85 mg/dL (0.55-1.02) 11/29/23 06:28 Glucose 115 mg/dL (74-106) H 11/29/23 06:28 Phosphorus 4.5 mg/dL (2.5-4.9) 11/29/23 06:28 Magnesium 1.9 mg/dL (1.6-2.4) 11/29/23 06:28 Total Bilirubin 0.4 mg/dL (0.2-1.0) 11/25/23 17:55 AST 20 U/L (15-37) 11/25/23 17:55 ALT 28 U/L (13-56) 11/25/23 17:55 Alkaline Phosphatase 146 U/L (45-117) H 11/25/23 17:55 Triglycerides 153 mg/dL (<150) H 11/25/23 13:55 Cholesterol 165 mg/dL (<200) 11/25/23 13:55 HDL Cholesterol 74 mg/dL (40-60) H 11/25/23 13:55 Cholesterol/HDL Ratio 2.23 11/25/23 13:55 Home Medications: Fluoxetine HCl 10 mg PO DAILY 11/25/23 Lamotrigine [Lamotrigine ER] 200 mg PO BEDTIME 11/25/23 Lurasidone HCl 20 mg PO BEDTIME 11/25/23 Metformin ER [Glucophage ER*] 500 mg PO DAILY 11/25/23 Zolpidem Tartrate [Ambien*] 10 mg PO BEDTIME PRN PRN 11/25/23 Aspirin [Aspirin EC 81 MG] 81 mg PO DAILY 30 Days #30 tab 11/29/23 Atorvastatin Calcium [Lipitor] 40 mg PO BEDTIME 30 Days #30 tab 11/29/23 Lisinopril [Zestril] 10 mg PO DAILY 10 Days #30 tab 11/29/23 Metoprolol Tartrate [Lopressor*] 25 mg PO BID 6AM 6PM 30 Days #60 tab 11/29/23 Pantoprazole Sodium [Protonix] 40 mg PO DAILY 30 Days #30 tab 11/29/23 Sucralfate [Carafate*] 10 ml PO ACHS 10 Days #400 ml 11/29/23 levETIRAcetam [Keppra] 500 mg PO BID 30 Days #60 tab 11/29/23 New Medications: Aspirin [Aspirin EC 81 MG] 81 mg PO DAILY 30 Days #30 tab Sucralfate [Carafate*] 10 ml PO ACHS 10 Days #400 ml levETIRAcetam [Keppra] 500 mg PO BID 30 Days #60 tab Atorvastatin Calcium [Lipitor] 40 mg PO BEDTIME 30 Days #30 tab Metoprolol Tartrate [Lopressor*] 25 mg PO BID 6AM 6PM 30 Days #60 tab Pantoprazole Sodium [Protonix] 40 mg PO DAILY 30 Days #30 tab Lisinopril [Zestril] 10 mg PO DAILY 10 Days #30 tab Physician Discharge Instructions: Araceli Cooney presented to the ED with chief complaint of chest pain with intractable nausea and vomiting. Dr. Hernandez, [employer], was consulted and an immediate Nuclear medicine stress test was completed with results requiring a heart catheterization. Araceli was admitted and during transport to the hospital floor she experienced seizure like activity and was brought back to the ED for immediate attention. Araceli was stabalized and admitted to the ICU where she fully recovered. After two days in the ICU she was transferred to the floor and a heart catheterization was performed 11/27. Heart cath was negative for coronary occlusions. She has continued to recover and rest and is now ready for discharge with plans to follow up with cardiology, Dr. Hernandez for cardiac and blood pressure monitoring, as well as Dr. Hinojosa for further seizure monitoring and management. Since Araceli has experienced a seizure she will not be able to drive independently until cleared by Dr. Hinojosa. Please travel safe with an escort when needing to drive. Cardiology has specific blood pressure medications that have been used successfully during your hospital stay. Please use these medications that have been sent to your pharmacy and stop using the blood pressure medications you may have at home. 1. Please call and schedule a follow-up appointment with your PCP in 3-5 days - Please follow-up with your PCP for medication refills/adjustments 2. Please call and schedule a follow-up appointment with Dr. Hernandez in one week 3. Please Call and schedule a follow-up appointment with Dr. Hinojosa for continued seizure monitoring and management -You will need an escort to travel in a vehicle, please do not drive until Dr. Hinojosa has cleared you to do so. 4. Continue heart healthy diet 5. activity restrictions- do not lift greater than 8 pounds (i.e. milk jug) for two days. 6. Return to the ED if symptoms worsen New Medications Keppra 500 mg BID protonix 40 mg daily carafate TID Lopressor 25 mg p.o. twice daily Lisinopril 10 mg daily Aspirin 81 mg daily Lipitor 40 mg daily Stop taking clonidine Diet: AHA Activity: Ad heath Followup: Wild Hinojosa MD [ASSOCIATE-ACTIVE - CAN ADMIT] - Sim Hernandez MD [ACTIVE - CAN ADMIT] - Yudelka Mckenna NP [Primary Care Provider] -
== END 2023-11-29 12:45 | disposition home or self-care (01) | DRG 281 ==
LOC: ER 05:39 → ERHOLD 07:14 → 2ND 12:41 → 3RD-ICU 17:07 → OBSVTOIN 11-26 13:04 → 4TH 11-27 18:02
PROVIDERS: ADMIT Hospitalist; ATTEND Internal Medicine Sleep Medicine
PROC: 4A033R1 Measurement of Arterial Saturation, Peripheral, Percutaneous Approach (ICD-10-PCS; 2023-11-26)
PROC: 0T9B70Z Drainage of Bladder with Drainage Device, Via Natural or Artificial Opening (ICD-10-PCS; 2023-11-26)
PROC: 4A023N7 Measurement of Cardiac Sampling and Pressure, Left Heart, Percutaneous Approach (ICD-10-PCS; principal; 2023-11-28)
PROC: B2111ZZ Fluoroscopy of Multiple Coronary Arteries using Low Osmolar Contrast (ICD-10-PCS; 2023-11-28)
DX: I16.1 Hypertensive emergency (principal); E87.4 Mixed disorder of acid-base balance; I21.A1 Myocardial infarction type 2; Z68.42 Body mass index [BMI] 45.0-49.9, adult; E66.9 Obesity, unspecified; I10 Essential (primary) hypertension; E11.9 Type 2 diabetes mellitus without complications; F31.9 Bipolar disorder, unspecified; F41.9 Anxiety disorder, unspecified; G47.00 Insomnia, unspecified; K21.9 Gastro-esophageal reflux disease without esophagitis; I25.2 Old myocardial infarction; R56.9 Unspecified convulsions; R00.0 Tachycardia, unspecified; Z79.84 Long term (current) use of oral hypoglycemic drugs; Z79.899 Other long term (current) drug therapy
CPT/HCPCS: 36415; 36600; 51702; 70450; 70551; 71045; 76937; 78452; 80048; 80053; 80061; 80076; 80307; 81001; 82805; 82947; 83036; 83605; 83735; 83880; 84100; 84439; 84443; 84484; 85025; 85610; 85730; 93005; 93017; 93306; 93458; 96365; 96375; 99152; 99285; A9500; C1893; C9113; G0378; J0360; J0461; J1644; J1953; J2001; J2250; J2270; J2405; J2550; J2785; J3010; J3480; J7040; Q9966

== ENCOUNTER 2024-08-05 23:55 | Emergency (ER) | payer OTHER ==
--- OUTSIDE RECORDS SUMMARY | 2024-08-06 00:02 | XMS REPORT | Continuity of Care Document ---
Author Name Unknown Address [address] [facility] [address] [place] [address] [facility] thconnect Address [address] [facility] [address] [place] [address] Care Team Providers Care Process Control Manager Name Role Phone LAYLA ARMSTRONG Primary Care Physician Unava ilCORY Chiu Attending Clinician Unavailable JENNIE MUNGUIA Attending Clinician Unavailable [email or web address] Attending Clinician UnavailCASSIE Cifuentes Attending Clinician Unavailable Doctor Unassigned, [place] Attending Clinician U Cassie Morrison PA-C Attending Clinician [phone] Trevon Lopez DO Attending Clinician [phone], [facility] Attending Clinician Unavailable LAYLA ARMSTRONG Attending Clinician UnavailLayla Hernadez MD Attending Clinician [phone] Autumn Moses MD Attending Clinician [phone] Gt Frazier Attending Clinician Unavailab AUTUMN Hilliard Attending Clinician Unavailable KRISTIN STROUD Attending Clinician Unavailable Kristin Corbin Attending Clinician [phone] CORY SUNSHINE Admitting Clinician Unavailable [email or web address] Admitting Clinician UnavailCASSIE Cifuentes Admitting Clinician Unavailable Gt Frazier Admitting Clinician Unavailab levi Payers Payer Name Policy Type Policy Number Effective Date Expirati on Date Source MEDICARE PART A \\T\\ B [id number] 2013 00:00:00 MEDICAID OF [place] [id number] 2019 00:00:00 Problems Condition Name Condition Details Condition Category Status Onset Date Resolution Date Last Treatment Date Treating Clinician Comments Source Morbid obesity with body mass index of 40.0-49.9 Morbid obesity with body mass index of 40.0-49.9 Disease Active 2019-07-14 00:00: 00 [facility] Obesity (BMI 30-39.9) Obesity (BMI 30-39.9) Disease Active -11 00:00: 00 [facility] Screening for colorectal cancer Screening for colorectal cancer Disease Active 07-25 00:00: 00 Overview: Formattin g of this note might be different from the original. Added automatic ally from request for surgery [id number] [facility] Vaginal yeast infection Vaginal yeast infection Disease Active 08-12 00:00: 00 [facility] Presence of of 52 mg levonorges trel-relea sing intrauteri ne device (IUD) Presence of of 52 mg levonorges trel-relea sing intrauteri ne device (IUD) Disease Active 08-11 00:00: 00 [facility] Intramural leiomyoma of uterus Intramural leiomyoma of uterus Disease Active 08-11 00:00: 00 [facility] Family history of breast cancer Family history of breast cancer Disease Active 08-10 00:00: 00 [facility] Family history of uterine cancer Family history of uterine cancer Disease Active 08-10 00:00: 00 [facility] Family history of colon cancer requiring screening colonoscop y Family history of colon cancer requiring screening colonoscop y Disease Active 08-10 00:00: 00 [facility] Sjogren's disease Sjogren's disease Disease Active 08-10 00:00: 00 [facility] Tobacco use disorder Tobacco use disorder Disease Active 07-30 00:00: 00 [facility] History of depression History of depression Disease Active 07-30 00:00: 00 [facility] S/P tubal ligation S/P tubal ligation Disease Active 07-30 00:00: 00 [facility] Leukorrhea , not specified as infective Leukorrhea , not specified as infective Disease Active 07-13 00:00: 00 [facility] STD (sexually transmitte d disease) STD (sexually transmitte d disease) Disease Active 07-13 00:00: 00 [facility] BV (bacterial vaginosis) BV (bacterial vaginosis) Disease Active 07-13 00:00: 00 [facility] Excessive or frequent menstruati on Excessive or frequent menstruati on Disease Active 07-13 00:00: 00 [facility] Other specified inflammati on of vagina and vulva Other specified inflammati on of vagina and vulva Disease Active 07-13 00:00: 00 [facility] Contact with and (suspected ) exposure to other viral communicab le diseases Contact with and (suspected ) exposure to other viral communicab le diseases Disease Active 07-13 00:00: 00 [facility] Irregular menstrual cycle Irregular menstrual cycle Disease Active 07-13 00:00: 00 [facility] Allergies, Adverse Reactions, Alerts Allergy Name Allergy Type Status Severity Reaction(s) Onset Date Inactive Date Treating Clinician Comments Source [place] - Intraven ous Propensi ty to adverse reaction to drug Active 12-31 00:00: 00 Hipolito Daly No Known Medicati on Allergie s Drug Active [facility] SEROquel Drug Active [facility] No Known Medicati on Allergie s Drug Active [facility] No Known Medicati on Allergie s Drug Active [facility] SEROquel Drug Active [facility] No Known Medicati on Allergie s Drug Active [facility] SEROquel Drug Active [facility] No Known Medicati on Allergie s Drug Active [facility] SEROquel Drug Active [facility] No Known Medicati on Allergie s Drug Active [facility] No Known Medicati on Allergie s Drug Active [facility] SEROquel Drug Active [facility] No Known Medicati on Allergie s Drug Active [facility] SEROquel Drug Active [facility] No Known Medicati on Allergie s Drug Active [facility] SEROquel Drug Active [facility] No Known Medicati on Allergie s Drug Active [facility] SEROquel Drug Active [facility] No Known Medicati on Allergie s Drug Active [facility] SEROquel Drug Active [facility] No Known Medicati on Allergie s Drug Active [facility] SEROquel Drug Active [facility] NO KNOWN ALLERGIE S Drug Class Active [facility] Social History Social Habit Start Date Stop Date Quantity Comments Source History of tobacco use Cigarette Smoker [facility] to SARS-CoV-2 (event) 2021-05-17 00:00:00 2021-06-16 10:23:00 Not sure [facility] Alcohol intake 2021-06-16 00:00:00 2021-06-16 00:00:00 Ex-drinker (finding) [facility] Cigarettes smoked current (pack per day) - Reported 2020-06-16 00:00:00 2020-06-16 00:00:00 [facility] Cigarette pack-years 2020-06-16 00:00:00 2020-06-16 00:00:00 [facility] Tobacco use and exposure 2020-06-16 00:00:00 2020-06-16 00:00:00 Smokeless tobacco non-user [facility] History of Social function 2020-02-07 00:00:00 2020-02-07 00:00:00 [facility] Sex Assigned At 1975 00:00:00 1975 00:00:00 [facility] Smoking Status Start Date Stop Date Source Smoker 2020-06-16 00:00:00 [facility] Medications Ordered Medication Name Filled Medication Name Start Date Stop Date Current Medication? Ordering Clinician Indication Dosage Frequency Signature (SIG) Comments Components Source Trelegy Ellipta 100 mcg-62.5 mcg-25 mcg powder for inhalation 2023-07 00:00: 00 Yes 1mcg Hipolito Daly nicotine 7 mg/24 hr daily transdermal patch 2023-07 00:00: 00 Yes 1mg/24 hr Hipolito Daly amoxicillin 875 mg-potassiu uziel clavulanate 125 mg tablet 2023-07 00:00: 00 Yes 1mg Hipolito Daly montelukast 10 mg tablet 2023-07 00:00: 00 Yes 1mg Hipolito Daly promethazin e-DM 6.25 mg-15 mg/5 mL oral syrup 2023-07 00:00: 00 Yes 5mg/5 mL Hipolito Daly lamotrigine 200 mg tablet 2023-07 0-15 00:00: 00 Yes 1mg Hipolito Daly lurasidone 80 mg tablet 2023-07 0-15 00:00: 00 Yes 1mg Hipolito Daly lurasidone 20 mg tablet 2023-07 0-15 00:00: 00 Yes 1mg Hipolito Daly Ambien 10 mg tablet 2023-07 0-15 00:00: 00 Yes 1mg Hipolito Daly fluoxetine 10 mg capsule 2023-07 0-15 00:00: 00 Yes 1mg Hipolito Daly fluoxetine 20 mg capsule 2023-07 0-15 00:00: 00 Yes 1mg Hipolito Daly albuterol sulfate HFA 90 mcg/actuati on aerosol inhaler 2023-07 008 00:00: 00 Yes mcg/act uation Hipolito Daly fluticasone 100 mcg-salmete rol 50 mcg/dose blistr powdr for inhalation 2023-07 0-08 00:00: 00 Yes 1mcg/do se Hipolito Daly etodolac 200 mg capsule 2023-07 0-08 00:00: 00 Yes 1mg Hipolito Daly promethazin e-DM 6.25 mg-15 mg/5 mL oral syrup 2023-07 0-08 00:00: 00 Yes 5mg/5 mL Hipolito Daly atorvastati n 40 mg tablet 9-23 00:00: 00 Yes 1mg Hipolito Daly Protonix 40 mg tablet,kit yed release 03-26 00:00: 00 Yes 1mg Hipolito Daly aspirin 81 mg tablet,kit yed release 03-26 00:00: 00 Yes 1mg Hipolito Daly metoprolol tartrate 25 mg tablet 03-26 00:00: 00 Yes 1mg Hipolito Daly lamotrigine 200 mg tablet 0 03-20 00:00: 00 Yes 1mg Hipolito Daly lurasidone 80 mg tablet 03-20 00:00: 00 Yes 1mg Hipolito Daly lurasidone 20 mg tablet 03-20 00:00: 00 Yes 1mg Hipolito Daly Ambien 10 mg tablet 03-20 00:00: 00 Yes 1mg Hipolito Daly fluoxetine 10 mg capsule 03-20 00:00: 00 Yes 1mg Hipolito Daly fluoxetine 20 mg capsule 03-20 00:00: 00 Yes 1mg Hipolito Daly Ambien 10 mg tablet 03-14 00:00: 00 Yes 1mg Hioplito Daly prednisone 20 mg tablet 03-09 00:00: 00 Yes 1mg Hipolito Daly benzonatate 200 mg capsule 03-09 00:00: 00 Yes 1mg Hipolito Daly albuterol sulfate HFA 90 mcg/actuati on aerosol inhaler 03-01 00:00: 00 Yes mcg/act uation Hipolito Daly Keppra 500 mg tablet 03-01 00:00: 00 Yes 1mg Hipolito Daly amoxicillin 500 mg capsule 03-01 00:00: 00 Yes 1mg Hipolito Daly promethazin e-DM 6.25 mg-15 mg/5 mL oral syrup 03-01 00:00: 00 Yes 5mg/5 mL Hipolito Daly Keppra 500 mg tablet 02-27 00:00: 00 Yes 1mg Hipolito Daly lamotrigine 200 mg tablet 02-14 00:00: 00 Yes 1mg Hipolito Daly lurasidone 80 mg tablet 02-14 00:00: 00 Yes 1mg Hipolito Daly lurasidone 20 mg tablet 0 8-14 00:00: 00 Yes 1mg Hipolito Daly fluoxetine 10 mg capsule 0 8-14 00:00: 00 Yes 1mg Hipolito Daly fluoxetine 20 mg capsule 0 8-14 00:00: 00 Yes 1mg Hipolito Daly Ambien 10 mg tablet 0 8- 00:00: 00 Yes 1mg Hipolito Daly sucralfate 100 mg/mL oral suspension 0 8-05 00:00: 00 Yes 10mg/mL Hipolito Daly lisinopril 10 mg tablet 0 7- 00:00: 00 Yes 1mg Hipolito Daly lamotrigine 200 mg tablet 0 7-15 00:00: 00 Yes 1mg Hipolito Daly lurasidone 80 mg tablet 0 -15 00:00: 00 Yes 1mg Hipolito Daly lurasidone 20 mg tablet 0 7-15 00:00: 00 Yes 1mg Hipolito Daly Ambien 10 mg tablet 0 -15 00:00: 00 Yes 1mg Hipolito Daly fluoxetine 10 mg capsule 0 7-15 00:00: 00 Yes 1mg Hipolito Daly fluoxetine 20 mg capsule 0 7-15 00:00: 00 Yes 1mg Hipolito Daly lamotrigine 200 mg tablet 7- 00:00: 00 Yes 1mg Hipolito Daly lurasidone 80 mg tablet 0 7-05 00:00: 00 Yes 1mg Hipolito Daly lurasidone 20 mg tablet 0 7-05 00:00: 00 Yes 1mg Hipolito Daly Ambien 10 mg tablet 0 7-05 00:00: 00 Yes 1mg Hipolito Daly fluoxetine 10 mg capsule 0 7-05 00:00: 00 Yes 1mg Hipolito Daly fluoxetine 20 mg capsule 0 7-05 00:00: 00 Yes 1mg Hipolito Daly atorvastati n 40 mg tablet 0 6- 00:00: 00 Yes 1mg Hipolito Daly Protonix 40 mg tablet,kit yed release 0 - 00:00: 00 Yes 1mg Hipolito Daly aspirin 81 mg tablet,kit yed release 12-28 00:00: 00 Yes 1mg Hipolito Daly Keppra 500 mg tablet 12-28 00:00: 00 Yes 1mg Hipolito Daly metoprolol tartrate 25 mg tablet 0 12-28 00:00: 00 Yes 1mg Hipolito Daly sucralfate 100 mg/mL oral suspension 0 12-19 00:00: 00 Yes 10mg/mL Hipolito Daly atorvastati n 40 mg tablet 12-04 00:00: 00 Yes 1mg Hipolito Daly Protonix 40 mg tablet,kit yed release 12-04 00:00: 00 Yes 1mg Hipolito Daly aspirin 81 mg tablet,kit yed release 12-04 00:00: 00 Yes 1mg Hipolito Daly Keppra 500 mg tablet 12-04 00:00: 00 Yes 1mg Hipolito Daly metoprolol tartrate 25 mg tablet 12-04 00:00: 00 Yes 1mg Hipolito Daly sucralfate 100 mg/mL oral suspension 12-04 00:00: 00 Yes 10mg/mL Hipolito Daly sucralfate 100 mg/mL oral suspension 11-28 00:00: 00 Yes mg/mL Hipolito Daly Ambien 10 mg tablet 11-18 00:00: 00 Yes 1mg Hipolito Daly lurasidone 80 mg tablet 0 11-17 00:00: 00 Yes 1mg Hipolito Daly lamotrigine 200 mg tablet 0 - 00:00: 00 Yes 1mg Hipolito Daly lurasidone 20 mg tablet 0 11-17 00:00: 00 Yes 1mg Hipolito Daly clonidine HCl 0.1 mg tablet 11-17 00:00: 00 Yes 1mg Hipolito Daly fluoxetine 20 mg capsule 0 - 00:00: 00 Yes 1mg Hipolito Daly fluoxetine 10 mg capsule 0 -17 00:00: 00 Yes 1mg Hipolito Daly lamotrigine 200 mg tablet 0 4-25 00:00: 00 Yes 1mg Hipolito Daly lurasidone 20 mg tablet 0 10-26 00:00: 00 Yes 1mg Hipolito Daly lurasidone 80 mg tablet 0 10-26 00:00: 00 Yes 1mg Hipolito Daly Ambien 10 mg tablet 0 10-26 00:00: 00 Yes 1mg Hipolito Daly clonidine HCl 0.1 mg tablet 0 10-26 00:00: 00 Yes 1mg Hipolito Daly fluoxetine 10 mg capsule 0 10-26 00:00: 00 Yes 1mg Hipolito Daly fluoxetine 20 mg capsule 0 10-26 00:00: 00 Yes 1mg Hipolito Daly Ambien 10 mg tablet 09-27 00:00: 00 Yes 1mg Hipolito Daly ZOLPIDEM TARTRATE 10 MG TABS 09-27 00:00: 00 Yes Hipolito Daly lurasidone 80 mg tablet 0 09-26 00:00: 00 Yes 1mg Hipolito Daly lurasidone 20 mg tablet 0 09-26 00:00: 00 Yes 1mg Hipolito Daly lamotrigine 200 mg tablet 0 09-26 00:00: 00 Yes 1mg Hipolito Daly clonidine HCl 0.1 mg tablet 09-26 00:00: 00 Yes 1mg Hipolito Daly fluoxetine 20 mg capsule 0 3 00:00: 00 Yes 1mg Hipolito Daly fluoxetine 10 mg capsule 0 3 00:00: 00 Yes 1mg Hipolito Daly TAKE 1 TABLET AT BEDTIME NEEDED FOR SLEEP. 2 00:00: 00 Yes 10 Hipolito Daly 1 TAB AT HS WITH DINNER 0 2 00:00: 00 10-30 00:00 :00 No 80 Hipolito Daly TAKE 1 CAPSULE EVERY MORNING. 2 00:00: 00 10-30 00:00 :00 No 10 Hipolito Daly TAKE 1 TAB TID PRN ANXIETY 0 2 00:00: 00 10-30 00:00 :00 No 1 Hipolito Daly TAKE 1 TAB IN THE EVENING WITH DINNER 08-30 00:00: 00 10-30 00:00 :00 No 20 Hipolito Daly 1 TAB AT BEDTIME 08-30 00:00: 00 10-30 00:00 :00 No 200 Hipolito Daly atorvastati n 20 mg tablet 08-09 00:00: 00 Yes mg Hipolito Daly metformin 500 mg tablet 08-09 00:00: 00 Yes mg Hipolito Daly TAKE 1 TABLET EVERY MORNING. 08-09 00:00: 00 Yes 10 Hipoliot Daly clonidine HCl 0.1 mg tablet 08-05 00:00: 00 Yes mg Hipolito Daly fluoxetine 10 mg capsule 08-05 00:00: 00 Yes mg Hipolito Daly fluoxetine 20 mg capsule 08-05 00:00: 00 Yes mg Hipolito Daly lamotrigine 200 mg tablet 08-05 00:00: 00 Yes mg Hipolito Daly lurasidone 20 mg tablet 08-05 00:00: 00 Yes mg Hipolito Daly lurasidone 80 mg tablet 08-05 00:00: 00 Yes mg Hipolito Daly LURASIDONE HYDROCHLORI DE 80 MG TABS 08-05 00:00: 00 Yes Hipolito Daly LURASIDONE HYDROCHLORI DE 20 MG TABS 08-05 00:00: 00 Yes Hipolito Daly TAKE 1 CAPSULE EVERY MORNING. 08-05 00:00: 00 10-30 00:00 :00 No 10 Hipolito Daly 1 TAB AT BEDTIME 08-05 00:00: 00 10-30 00:00 :00 No 200 Hipolito Daly TAKE 1 CAPSULE EVERY MORNING. 08-05 00:00: 00 10-30 00:00 :00 No 20 Hipolito Daly DIVALPROEX SODIUM ER 500 MG TB24 - 00:00: 00 Yes Hipolito Daly TAKE 1 TABLET AT BEDTIME. 07-22 00:00: 00 10-30 00:00 :00 No 500 Hipolito Daly TAKE 1 TABLET AT BEDTIME. 1-19 00:00: 00 10-30 00:00 :00 No 100 Hipolito F Addy FLUOXETINE HYDROCHLORI DE 10 MG 1- 00:00: 00 Yes Hipolito F Addy LAMOTRIGINE 200 MG TABS 1- 00:00: 00 Yes Hipolito F Addy TAKE 1 CAPSULE EVERY MORNING. - 00:00: 00 10-30 00:00 :00 No 20 Hipolito F Addy 1 TAB AT HS WITH DINNER - 00:00: 00 10-30 00:00 :00 No 80 Hipolito F Addy TAKE 1 TAB TID PRN ANXIETY 07-08 00:00: 00 10-30 00:00 :00 No 1 Hipolito F Addy 1 TAB AT BEDTIME 07-08 00:00: 00 10-30 00:00 :00 No 200 Hipolito F Addy TAKE 1 TAB IN THE EVENING WITH DINNER 07-08 00:00: 00 10-30 00:00 :00 No 20 Hipolito F Addy TAKE 1 CAPSULE EVERY MORNING. 07-08 00:00: 00 10-30 00:00 :00 No 10 Hipolito F Addy lorazepam 1 mg tablet 2022-07 00:00: 00 Yes mg Hipolito Jannet Addy 1 TAB AT HS WITH DINNER 2022-07 00:00: 00 10-30 00:00 :00 No 80 Hipolito F Addy 1 TAB AT BEDTIME 2022-07 2 00:00: 00 10-30 00:00 :00 No 200 Hipolito F Addy TAKE 1 TAB TID PRN ANXIETY 2022-07 2 00:00: 00 10-30 00:00 :00 No 1 Hipolito F Addy TAKE 1 CAPSULE EVERY MORNING. 2022-07 2- 00:00: 00 10-30 00:00 :00 No 20 Hipolito F Addy TAKE 1 CAPSULE EVERY MORNING. 2022-07 2 00:00: 00 10-30 00:00 :00 No 10 Hipolito F Addy lisinopril 10 mg tablet 2022-07 00:00: 00 Yes mg Hipolito Daly QUETIAPINE FUMARATE 25 MG TABS 2022-07 00:00: 00 Yes Hipolito Daly FLUOXETINE HCL 20 MG 2022-07 00:00: 00 Yes Hipolito Daly FLUOXETINE HYDROCHLORI DE 10 MG 2022-07 00:00: 00 Yes Hipolito Daly TAKE 1 CAPSULE EVERY MORNING. 2022-07 00:00: 00 10-30 00:00 :00 No 20 Hipolito Daly 1 TAB AT BEDTIME 2022-07 00:00: 00 10-30 00:00 :00 No 200 Hipolito Daly TAKE 1 TAB TID PRN ANXIETY 2022-07 00:00: 00 10-30 00:00 :00 No 1 Hipolito Daly TAKE 1 OR 2 TABLETS AT BEDTIME NEEDED FOR SLEEP. 2022-07 00:00: 00 10-30 00:00 :00 No 25 Hipolito Daly 1 TAB AT HS WITH DINNER 2022-07 00:00: 00 10-30 00:00 :00 No 80 Hipolito Daly TAKE 1 CAPSULE EVERY MORNING. 2022-07 00:00: 00 10-30 00:00 :00 No 10 Hipolito Daly TAKE 1 TABLET AT BEDTIME. 2022-07 00:00: 00 Yes 20 Hipolito Daly TAKE 1 TABLET DAILY. 2022-07 00:00: 00 Yes 500 Hipolito Daly LISINOPRIL 10 MG TABS 2022-07 00:00: 00 Yes Hipolito Daly TAKE 1 TABLET AT BEDTIME NEEDED FOR SLEEP. 2022-07 0-20 00:00: 00 Yes 10 Hipolito Daly ZOLPIDEM TARTRATE 10 MG TABS 2022-07 0-20 00:00: 00 Yes Hipolito Daly LURASIDONE HYDROCHLORI DE 60 MG TABS 2022-07 0-20 00:00: 00 Yes Hipolito Daly FLUOXETINE HCL 20 MG 2022-07 0-20 00:00: 00 Yes Hipolito Daly LAMOTRIGINE 200 MG TABS 2022-07 0-20 00:00: 00 Yes Hipolito Daly FLUOXETINE HYDROCHLORI DE 10 MG 2022-07 0- 00:00: 00 Yes Hipolito Daly TAKE 1 TABLET DAILY. 2022-07 0 00:00: 00 10-30 00:00 :00 No 500 Hipolito Daly TAKE 1 CAPSULE EVERY MORNING. 2022-07 0 00:00: 00 10-30 00:00 :00 No 20 Hipolito Daly TAKE 1 TAB TID PRN ANXIETY 2022-07 0 00:00: 00 10-30 00:00 :00 No 1 Hipolito Daly TAKE 1 CAPSULE EVERY MORNING. 2022-07 0 00:00: 00 10-30 00:00 :00 No 10 Hipolito Daly TAKE 1 TAB Q HS WITH DINNER 2022-07 0 00:00: 00 10-30 00:00 :00 No 60 Hipolito Daly 1 TAB AT BEDTIME 2022-07 00:00: 00 10-30 00:00 :00 No 200 Hipolito Daly TAKE 1 TABLET DAILY. 2022-07 0 00:00: 00 10-30 00:00 :00 No 500 Hipolito Daly TAKE 1 TABLET AT BEDTIME NEEDED. 03-27 00:00: 00 10-30 00:00 :00 No 5 Hipolito Daly LURASIDONE HYDROCHLORI DE 40 MG TABS 03-25 00:00: 00 Yes Hipolito Daly LAMOTRIGINE 200 MG TABS 03-25 00:00: 00 Yes Hipolito Daly TAKE 1 TAB Q HS WITH DINNER 03-25 00:00: 00 10-30 00:00 :00 No 40 Hipolito Daly 1 TAB AT BEDTIME 03-25 00:00: 00 10-30 00:00 :00 No 200 Hipolito Daly TAKE 1 CAPSULE EVERY MORNING. 03-25 00:00: 00 10-30 00:00 :00 No 10 Hipolito Daly TAKE 1 TAB TID PRN ANXIETY 03-25 00:00: 10-30 00:00 :00 No 1 Hipolito Daly zolpidem 5 mg tablet 02-23 00:00: 00 Yes mg Hipolito Daly TAKE 1 TABLET AT BEDTIME NEEDED. 02-22 00:00: 00 Yes 5 Hipolito Daly FLUOXETINE HCL 20 MG 02-22 00:00: 00 Yes Hipolito Daly LAMOTRIGINE 100 MG TABS 02-22 00:00: 00 Yes Hipolito Daly TAKE 1 CAPSULE EVERY MORNING. 02-22 00:00: 00 10-30 00:00 :00 No 10 Hipolito Daly TAKE 1 TABLET AT BEDTIME. 02-22 00:00: 00 10-30 00:00 :00 No 100 Hipolito Daly TAKE 1/2 TO 1 TABLET TWICE DAILY NEEDED. 02-22 00:00: 00 10-30 00:00 :00 No 1 Hipolito Daly TAKE 1 TAB Q HS WITH DINNER 02-22 00:00: 00 10-30 00:00 :00 No 40 Hipolito Daly TAKE 1 CAPSULE EVERY MORNING. 02-22 00:00: 00 10-30 00:00 :00 No 20 Hipolito Daly FLUOXETINE HCL 20 MG 01-24 00:00: 00 Yes Hipolito Daly LAMOTRIGINE 100 MG TABS 01-24 00:00: 00 Yes Hipolito Daly FLUOXETINE HYDROCHLORI DE 10 MG 01-24 00:00: 00 Yes Hipolito Daly TAKE 1 OR 2 TABLETS AT BEDTIME NEEDED FOR SLEEP. 01-24 00:00: 00 10-30 00:00 :00 No 100 Hipolito Daly TAKE 1 1/2 TABS Q HS X 5 DAYS THEN DECREASE TO 1 TAB QHS X 5 DAYS THEN DECREASE TO 1/2 TAB X 5 DAYS THEN STOP 01-24 00:00: 00 10-30 00:00 :00 No 10 Hipolito Daly TAKE 1 CAPSULE EVERY MORNING. 01-24 00:00: 00 10-30 00:00 :00 No 20 Hipolito Daly TAKE 1 TABLET AT BEDTIME. 01-24 00:00: 00 10-30 00:00 :00 No 100 Hipolito Daly TAKE HALF A TAB Q HS WITH DINNER X 7 DAYS THEN INCREASE TO 1 TAB 01-24 00:00: 00 10-30 00:00 :00 No 40 Hipolito Daly TAKE 1/2 TO 1 TABLET TWICE DAILY NEEDED. 01-24 00:00: 00 10-30 00:00 :00 No 1 Hipolito Daly TAKE 1 CAPSULE EVERY MORNING. 01-24 00:00: 00 10-30 00:00 :00 No 10 Hipolito Daly olanzapine 20 mg tablet 01-14 00:00: 00 Yes mg Hipolito Daly TAKE 1 TABLET DAILY. 01-08 00:00: 00 10-30 00:00 :00 No 500 Hipolito Daly PREGABALIN 100 MG 01-07 00:00: 00 Yes Hipolito Daly TAKE 2 TABLETS NIGHTLY 01-07 00:00: 00 10-30 00:00 :00 No 100 Hipolito Daly LAMOTRIGINE 100 MG TABS 12-30 00:00: 00 Yes Hipolito Daly FLUOXETINE HYDROCHLORI DE 10 MG 12-30 00:00: 00 Yes Hipolito Daly FLUOXETINE HCL 20 MG 12-30 00:00: 00 Yes Hipolito Daly TAKE 1 TABLET AT BEDTIME. 12-30 00:00: 00 10-30 00:00 :00 No 100 Hipolito Daly TAKE 1/2 TO 1 TABLET TWICE DAILY NEEDED. 12-30 00:00: 00 10-30 00:00 :00 No 1 Hipolito Daly TAKE 1 TABLET AT BEDTIME. 12-30 00:00: 00 10-30 00:00 :00 No 20 Hipolito Daly TAKE 1 CAPSULE EVERY MORNING. 12-30 00:00: 00 10-30 00:00 :00 No 20 Hipolito Daly 1-2 TABS AT BEDTIME PRN SLEEP 12-30 00:00: 00 10-30 00:00 :00 No 50 Hipolito Daly PREGABALIN 100 MG 12-14 00:00: 00 Yes Hipolito Daly TAKE 1 CAPSULE TWICE DAILY. 12-14 00:00: 00 10-30 00:00 :00 No 100 Hipolito Daly TAKE 1 CAPSULE TWICE DAILY. 12-13 00:00: 00 10-30 00:00 :00 No 100 Hipolito Daly TAKE 1 TABLET EVERY MORNING. 12-10 00:00: 00 10-30 00:00 :00 No 10 Hipolito Daly TAKE 1 CAPSULE TWICE DAILY. 12-10 00:00: 00 10-30 00:00 :00 No 100 Hipolito Daly LAMOTRIGINE 25 MG TABS 11-26 00:00: 00 Yes Hipolito Daly TAKE 1 CAPSULE EVERY MORNING. 11-26 00:00: 00 10-30 00:00 :00 No 20 Hipolito Daly TAKE 1 OR 2 TABLETS AT BEDTIME NEEDED FOR SLEEP. 11-26 00:00: 00 10-30 00:00 :00 No 1 Hipolito Daly TAKE 2 TABLETS AT BEDTIME. 11-26 00:00: 00 10-30 00:00 :00 No 25 Hipolito Daly TAKE 1 TABLET AT BEDTIME. 11-26 00:00: 00 10-30 00:00 :00 No 20 Hipolito Daly PROZAC 10 MG 11-26 00:00: 00 10-30 00:00 :00 No Hipolito Jannet Daly Zyprexa 20 mg tablet 11-22 00:00: 00 Yes mg Hipolito Daly TAKE 1 TABLET AT BEDTIME. 11-03 00:00: 00 10-30 00:00 :00 No 25 Hipolitoamanda Daly TAKE 1 TABLET AT BEDTIME. 11-03 00:00: 00 10-30 00:00 :00 No 20 Hipolito Daly TAKE HALF TO 1 TAB AT BEDTIME - 00:00: 00 10-30 00:00 :00 No 1 Hipolito Daly TAKE 1 CAPSULE EVERY MORNING. - 00:00: 00 10-30 00:00 :00 No 20 Hipolito Daly ZYPREXA 20 MG TABS 5- 00:00: 00 Yes Hipolito Daly TAKE 1 CAPSULE EVERY MORNING. - 00:00: 00 10-30 00:00 :00 No 10 Hipolito Daly TAKE 1 TABLET AT BEDTIME. - 00:00: 00 10-30 00:00 :00 No 25 Hipolito Daly TAKE 1 TABLET AT BEDTIME. - 00:00: 00 10-30 00:00 :00 No 20 Hipolito Daly TAKE HALF TO 1 TAB AT BEDTIME - 00:00: 00 10-30 00:00 :00 No 1 Hipolito Daly GABAPENTIN 600 MG TABS 0 3-09 00:00: 00 Yes Hipolito Daly LISINOPRIL 10 MG TABS 0 3-09 00:00: 00 Yes Hipolito Daly MIRTAZAPINE 30 MG TABS 0 2-21 00:00: 00 Yes Hipolito Daly FLUOXETINE HYDROCHLORI DE 10 MG 0 2-21 00:00: 00 Yes Hipolito Daly OLANZAPINE 20 MG TABS 0 2-21 00:00: 00 10-30 00:00 :00 No Hipolito Daly MIRTAZAPINE 30MG 2022-0 2-06 00:00: 00 Yes [id number] Hipolito Daly FLUOXETIN(P ) 10MG 2022-0 2-02 00:00: 00 Yes Hipolito Daly FLUOXETIN(P ) 20MG 2022-0 2-02 00:00: 00 Yes [id number] Hipolito Daly MIRTAZAPINE 30MG 2022-0 1-03 00:00: 00 Yes [id number] Hipolito Daly FLUOXETIN(P ) 20MG 2021-07 2-21 00:00: 00 Yes Hipolito Daly TAKE ONE TABLET BY MOUTH DAILY 2021-07 00:00: 00 10-30 00:00 :00 No 600 Hipolito F Addy MIRTAZAPINE 30MG 1 08-11 00:00: 00 Yes Hipolito F Addy OLANZAPINE 20MG 1 07-22 00:00: 00 10-30 00:00 :00 No 20 Hipolito F Addy LISINOPRIL 10MG 1 07-10 00:00: 00 Yes 10 Hipolito F Addy GABAPENTIN 600MG 1 07-10 00:00: 00 Yes [id number] Hipolito F Addy LISINOPRIL 10MG TAB 2-0 9- 00:00: 00 Yes Hipolito F Addy &lt 2022-0 8- 00:00: 00 Yes 600 Hipolito F Addy &lt 2022-0 8- 00:00: 00 Yes 15 Hipolito F Addy &lt 2022-0 8- 00:00: 00 No 600 &lt 2022-0 8-09 00:00: 00 No 15 FLUOXETINE HYDROCHLORI DE 10MG 2021-0 8-05 00:00: 00 Yes [id number] Hipolito F Addy FLUOXETINE HCL 20MG 2-0 8-05 00:00: 00 Yes [id number] Hipolito F Addy &lt 2022-0 7-13 00:00: 00 Yes 20 Hipolito F Addy &lt 2022-0 7-13 00:00: 00 Yes 20 Hipolito F Addy &lt 2022-0 7-13 00:00: 00 Yes 600 Hipolito F Addy &lt 2022-0 7-13 00:00: 00 No 20 &lt 2022-0 7-13 00:00: 00 No 20 &lt 2022-0 7-13 00:00: 00 No 600 &lt 2022-0 7-13 00:00: 00 No 20 &lt 2022-0 7-13 00:00: 00 No 20 &lt 2022-0 7-13 00:00: 00 No 600 &lt 2022-0 7-12 00:00: 00 Yes 600 Hipolito F Addy &lt 2022-0 7-12 00:00: 00 Yes 20 Hipolito F Addy &lt 2022-0 7-12 00:00: 00 Yes 500 Hipolito F Addy &lt 2022-0 7-12 00:00: 00 Yes 15 Hipolito Daly LISINOPRIL 10MG 2022-0 7-12 00:00: 00 Yes [id number] Hipolito Daly &lt 2022-0 7-12 00:00: 00 No 600 &lt 2022-0 7-12 00:00: 00 No 20 &lt 2022-0 7-12 00:00: 00 No 500 &lt 2022-0 7-12 00:00: 00 No 15 &lt 2022-0 7-12 00:00: 00 No 600 &lt 2022-0 7-12 00:00: 00 No 20 &lt 2022-0 7-12 00:00: 00 No 500 &lt 2022-0 7-12 00:00: 00 No 15 FLUOXETINE HYDROCHLORI DE 10MG 2022-0 7-06 00:00: 00 Yes [id number] Hipolito Daly TAKE ONE TABLET BY MOUTH DAILY 2022-0 6-30 00:00: 00 Yes Hipolito Daly lisinopril 5 mg tablet 2022-0 630 00:00: 00 Yes 1mg Hipolito Daly &lt 2022-0 6-30 00:00: 00 Yes Hipolito Daly gabapentin 600 mg tablet 2022-0 6-30 00:00: 00 No 1mg lisinopril 5 mg tablet 2022-0 630 00:00: 00 No 1mg &lt 2022-0 6-30 00:00: 00 No gabapentin 600 mg tablet 2022-0 630 00:00: 00 No 1mg lisinopril 5 mg tablet 2022-0 630 00:00: 00 No 1mg &lt 2022-0 6-30 00:00: 00 No OLANZAPINE 20MG 2022-0 6-20 00:00: 00 2023- -29 00:00 :00 No [id number] Hipolito Daly TAKE ONE TABLET BY MOUTH DAILY 2022-0 6-12 00:00: 00 Yes Hipolito Daly gabapentin 600 mg tablet 2022-0 6-12 00:00: 00 No 1mg gabapentin 600 mg tablet 2022-0 6-12 00:00: 00 No 1mg gabapentin 600 mg tablet 2022-0 6-10 00:00: 00 Yes 1mg Hipolito Daly &lt 2022-0 6-10 00:00: 00 Yes Hipolito Daly Dose Unknown 2021-0 6-10 00:00: 00 Yes Hipolito Daly &lt 2022-0 6-10 00:00: 00 Yes Hipolito Daly Dose Unknown 0 6-10 00:00: 00 Yes Hipolito Daly gabapentin 600 mg tablet 0 6-10 00:00: 00 No 1mg &lt 2022-0 6-10 00:00: 00 No Dose Unknown 2-0 6-10 00:00: 00 No &lt 2022-0 6-10 00:00: 00 No Dose Unknown 2022-0 6-10 00:00: 00 No gabapentin 600 mg tablet 2021-0 6-10 00:00: 00 No 1mg &lt 2022-0 6-10 00:00: 00 No Dose Unknown 2-0 6-10 00:00: 00 No &lt 2022-0 6-10 00:00: 00 No Dose Unknown 2-0 6-10 00:00: 00 No Dose Unknown 2021-0 6-08 00:00: 00 Yes Hipolito Daly Dose Unknown 2021-0 6-08 00:00: 00 Yes Hipolito Daly Dose Unknown 2021-0 6-08 00:00: 00 No Dose Unknown 2-0 6-08 00:00: 00 No Dose Unknown 2-0 6-08 00:00: 00 No Dose Unknown 2-0 6-08 00:00: 00 No FLUOXETINE HYDROCHLORI DE 10MG 0 5-18 00:00: 00 Yes [id number] Hipolito Daly metroNIDAZO LE 500 mg tablet 2020-07 215 00:00: 00 Yes [id number] 500mg Take 1 tablet by mouth every 12 (twelve) hours. [facility] FLUoxetine 20 mg capsule 2020-07 00:00: [address] [facility] mirtazapine 15 mg tablet 2020-07 00:00: [address] [facility] gabapentin 600 mg tablet 2020-07 00:00: 00 Yes 1mg Hipolito Daly gabapentin 600 mg tablet 2020-07 00:00: 00 No 1mg gabapentin 600 mg tablet 2020-07 00:00: 00 No 1mg TAKE ONE TABLET BY MOUTH DAILY 2020-07 00:00: 00 Yes Hipolito Daly gabapentin 600 mg tablet 2020-07 00:00: 00 No 1mg gabapentin 600 mg tablet 2020-07 00:00: 00 No 1mg TAKE ONE TABLET BY MOUTH DAILY 04-01 00:00: 00 Yes Hipolito Daly gabapentin 600 mg tablet 04-01 00:00: 00 No 1mg gabapentin 600 mg tablet 04-01 00:00: 00 No 1mg TAKE ONE TABLET BY MOUTH DAILY 01-27 00:00: 00 Yes Hipolito Daly gabapentin 600 mg tablet 01-27 00:00: 00 No 1mg gabapentin 600 mg tablet 01-27 00:00: 00 No 1mg TAKE ONE TABLET BY MOUTH DAILY 12-18 00:00: 00 Yes Hipolito Daly gabapentin 300 mg capsule 12-18 00:00: 00 No 1mg gabapentin 300 mg capsule 12-18 00:00: 00 No 1mg ibuprofen 800 mg tablet 2019-07 10:58: 38 Yes 800mg Take 800 mg by mouth every 6 (six) hours as needed. [facility] amitriptyli ne 75 mg tablet 2019-07 10:57: 54 Yes 75mg Take 75 mg by mouth at bedtime. [facility] OLANZapine 15 mg tablet 2019-07 00:00: [address] [facility] peg-electro lyte soln 236-22.74-6 .74 -5.86 gram solution 07-25 00:00: 00 Yes [id number] 4000mL Take 4,000 mL by mouth SEE-INSTRU CTIONS. Take as directed [facility] buPROPion XL 150 mg 24 hr tablet 2018-07 00:00: [address] [facility] Wellbutrin XL 150 mg 24 hr tablet, extended release 2018-07 00:00: 00 Yes 1mg Hipolito Daly trazodone 50 mg tablet 2018-07 00:00: 00 Yes 1mg Hipolito Daly Wellbutrin XL 150 mg 24 hr tablet, extended release 2018-07 00:00: 00 No 1mg trazodone 50 mg tablet 2018-07 00:00: 00 No 1mg Wellbutrin XL 150 mg 24 hr tablet, extended release 2018-07 00:00: 00 No 1mg trazodone 50 mg tablet 2018-07 00:00: 00 No 1mg hydroxyzine HCl 50 mg tablet 2018-07 00:00: 00 Yes 1mg Hipolito Daly hydroxyzine HCl 50 mg tablet 2018-07 00:00: 00 No 1mg hydroxyzine HCl 50 mg tablet 2018-07 00:00: 00 No 1mg nitroglycer in 0.4 mg sublingual tablet 03-16 00:00: 00 Yes 1mg Hipolito Daly nitroglycer in 0.4 mg sublingual tablet 03-16 00:00: 00 No 1mg nitroglycer in 0.4 mg sublingual tablet 03-16 00:00: 00 No 1mg hydrOXYzine 50 mg capsule 2015-07 00:00: 00 Yes TAKE 1-2 CAPS DAILY NEEDED FOR ANXIETY [facility] Immunizations Ordered Immunization Name Filled Immunization Name Date Status Comments Source Moderna COVID-19 Vaccine Moderna COVID-19 Vaccine 2020-09-13 00:00:00 Completed Hipolito Jannet Daly Moderna COVID-19 Vaccine Moderna COVID-19 Vaccine 2020-09-13 00:00:00 Completed Hipolito Daly Moderna COVID-19 Vaccine 2020-09-13 00:00:00 Completed Moderna COVID-19 Vaccine 2020-09-13 00:00:00 Completed Moderna COVID-19 Vaccine 2020-09-13 00:00:00 Completed Moderna COVID-19 Vaccine 2020-09-13 00:00:00 Completed Vital Signs Vital Name Observation Time Observation Value Comments S carlyle Systolic blood pressure 2021-06-16 16:42:00 132 mm[Hg] [facility] Diastolic blood pressure 2021-06-16 16:42:00 90 mm[Hg] [facility] Heart rate 2021-06-16 16:41:00 112 /min [facility] Body temperature 2021-06-16 16:41:00 36.83 Marlys [facility] Respiratory rate 2021-06-16 16:41:00 18 /min [facility] Body height 2021-06-16 16:41:00 149.9 cm [facility] Body weight 2021-06-16 16:41:00 113.853 kg [facility] BMI 2021-06-16 16:41:00 50.70 kg/m2 [facility] Height/Length Measured 2021-07-21 08:53:33 149.9 [...] 17:15:16 Height/Length Measured 2019-07-27 13:25:33 BP Systolic 2024-05-15 14:54:00 144 mm[Hg] Step hen F Addy BP Diastolic 2024-05-15 14:54:00 81 mm[Hg] Nishant phen F Addy Weight Measured 2024-05-15 14:54:00 197.60 pounds Hipolito F Addy Height Measured 2024-05-15 14:54:00 59.70 inches Hipolito F Addy Body Temperature 2024-05-15 14:54:00 98.00 degrees Hipolito F Addy Heart Rate 2024-05-15 14:54:00 86.00 /min Brandy en F Addy Respiratory Rate 2024-05-15 14:54:00 Hipolito F Addy BP Systolic 2024-03-09 15:18:00 120 mm[Hg] Step hen F Addy BP Diastolic 2024-03-09 15:18:00 79 mm[Hg] Nishant phen F Addy Weight Measured 2024-03-09 15:18:00 204.20 pounds Hipolito F Addy Height Measured 2024-03-09 15:18:00 59.70 inches Hipolito F Addy Body Temperature 2024-03-09 15:18:00 97.90 degrees Hipolito F Addy Heart Rate 2024-03-09 15:18:00 88.00 /min Brandy en F Addy Respiratory Rate 2024-03-09 15:18:00 18.00 /min Hipolito F Addy BP Systolic 2023-08-09 15:31:00 132 mm[Hg] Step hen F Addy BP Diastolic 2023-08-09 15:31:00 92 mm[Hg] Nishant phen F Addy Weight Measured 2023-08-09 15:31:00 231.00 pounds Hipolito F Addy Height Measured 2023-08-09 15:31:00 59.70 inches Hipolito F Addy Body Temperature 2023-08-09 15:31:00 98.20 degrees Hipolito F Addy Heart Rate 2023-08-09 15:31:00 96.00 /min Brandy en F Addy Respiratory Rate 2023-08-09 15:31:00 19.00 /min Hipolito F Addy BP Systolic 2023-07-21 15:50:00 135 mm[Hg] Step hen F Addy BP Diastolic 2023-07-21 15:50:00 85 mm[Hg] Nishant phen F Addy Weight Measured 2023-07-21 15:50:00 229.40 pounds Hipolito F Addy Height Measured 2023-07-21 15:50:00 59.70 inches Hipolito F Addy Body Temperature 2023-07-21 15:50:00 98.10 degrees Hipolito F Addy Heart Rate 2023-07-21 15:50:00 96.00 /min Brandy en F Addy Respiratory Rate 2023-07-21 15:50:00 18.00 /min Hipolito F Addy BP Systolic 2023-05-13 14:20:00 128 mm[Hg] Step hen F Addy BP Diastolic 2023-05-13 14:20:00 87 mm[Hg] Nishant phen F Addy Weight Measured 2023-05-13 14:20:00 234.00 pounds Hipolito F Addy Height Measured 2023-05-13 14:20:00 59.70 inches Hipolito F Addy Body Temperature 2023-05-13 14:20:00 98.30 degrees Hipolito F Addy Heart Rate 2023-05-13 14:20:00 117.00 /min Step hen F Addy Respiratory Rate 2023-05-13 14:20:00 Hipolito F Addy BP Systolic 2023-01-07 14:27:00 119 mm[Hg] Step hen F Addy BP Diastolic 2023-01-07 14:27:00 87 mm[Hg] Nishant phen F Addy Weight Measured 2023-01-07 14:27:00 254.80 pounds Hipolito F Addy Height Measured 2023-01-07 14:27:00 59.70 inches Hipolito F Addy Body Temperature 2023-01-07 14:27:00 98.30 degrees Hipolito F Addy Heart Rate 2023-01-07 14:27:00 114.00 /min Step hen F Addy Respiratory Rate 2023-01-07 14:27:00 18.00 /min Hipolito F Addy BP Systolic 2022-12-10 14:23:00 124 mm[Hg] Step hen F Addy BP Diastolic 2022-12-10 14:23:00 84 mm[Hg] Nishant phen F Addy Weight Measured 2022-12-10 14:23:00 250.40 pounds Hipolito F Addy Height Measured 2022-12-10 14:23:00 59.70 inches Hipolito F Addy Body Temperature 2022-12-10 14:23:00 98.50 degrees Hipolito F Addy Heart Rate 2022-12-10 14:23:00 105.00 /min Step hen F Addy Respiratory Rate 2022-12-10 14:23:00 Hipolito F Addy BP Systolic 2022-09-09 17:31:00 150 mm[Hg] Step hen F Addy BP Diastolic 2022-09-09 17:31:00 92 mm[Hg] Nishant phen F Addy Weight Measured 2022-09-09 17:31:00 260.40 pounds Hipolito F Addy Height Measured 2022-09-09 17:31:00 59.70 inches Hipolito F Addy Body Temperature 2022-09-09 17:31:00 98.10 degrees Hipolito F Addy Heart Rate 2022-09-09 17:31:00 110.00 /min Step hen F Addy Respiratory Rate 2022-09-09 17:31:00 18.00 /min Hipolito F Addy BP Systolic 2022-06-11 14:46:00 154 mm[Hg] Step hen F Addy BP Diastolic 2022-06-11 14:46:00 89 mm[Hg] Nishant phen F Addy Weight Measured 2022-06-11 14:46:00 258.60 pounds Hipolito F Addy Height Measured 2022-06-11 14:46:00 59.70 inches Hipolito F Addy Body Temperature 2022-06-11 14:46:00 98.20 degrees Hipolito F Addy Heart Rate 2022-06-11 14:46:00 100.00 /min Step hen F Addy Respiratory Rate 2022-06-11 14:46:00 Hipolito F Addy BP Systolic 2022-02-12 15:48:00 150 mm[Hg] Step hen F Addy BP Diastolic 2022-02-12 15:48:00 90 mm[Hg] Nishant phen F Addy Weight Measured 2022-02-12 15:48:00 252.80 pounds Hipolito F Addy Height Measured 2022-02-12 15:48:00 59.70 inches Hipolito F Addy Body Temperature 2022-02-12 15:48:00 98.10 degrees Hipolito F Addy Heart Rate 2022-02-12 15:48:00 106.00 /min Step hen F Addy Respiratory Rate 2022-02-12 15:48:00 Hipolito F Addy BP Systolic 2022-01-12 14:28:00 Step hen F Addy BP Diastolic 2022-01-12 14:28:00 Nishant phen F Addy Weight Measured 2022-01-12 14:28:00 251.80 pounds Hipolito F Addy Height Measured 2022-01-12 14:28:00 59.70 inches Hipolito F Addy Body Temperature 2022-01-12 14:28:00 Hipolito F Addy Heart Rate 2022-01-12 14:28:00 Brandy en F Addy Respiratory Rate 2022-01-12 14:28:00 Hipolito F Addy BP Systolic 2021-12-31 14:56:00 139 mm[Hg] Step hen F Addy BP Diastolic 2021-12-31 14:56:00 95 mm[Hg] Nishant phen F Addy Weight Measured 2021-12-31 14:56:00 251.80 pounds Hipolito F Addy Height Measured 2021-12-31 14:56:00 59.70 inches Hipolito F Addy Body Temperature 2021-12-31 14:56:00 98.40 degrees Hipolito F Addy Heart Rate 2021-12-31 14:56:00 106.00 /min Step hen F Addy Respiratory Rate 2021-12-31 14:56:00 17.00 /min Hipolito F Addy BP Systolic 2021-12-11 15:08:00 129 mm[Hg] BP [...] Goal Plan of Care Note [code = 06640-1] Goal Plan of Care Note [code = 65498-3] Goal Plan of Care Note [code = 99971-4] Goal Plan of Care Note [code = 56737-6] Goal Plan of Care Note [code = 49548-2] Goal Plan of Care Note [code = 19751-4] Goal Plan of Care Note [code = 65723-9] Goal Plan of Care Note [code = 53615-8] Goal Plan of Care Note [code = 28633-7] Goal Plan of Care Note [code = 08009-8] Goal Plan of Care Note [code = 21758-0] Goal Plan of Care Note [code = 30052-4] Goal Plan of Care Note [code = 97095-7] Goal Plan of Care Note [code = 79683-1] Goal Plan of Care Note [code = 87700-7] Goal Plan of Care Note [code = 20243-8] Goal Plan of Care Note [code = 98607-2] Goal Plan of Care Note [code = 84357-1] Goal Plan of Care Note [code = 61964-2] Goal Plan of Care Note [code = 16400-6] Goal Plan of Care Note [code = 60684-2] Goal Plan of Care Note [code = 66787-9] Goal Plan of Care Note [code = 82239-4] Goal Plan of Care Note [code = 26291-9] Goal Plan of Care Note [code = 86730-1] Goal Plan of Care Note [code = 35880-3] Goal Plan of Care Note [code = 95731-2] Goal Plan of Care Note [code = 41790-7] Goal Plan of Care Note [code = 77883-1] Goal Plan of Care Note [code = 72061-8] Goal Plan of Care Note [code = 57581-6] Goal Plan of Care Note [code = 95957-7] Goal Plan of Care Note [code = 14483-2] Goal Plan of Care Note [code = 06648-4] Goal Plan of Care Note [code = 99973-8] Goal Plan of Care Note [code = 74689-8] Goal Plan of Care Note [code = 81814-7] Goal Plan of Care Note [code = 59366-6] Goal Plan of Care Note [code = 87278-0] Goal Plan of Care Note [code = 68403-7] Goal Plan of Care Note [code = 23881-3] Goal Plan of Care Note [code = 60854-3] Goal Plan of Care Note [code = 99182-8] Goal Plan of Care Note [code = 54241-1] Encounters Start Date/Time End Date/Time Encounter Type Admission Type Attending [facility] Facility Care Department Encounter ID Source 2021-04-30 13:01:21 Outpatient CORY RODRIGUEZ [facility] [id number] [facility] 2024-06-30 09:50:08 2024-06-30 09:50:08 Outpatient YOLANDA [facility] [id number] Hipolito Daly 2024-06-25 11:18:03 2024-06-25 11:18:03 Outpatient YOLANDA [facility] [id number] Hipolito Daly 2024-06-06 14:48:45 2024-06-06 14:48:45 Outpatient SFA SFA [id number] Hipolito Daly 2024-06-05 09:53:04 2024-06-05 09:53:04 Outpatient SFA SFA [id number] Hipolito Daly 2024-05-15 14:46:03 2024-05-15 14:46:03 Outpatient SFA SFA [id number] Hipolito Daly 2024-05-15 00:00:00 2024-05-15 00:00:00 Outpatient Visit SFA [id number] Hipolito Daly 2024-04-17 11:37:54 2024-04-17 11:37:54 Outpatient SFA SFA [id number] Hipolito Daly 2024-04-10 17:18:23 2024-04-10 17:18:23 Outpatient SFA SFA [id number] Hipolito Daly 2024-04-10 00:00:00 2024-04-10 00:00:00 Outpatient Visit SFA [id number] Hipolito Daly 2024-03-20 10:08:05 2024-03-20 10:08:05 Outpatient SFA SFA [id number] Hipolito Daly 2024-03-09 15:07:21 2024-03-09 15:07:21 Outpatient SFA SFA [id number] Hipolito Daly 2024-03-09 00:00:00 2024-03-09 00:00:00 Outpatient Visit SFA [id number] Hipolito Daly 2024-03-01 13:53:54 2024-03-01 13:53:54 Outpatient SFA SFA [id number] Hipolito Daly 2024-03-01 00:00:00 2024-03-01 00:00:00 Outpatient Visit SFA [id number] Hipolito Daly 2024-02-13 14:49:03 2024-02-13 14:49:03 Outpatient SFA SFA [id number] Hipolito Daly 2024-01-16 14:52:28 2024-01-16 14:52:28 Outpatient SFA SFA [id number] Hipolito Daly 2023-12-19 16:24:33 2023-12-19 16:24:33 Outpatient SFA SFA [id number] Hipolito Power Addy 2023-12-05 11:50:52 2023-12-05 11:50:52 Outpatient SFA SFA [id number] Hipolito Daly 2023-12-05 00:00:00 2023-12-05 00:00:00 Outpatient Visit SFA [id number] Hipolito Daly 2023-11-18 15:12:05 2023-11-18 15:12:05 Outpatient SFA SFA [id number] Hipolito Power Addy 2023-10-27 15:16:19 2023-10-27 15:16:19 Outpatient SFA SFA [id number] Hipolito Power Addy 2023-09-27 14:31:59 2023-09-27 14:31:59 Outpatient SFA SFA [id number] Hipolito Power Addy 2023-08-30 14:04:03 2023-08-30 14:04:03 Outpatient SFA SFA [id number] Hipolito Power Addy 2023-08-09 15:22:39 2023-08-09 15:22:39 Outpatient SFA SFA [id number] Hipolito Power Addy 2023-08-05 14:01:58 2023-08-05 14:01:58 Outpatient SFA SFA [id number] Hipolito Power Addy 2023-07-22 09:20:47 2023-07-22 09:20:47 Outpatient SFA SFA [id number] Hipolito Power Addy 2023-07-21 15:44:24 2023-07-21 15:44:24 Outpatient SFA SFA [id number] Hipolito Power Addy 2023-05-13 14:18:07 2023-05-13 14:18:07 Outpatient SFA SFA [id number] Hipolito Daly 2023-04-30 00:00:00 2023-04-30 00:00:00 Outpatient GC_GCBZW_Ka diyala_S PRIV PRIV [id number] [facility] 2023-04-29 00:00:00 2023-04-29 00:00:00 Outpatient GC_GCBZW_Ka diyala_S PRIV PRIV [id number] [facility] 2023-04-22 09:27:33 2023-04-22 09:27:33 Outpatient SFA SFA [id number] Hipolito Daly 2023-01-07 14:24:57 2023-01-07 14:24:57 Outpatient SFA SFA [id number] Hipolito Daly 2022-12-10 14:22:50 2022-12-10 14:22:50 Outpatient SFA SFA [id number] Hipolito Daly 2022-09-09 17:27:41 2022-09-09 17:27:41 Outpatient SFA SFA [id number] Hipolito Daly 2022-06-11 14:39:02 2022-06-11 14:39:02 Outpatient SFA SFA [id number] Hipolito Daly 2022-04-19 14:24:11 2022-04-19 14:24:11 Outpatient SFA SFA [id number] Hipolito Daly 2022-02-12 00:00:00 2022-02-12 00:00:00 Outpatient Visit [id number] 2022-01-13 00:00:00 2022-01-13 00:00:00 Outpatient Visit [id number] 2022-01-12 00:00:00 2022-01-12 00:00:00 Outpatient Visit [id number] 2021-12-31 00:00:00 2021-12-31 00:00:00 Outpatient Visit [id number] 2021-06-23 00:00:00 2021-06-23 00:00:00 Patient Secure Msg Doctor Unassigned, [place] [facility] 1..840.114 350.1.13.10 4.2.7.2.[id number] [facility] 2021-06-18 00:00:00 2021-06-18 00:00:00 Patient Secure Msg Doctor Unassigned, [place] [facility] 1..840.114 350.1.13.10 4.2.7.2.[id number] [facility] 2021-06-17 00:00:00 2021-06-17 00:00:00 Case Management Cassie Mcgraw [facility] 1..840.114 350.1.13.10 4.2.7.2.[id number] [facility] 2021-06-16 10:30:00 2021-06-16 10:59:21 Outpatient R CASSIE MCGRAW [facility] [id number] [facility] 2021-06-16 10:24:50 2021-06-16 10:59:21 Office Visit Cassie Mcgraw [facility] 1..840.114 350.1.13.10 4.2.7.2.[id number] [facility] 2021-06-16 10:30:00 2021-06-16 10:30:00 Outpatient CASSIE ALAMO [facility] [id number] [facility] 2021-06-16 00:00:00 2021-06-16 00:00:00 Orders Only Doctor Unassigned, [place] [facility] 1.2840.114 350.1.13.10 4.2.7.2.[id number] [facility] 2020-09-18 00:00:00 2020-09-18 00:00:00 Patient Outreach Trevon Lopez [facility] 1.2.840.114 350.1.13.10 4.2.7.2.[id number] [facility] 2020-08-05 14:15:00 2020-08-05 14:15:00 Outpatient CORY RODRIGUEZ [facility] [id number] [facility] 2020-06-16 11:30:37 2020-06-16 11:45:37 Core Winding Operator Visit 2, Adc Lab Mervin [facility] 1.2.840.114 350.1.13.10 4.2.7.2.[id number] [facility] 2020-06-16 10:27:51 2020-06-16 10:57:51 Office Visit Cassie Mcgraw [facility] 1.2.840.114 350.1.13.10 4.2.7.2.[id number] [facility] 2020-06-16 10:30:00 2020-06-16 10:30:00 Outpatient Jailene MCGRAW [facility] [id number] [facility] 2019-11-16 00:00:00 2019-11-16 00:00:00 Telephone Cassie Mcgraw [facility] 1.2.840.114 350.1.13.10 4.2.7.2.[id number] [facility] 2019-11-15 00:00:00 2019-11-15 00:00:00 Case Management Cassie Mcgraw [facility] 1.2.840.114 350.1.13.10 4.2.7.2.[id number] [facility] 2019-11-12 10:18:52 2019-11-12 11:20:52 Office Visit Cassie Mcgraw [facility] 1.2.840.114 350.1.13.10 4.2.7.2.[id number] [facility] 2019-11-12 10:30:00 2019-11-12 10:30:00 Outpatient R KADENJOSE [facility] [id number] [facility] 2019-11-07 14:15:00 2019-11-07 14:15:00 Outpatient R CASSIE MCGRAW [facility] [id number] [facility] 2019-11-06 14:00:00 2019-11-06 14:00:00 Outpatient R LAYLA ARMSTRONG [facility] [id number] [facility] 2019-11-06 07:37:59 2019-11-06 08:07:59 Telemedici ne Visit Layla Armstrong [facility] 1.2.840.114 350.1.13.10 4.2.7.2.[id number] [facility] 2019-11-05 08:48:17 2019-11-05 09:03:17 Core Winding Operator Visit 2, Adc Lab Cassie Mcgraw [facility] 1.2.840.114 350.1.13.10 4.2.7.2.[id number] [facility] 2019-11-05 08:45:00 2019-11-05 08:45:00 Outpatient CASSIE ALAMO [facility] [id number] [facility] 2019-11-05 00:00:00 2019-11-05 00:00:00 Orders Only Doctor Unassigned, [place] [facility] 1.2840.114 350.1.13.10 4.2.7.2.[id number] [facility] 2019-11-02 00:00:00 2019-11-02 00:00:00 Telephone Cassie Mcgraw [facility] 1.2840.114 350.1.13.10 4.2.7.2.[id number] [facility] 2019-08-07 10:49:20 2019-08-07 23:59:00 Outpatient [facility] [id number] [facility] 2019-08-07 10:49:00 2019-08-07 23:59:00 Hospital Encounter Cassie Mcgraw [facility] 1.284.114 350.1.13.10 4.2.7.2.[id number] [facility] 2019-07-27 13:19:56 2019-07-27 23:59:00 Hospital Encounter Josué Autumn Bell [facility] 1.84.114 350.1.13.10 4.2.7.2.[id number] [facility] 2019-07-27 13:14:00 2019-07-27 13:14:00 Emergency [facility] MAG[facility] [id number] [facility] 2019-07-27 13:14:00 2019-07-27 13:14:00 Emergency 1 Gt Frazier [facility] [id number] [facility] 2019-07-27 00:00:00 2019-07-27 00:00:00 Outpatient AUTUMN PETIT [facility] NUT [id number] [facility] 2019-07-27 00:00:00 2019-07-27 00:00:00 Orders Only Doctor Unassigned, [place] [facility] 1.2.840.114 350.1.13.10 4.2.7.2.[id number] [facility] 2019-07-26 14:00:00 2019-07-26 14:00:00 Outpatient CORY RODRIGUEZ [facility] [id number] [facility] 2019-07-25 11:00:00 2019-07-25 13:06:10 Outpatient KRISTIN GAY [facility] [id number] [facility] 2019-07-25 11:06:48 2019-07-25 11:21:48 Office Visit Kristin Stroud [facility] 1.2.840.114 350.1.13.10 4.2.7.2.[id number] [facility] 2019-07-25 00:00:00 2019-07-25 00:00:00 Telephone Kristin Stroud [facility] 1.2.840.114 350.1.13.10 4.2.7.2.[id number] [facility] 2019-07-25 00:00:00 2019-07-25 00:00:00 Prep For Surgery Kristin Stroud [facility] 1.2.840.114 350.1.13.10 4.2.7.2.[id number] [facility] 2019-06-22 11:05:54 2019-06-22 11:05:00 Outpatient CASSIE ALAMO [facility] [id number] [facility] 2019-06-14 11:30:00 2019-06-14 11:30:00 Outpatient [facility] [place] [id number] [facility] 2019-03-08 12:54:36 2019-03-08 23:59:00 Hospital Encounter Autumn [facility] [id number] [facility] Results Test Description Test Time Test Comments Results Result Co mments Source HEMOGLOBIN [id number] 00:00:00* Test Item Value Reference Range Interpretation Comme nts HEMOGLOBIN A1c (test code = 45236) 6.3 % Hipolito Power AustinHEMOGLOBIN [id number] 00:00:00* Test Item Value Reference Range Interpretation Comme nts HEMOGLOBIN A1c (test code = 96435) 6.3 % Hipolito DalyCBC W/AUTO DIFF WITH [id number] 09:21:30* Test Item Value Reference Range Interpretation Comme nts WBC (test code = 1001) 9.4 K/UL 3.5-11.0 RBC (test code = 1002) 4.13 M/UL 3.80-5.40 HEMOGLOBIN (test code = 1003) 13.4 G/DL 11.5-15.5 HEMATOCRIT (test code = 1004) 39.8 % 34.0-45.0 MCV (test code = 1005) 96.4 fL 80.0-99.0 MCH (test code = 1006) 32.4 PG 25.0-33.0 MCHC (test code = 1007) 33.7 G/DL 31.0-36.0 RDW (test code = 1038) 12.5 % 11.5-15.0 NEUTROPHILS (test code = 1008) 58.4 % LYMPHOCYTES (test code = 1010) 34.0 % MONOCYTES (test code = 1011) 5.2 % EOSINOPHILS (test code = 1012) 1.5 % BASOPHILS (test code = 1013) 0.6 % IMMATURE GRANULOCYTES (test code = 1036) 0.3 % NUCLEATED RBCS (test code = 1065) 0.0 /100 WBC'S See_Comment [Automated Android App Review Sourcea ge] The system which generated this result transmitted reference range: 0.0. The reference range was not used to interpret this result as normal/abnormal. PLATELET COUNT (test code = 1015) 395 K/UL 130-400 ABSOLUTE NEUTROPHILS (test code = 1066) 5.51 K/UL 1.50-7.50 ABSOLUTE LYMPHOCYTES (test code = 1067) 3.21 K/UL 1.00-4.00 ABSOLUTE MONOCYTES (test code = 1068) 0.49 K/UL 0.20-1.00 ABSOLUTE EOSINOPHILS (test code = 1040) 0.14 K/UL 0.00-0.50 ABSOLUTE BASOPHILS (test code = 1069) 0.06 K/UL 0.00-0.20 ABS IMMATURE GRANULOCYTES (test code = 1020) 0.03 K/UL 0.00-0.10 ABS NUCLEATED RBCS (test code = 77454) 0.00 K/UL 0.00-0.11 HEPATITIS PANEL, [id number] 06:23:55* Test Item Value Reference Range Interpretation Comments HEPATITIS A TOTAL AB (test code = 2725) REACTIVE NON-REACTIVE A HEPATITIS B SURF AG (test code = 2739) NON-REACTIVE NON-REACTIVE HEP B CORE TOTAL AB (test code = 2729) NON-REACTIVE NON-REACTIVE HEPATITIS B SURFACE AB (test code = 2737) NON-REACTIVE NON-REACTIVE HEPATITIS C ANTIBODY (test code = 4675) NON-REACTIVE NON-REACTIVE INTERPRETATION HEPATITIS A: (test code = 2552) (NOTE) Hepatitis A sero logy consistent with past exposure or previousvaccination to hepatitis A virus. No evidence of current acutehepatitis A infection. INTERPRETATION HEPATITIS B: (test code = 33365) (NOTE) Hepatitis B sero logy shows no evidence of past exposure to orcurrent infection with hepatitis B virus. No evidence of hepatitis Bimmunization is identified. INTERPRETATION HEPATITIS C: (test code = 46326) (NOTE) Hepatitis C sero logy shows no evidence of exposure to hepatitisC virus at this time. It can take up to 12 months after exposure tothe hepatitis C virus for antibodies to become detectable in the blood in certain patients. HIV 1/2 4TH GEN, RFLX [id number] 06:23:55* Test Item Value Reference Range Interpretation Comme nts HIV 1/2 4TH GEN, RFLX CONF ( test code = 3514) NON-REACTIVE NON-REACTIVE HEPATITIS A [id number] 06:23:55* Test Item Value Reference Range Interpretation Comme nts HEPATITIS A IgM (test code = 2728) NON-REACTIVE NON-REACTIVE UNLESS OTHERW ISE INDICATED, ALL TESTING PERFORMED AT [facility] [address] [place] [id number] SKEIN DYER: SILVESTRE NOLASCO M.D. CLIA NUMBER [id number] [facility] [place]. [id number] COMPREHENSIVE METABOLIC [id number] 05:51:58* Test Item Value Reference Range Interpretation Comme nts GLUCOSE (test code = 2217) 92 MG/DL 70-99 BUN (test code = 220) 8 MG/DL 6-20 CREATININE (test code = 221) 0.87 MG/DL 0.60-1.30 eGFR (2020 CKD-EPI) (test co de = 06749) 81 ML/MIN/1.73 >60 CALC BUN/CREAT (test code = 2235) 9 RATIO 6-28 SODIUM (test code = 223) 139 MEQ/L 133-146 POTASSIUM (test code = 2228) 4.7 MEQ/L 3.5-5.4 CHLORIDE (test code = 2215) 101 MEQ/L 95-107 CARBON DIOXIDE (test code = 2206) 24 MEQ/L 19-31 CALCIUM (test code = 2209) 9.5 MG/DL 8.5-10.5 PROTEIN, TOTAL (test code = 2229) 7.3 G/DL 6.1-8.3 ALBUMIN (test code = 2201) 4.5 G/DL 3.5-5.2 CALC GLOBULIN (test code = 2240) 2.8 G/DL 1.9-3.7 CALC A/G RATIO (test code = 2234) 1.6 RATIO 1.0-2.6 BILIRUBIN, TOTAL (test code = 2207) 0.3 MG/DL <=1.2 ALKALINE PHOSPHATASE (test code = 2204) 139 U/L 40-128 H AST (test code = 2218) 16 U/L 9-40 ALT (test code = 2219) 16 U/L 5-40 LIPID [id number] 05:51:58* Test Item Value Reference Range Interpretation Comme nts CHOLESTEROL (test code = 2210) 124 MG/DL <200 TRIGLYCERIDES (test code = 2232) 171 MG/DL <150 H HDL CHOLESTEROL (test code = 2220) 42 MG/DL >39 CALC LDL CHOL (test code = 2237) 57 MG/DL <100 NOTE: CALCULATED LDL IS BASED ON IDRIS-LAO METHOD WHICHINCLUDES ADJUSTABLE TRIGLYCERIDE:VLDL CHOLESTEROL RATIO.THIS FACTOR VARIES BY MEASURED TRIGLYCERIDE AND NON-HDLCHOLESTEROL CONCENTRATIONS WITH INCREASED CALCULATED LDL SEENIN HIGHER TRIGLYCERIDE OR LOWER NON-HDL SPECIMENS. FOR MOREINFORMATION, SEE CLIENT ANNOUNCEMENT AT [email or web address] RISK RATIO LDL/HDL (test code = 2238) 1.36 RATIO <3.22 HEPATITIS PROFILE (A,B,C)2024-03-10 00:00:00* Test Item Value Reference Range Interpretation Comme nts HEPATITIS A TOTAL AB (test c ode = 2725) REACTIVE HEPATITIS B SURF AG (test co de = 2739) NON-REACTIVE HEP B CORE TOTAL AB (test co de = 2729) NON-REACTIVE HEPATITIS B SURFACE AB (test code = 2737) NON-REACTIVE HEPATITIS C ANTIBODY (test c ode = 4675) NON-REACTIVE INTERPRETATION HEPATITIS A: (test code = 2552) (NOTE) INTERPRETATION HEPATITIS B: (test code = 73454) (NOTE) INTERPRETATION HEPATITIS C: (test code = 60419) (NOTE) Hipolito DalyHIV 1/2 4TH GEN, RFLX [id number] 00:00:00* Test Item Value Reference Range Interpretation Comme nts HIV 1/2 4TH GEN, RFLX CONF ( test code = 3514) NON-REACTIVE Hipolito DalyCBC W/AUTO [id number] 00:00:00* Test Item Value Reference Range Interpretation Comme nts WBC (test code = 1001) 9.4 K/UL RBC (test code = 1002) 4.13 M/UL HEMOGLOBIN (test code = 1003) 13.4 G/DL HEMATOCRIT (test code = 1004) 39.8 % MCV (test code = 1005) 96.4 fL MCH (test code = 1006) 32.4 PG MCHC (test code = 1007) 33.7 G/DL RDW (test code = 1038) 12.5 % NEUTROPHILS (test code = 1008) 58.4 % LYMPHOCYTES (test code = 1010) 34.0 % MONOCYTES (test code = 1011) 5.2 % EOSINOPHILS (test code = 1012) 1.5 % BASOPHILS (test code = 1013) 0.6 % IMMATURE GRANULOCYTES (test code = 1036) 0.3 % NUCLEATED RBCS (test code = 1065) 0.0 /100WBC'S PLATELET COUNT (test code = 1015) 395 K/UL ABSOLUTE NEUTROPHILS (test c ode = 1066) 5.51 K/UL ABSOLUTE LYMPHOCYTES (test c ode = 1067) 3.21 K/UL ABSOLUTE MONOCYTES (test cod e = 1068) 0.49 K/UL ABSOLUTE EOSINOPHILS (test c ode = 1040) 0.14 K/UL ABSOLUTE BASOPHILS (test cod e = 1069) 0.06 K/UL ABS IMMATURE GRANULOCYTES (t est code = 1020) 0.03 K/UL ABS NUCLEATED RBCS (test cod e = 29821) 0.00 K/UL Hipolito DalyCOMPREHENSIVE METABOLIC [id number] 00:00:00* Test Item Value Reference Range Interpretation Comme nts GLUCOSE (test code = 2217) 92 MG/DL BUN (test code = 2208) 8 MG/DL CREATININE (test code = 2214) 0.87 MG/DL eGFR (2020 CKD-EPI) (test co de = 75017) 81 ML/MIN/1.73 CALC BUN/CREAT (test code = 2235) 9 RATIO SODIUM (test code = 2231) 139 MEQ/L POTASSIUM (test code = 2228) 4.7 MEQ/L CHLORIDE (test code = 2215) 101 MEQ/L CARBON DIOXIDE (test code = 2206) 24 MEQ/L CALCIUM (test code = 2209) 9.5 MG/DL PROTEIN, TOTAL (test code = 2229) 7.3 G/DL ALBUMIN (test code = 2201) 4.5 G/DL CALC GLOBULIN (test code = 2240) 2.8 G/DL CALC A/G RATIO (test code = 2234) 1.6 RATIO BILIRUBIN, TOTAL (test code = 2207) 0.3 MG/DL ALKALINE PHOSPHATASE (test code = 2204) 139 U/L AST (test code = 2218) 16 U/L ALT (test code = 2219) 16 U/L Hipolito DalyLIPID [id number] 00:00:00* Test Item Value Reference Range Interpretation Comme nts CHOLESTEROL (test code = 2210) 124 MG/DL TRIGLYCERIDES (test code = 2232) 171 MG/DL HDL CHOLESTEROL (test code = 2220) 42 MG/DL CALC LDL CHOL (test code = 2237) 57 MG/DL RISK RATIO LDL/HDL (test cod e = 2238) 1.36 RATIO Hipolito DalyHEPATITIS A IgM [REFLEX]2024-03-10 00:00:00* Test Item Value Reference Range Interpretation Comme nts HEPATITIS A IgM (test code = 2728) NON-REACTIVE Hipolito DalyHEPATITIS PROFILE (A,B,C)2024-03-10 00:00:00* Test Item Value Reference Range Interpretation Comme nts HEPATITIS A TOTAL AB (test c ode = 2725) REACTIVE HEPATITIS B SURF AG (test co de = 2739) NON-REACTIVE HEP B CORE TOTAL AB (test co de = 2729) NON-REACTIVE HEPATITIS B SURFACE AB (test code = 2737) NON-REACTIVE HEPATITIS C ANTIBODY (test c ode = 4675) NON-REACTIVE INTERPRETATION HEPATITIS A: (test code = 2552) (NOTE) INTERPRETATION HEPATITIS B: (test code = 34678) (NOTE) INTERPRETATION HEPATITIS C: (test code = 51228) (NOTE) Hipolito Power AustinHIV 1/2 4TH GEN, RFLX [id number] 00:00:00* Test Item Value Reference Range Interpretation Comme nts HIV 1/2 4TH GEN, RFLX CONF ( test code = 3514) NON-REACTIVE Hipolito DalyCBC W/AUTO [id number] 00:00:00* Test Item Value Reference Range Interpretation Comme nts WBC (test code = 1001) 9.4 K/UL RBC (test code = 1002) 4.13 M/UL HEMOGLOBIN (test code = 1003) 13.4 G/DL HEMATOCRIT (test code = 1004) 39.8 % MCV (test code = 1005) 96.4 fL MCH (test code = 1006) 32.4 PG MCHC (test code = 1007) 33.7 G/DL RDW (test code = 1038) 12.5 % NEUTROPHILS (test code = 1008) 58.4 % LYMPHOCYTES (test code = 1010) 34.0 % MONOCYTES (test code = 1011) 5.2 % EOSINOPHILS (test code = 1012) 1.5 % BASOPHILS (test code = 1013) 0.6 % IMMATURE GRANULOCYTES (test code = 1036) 0.3 % NUCLEATED RBCS (test code = 1065) 0.0 /100WBC'S PLATELET COUNT (test code = 1015) 395 K/UL ABSOLUTE NEUTROPHILS (test c ode = 1066) 5.51 K/UL ABSOLUTE LYMPHOCYTES (test c ode = 1067) 3.21 K/UL ABSOLUTE MONOCYTES (test cod e = 1068) 0.49 K/UL ABSOLUTE EOSINOPHILS (test c ode = 1040) 0.14 K/UL ABSOLUTE BASOPHILS (test cod e = 1069) 0.06 K/UL ABS IMMATURE GRANULOCYTES (t est code = 1020) 0.03 K/UL ABS NUCLEATED RBCS (test cod e = 40315) 0.00 K/UL Hipolito DalyCOMPREHENSIVE METABOLIC [id number] 00:00:00* Test Item Value Reference Range Interpretation Comme nts GLUCOSE (test code = 2217) 92 MG/DL BUN (test code = 2208) 8 MG/DL CREATININE (test code = 2214) 0.87 MG/DL eGFR (2020 CKD-EPI) (test co de = 65844) 81 ML/MIN/1.73 CALC BUN/CREAT (test code = 2235) 9 RATIO SODIUM (test code = 2231) 139 MEQ/L POTASSIUM (test code = 2228) 4.7 MEQ/L CHLORIDE (test code = 2215) 101 MEQ/L CARBON DIOXIDE (test code = 2206) 24 MEQ/L CALCIUM (test code = 2209) 9.5 MG/DL PROTEIN, TOTAL (test code = 2229) 7.3 G/DL ALBUMIN (test code = 2201) 4.5 G/DL CALC GLOBULIN (test code = 2240) 2.8 G/DL CALC A/G RATIO (test code = 2234) 1.6 RATIO BILIRUBIN, TOTAL (test code = 2207) 0.3 MG/DL ALKALINE PHOSPHATASE (test code = 2204) 139 U/L AST (test code = 2218) 16 U/L ALT (test code = 2219) 16 U/L Hipolito Jannet AddyLIPID [id number] 00:00:00* Test Item Value Reference Range Interpretation Comme nts CHOLESTEROL (test code = 2210) 124 MG/DL TRIGLYCERIDES (test code = 2232) 171 MG/DL HDL CHOLESTEROL (test code = 2220) 42 MG/DL CALC LDL CHOL (test code = 2237) 57 MG/DL RISK RATIO LDL/HDL (test cod e = 2238) 1.36 RATIO Hipolito DalyHEPATITIS A IgM [REFLEX]2024-03-10 00:00:00* Test Item Value Reference Range Interpretation Comme nts HEPATITIS A IgM (test code = 2728) NON-REACTIVE Hipolito DalyCOMPREHENSIVE METABOLIC [id number] 05:13:29* Test Item Value Reference Range Interpretation Comme nts GLUCOSE (test code = 2217) 101 MG/DL 70-99 H BUN (test code = 2207) 10 MG/DL 6-20 CREATININE (test code = 2214) 0.84 MG/DL 0.60-1.30 eGFR (2020 CKD-EPI) (test co de = 72639) 85 ML/MIN/1.73 >60 CALC BUN/CREAT (test code = 2235) 12 RATIO 6-28 SODIUM (test code = 2231) 138 MEQ/L 133-146 POTASSIUM (test code = 2228) 4.9 MEQ/L 3.5-5.4 CHLORIDE (test code = 2215) 100 MEQ/L 95-107 CARBON DIOXIDE (test code = 2206) 25 MEQ/L 19-31 CALCIUM (test code = 2209) 9.3 MG/DL 8.5-10.5 PROTEIN, TOTAL (test code = 2229) 6.9 G/DL 6.1-8.3 ALBUMIN (test code = 2201) 4.7 G/DL 3.5-5.2 CALC GLOBULIN (test code = 2240) 2.2 G/DL 1.9-3.7 CALC A/G RATIO (test code = 2234) 2.1 RATIO 1.0-2.6 BILIRUBIN, TOTAL (test code = 2207) <0.2 MG/DL <=1.2 ALKALINE PHOSPHATASE (test code = 2204) 127 U/L 40-125 H AST (test code = 2218) 18 U/L 9-40 ALT (test code = 2219) 23 U/L 5-40 LIPID [id number] 05:13:29* Test Item Value Reference Range Interpretation [...] SPECIMENS. FOR MOREINFORMATION, SEE CLIENT ANNOUNCEMENT AT [email or web address] RISK RATIO LDL/HDL (test code = 2238) 1.62 RATIO <3.22 UNABLE TO ARASH CULATE HEMOGLOBIN [id number] 02:41:49* Test Item Value Reference Range Interpretation Comme nts HEMOGLOBIN A1c (test code = 43222) 6.1 % 4.2-5.6 H [employer] GUIDELINES FOR HGB A1C: [...] TESTING PERFORMED AT [facility] [address] [place] [address] SKEIN DYER: SILVESTRE NOLASCO M.D. CLIA NUMBER [id number] [facility] [place]. [id number] HEMOGLOBIN [id number] 00:00:00* Test Item Value Reference Range Interpretation Comme nts HEMOGLOBIN A1c (test code = 61545) 6.1 % Hipolito DalyCOMPREHENSIVE METABOLIC [id number] 00:00:00* Test Item Value Reference Range Interpretation Comme nts GLUCOSE (test code = 2217) 101 MG/DL BUN (test code = 2208) 10 MG/DL CREATININE (test code = 2214) 0.84 MG/DL eGFR (2020 CKD-EPI) (test co de = 96017) 85 ML/MIN/1.73 CALC BUN/CREAT (test code = 2235) 12 RATIO SODIUM (test code = 2231) 138 MEQ/L POTASSIUM (test code = 2228) 4.9 MEQ/L CHLORIDE (test code = 2215) 100 MEQ/L CARBON DIOXIDE (test code = 2206) 25 MEQ/L CALCIUM (test code = 2209) 9.3 MG/DL PROTEIN, TOTAL (test code = 2229) 6.9 G/DL ALBUMIN (test code = 2201) 4.7 G/DL CALC GLOBULIN (test code = 2240) 2.2 G/DL CALC A/G RATIO (test code = 2234) 2.1 RATIO BILIRUBIN, TOTAL (test code = 2207) <0.2 MG/DL ALKALINE PHOSPHATASE (test code = 2204) 127 U/L AST (test code = 2218) 18 U/L ALT (test code = 2219) 23 U/L Hipolito DalyLIPID [id number] 00:00:00* Test Item Value Reference Range Interpretation Comme nts CHOLESTEROL (test code = 2210) 146 MG/DL TRIGLYCERIDES (test code = 2232) 146 MG/DL HDL CHOLESTEROL (test code = 2220) 47 MG/DL CALC LDL CHOL (test code = 2237) 76 MG/DL RISK RATIO LDL/HDL (test cod e = 2238) 1.62 RATIO Hipolito DalyHEMOGLOBIN [id number] 00:00:00* Test Item Value Reference Range Interpretation Comme nts HEMOGLOBIN A1c (test code = 63627) 6.1 % Hipolito DalyCOMPREHENSIVE METABOLIC [id number] 00:00:00* Test Item Value Reference Range Interpretation Comme nts GLUCOSE (test code = 2217) 101 MG/DL BUN (test code = 2208) 10 MG/DL CREATININE (test code = 2214) 0.84 MG/DL eGFR (2020 CKD-EPI) (test co de = 74142) 85 ML/MIN/1.73 CALC BUN/CREAT (test code = 2235) 12 RATIO SODIUM (test code = 2231) 138 MEQ/L POTASSIUM (test code = 2228) 4.9 MEQ/L CHLORIDE (test code = 2215) 100 MEQ/L CARBON DIOXIDE (test code = 2206) 25 MEQ/L CALCIUM (test code = 2209) 9.3 MG/DL PROTEIN, TOTAL (test code = 2229) 6.9 G/DL ALBUMIN (test code = 2201) 4.7 G/DL CALC GLOBULIN (test code = 2240) 2.2 G/DL CALC A/G RATIO (test code = 2234) 2.1 RATIO BILIRUBIN, TOTAL (test code = 2207) <0.2 MG/DL ALKALINE PHOSPHATASE (test code = 2204) 127 U/L AST (test code = 2218) 18 U/L ALT (test code = 2219) 23 U/L Hipolito DalyLIPID [id number] 00:00:00* Test Item Value Reference Range Interpretation Comme nts CHOLESTEROL (test code = 2210) 146 MG/DL TRIGLYCERIDES (test code = 2232) 146 MG/DL HDL CHOLESTEROL (test code = 2220) 47 MG/DL CALC LDL CHOL (test code = 2237) 76 MG/DL RISK RATIO LDL/HDL (test cod e = 2238) 1.62 RATIO Hipolito DalyHEMOGLOBIN [id number] 00:00:00* Test Item Value Reference Range Interpretation Comme nts HEMOGLOBIN A1c (test code = 84096) 6.1 % Hipolito DalyCOMPREHENSIVE METABOLIC [id number] 00:00:00* Test Item Value Reference Range Interpretation Comme nts GLUCOSE (test code = 2217) 101 MG/DL BUN (test code = 2208) 10 MG/DL CREATININE (test code = 2214) 0.84 MG/DL eGFR (2020 CKD-EPI) (test co de = 24722) 85 ML/MIN/1.73 CALC BUN/CREAT (test code = 2235) 12 RATIO SODIUM (test code = 2231) 138 MEQ/L POTASSIUM (test code = 2228) 4.9 MEQ/L CHLORIDE (test code = 2215) 100 MEQ/L CARBON DIOXIDE (test code = 2206) 25 MEQ/L CALCIUM (test code = 2209) 9.3 MG/DL PROTEIN, TOTAL (test code = 2229) 6.9 G/DL ALBUMIN (test code = 2201) 4.7 G/DL CALC GLOBULIN (test code = 2240) 2.2 G/DL CALC A/G RATIO (test code = 2234) 2.1 RATIO BILIRUBIN, TOTAL (test code = 2207) <0.2 MG/DL ALKALINE PHOSPHATASE (test code = 2204) 127 U/L AST (test code = 2218) 18 U/L ALT (test code = 2219) 23 U/L Hipolito DalyLIPID [id number] 00:00:00* Test Item Value Reference Range Interpretation Comme nts CHOLESTEROL (test code = 2210) 146 MG/DL TRIGLYCERIDES (test code = 2232) 146 MG/DL HDL CHOLESTEROL (test code = 2220) 47 MG/DL CALC LDL CHOL (test code = 2237) 76 MG/DL RISK RATIO LDL/HDL (test cod e = 2238) 1.62 RATIO Hipolito DalyHEMOGLOBIN [id number] 00:00:00* Test Item Value Reference Range Interpretation Comme nts HEMOGLOBIN A1c (test code = 08732) 6.1 % Hipolito DalyCOMPREHENSIVE METABOLIC [id number] 00:00:00* Test Item Value Reference Range Interpretation Comme nts GLUCOSE (test code = 2217) 101 MG/DL BUN (test code = 2208) 10 MG/DL CREATININE (test code = 2214) 0.84 MG/DL eGFR (2020 CKD-EPI) (test co de = 12259) 85 ML/MIN/1.73 CALC BUN/CREAT (test code = 2235) 12 RATIO SODIUM (test code = 2231) 138 MEQ/L POTASSIUM (test code = 2228) 4.9 MEQ/L CHLORIDE (test code = 2215) 100 MEQ/L CARBON DIOXIDE (test code = 2206) 25 MEQ/L CALCIUM (test code = 2209) 9.3 MG/DL PROTEIN, TOTAL (test code = 2229) 6.9 G/DL ALBUMIN (test code = 2201) 4.7 G/DL CALC GLOBULIN (test code = 2240) 2.2 G/DL CALC A/G RATIO (test code = 2234) 2.1 RATIO BILIRUBIN, TOTAL (test code = 2207) <0.2 MG/DL ALKALINE PHOSPHATASE (test code = 2204) 127 U/L AST (test code = 2218) 18 U/L ALT (test code = 2219) 23 U/L Hipolito Power AustinLIPID [id number] 00:00:00* Test Item Value Reference Range Interpretation Comme nts CHOLESTEROL (test code = 2210) 146 MG/DL TRIGLYCERIDES (test code = 2232) 146 MG/DL HDL CHOLESTEROL (test code = 2220) 47 MG/DL CALC LDL CHOL (test code = 2237) 76 MG/DL RISK RATIO LDL/HDL (test cod e = 2238) 1.62 RATIO Hipolito DalyHEMOGLOBIN [id number] 00:00:00* Test Item Value Reference Range Interpretation Comme nts HEMOGLOBIN A1c (test code = 80870) 6.1 % Hipolito DalyCOMPREHENSIVE METABOLIC [id number] 00:00:00* Test Item Value Reference Range Interpretation Comme nts GLUCOSE (test code = 2217) 101 MG/DL BUN (test code = 2208) 10 MG/DL CREATININE (test code = 2214) 0.84 MG/DL eGFR (2020 CKD-EPI) (test co de = 72570) 85 ML/MIN/1.73 CALC BUN/CREAT (test code = 2235) 12 RATIO SODIUM (test code = 2231) 138 MEQ/L POTASSIUM (test code = 2228) 4.9 MEQ/L CHLORIDE (test code = 2215) 100 MEQ/L CARBON DIOXIDE (test code = 2206) 25 MEQ/L CALCIUM (test code = 2209) 9.3 MG/DL PROTEIN, TOTAL (test code = 2229) 6.9 G/DL ALBUMIN (test code = 2201) 4.7 G/DL CALC GLOBULIN (test code = 2240) 2.2 G/DL CALC A/G RATIO (test code = 2234) 2.1 RATIO BILIRUBIN, TOTAL (test code = 2207) <0.2 MG/DL ALKALINE PHOSPHATASE (test code = 2204) 127 U/L AST (test code = 2218) 18 U/L ALT (test code = 2219) 23 U/L Hipolito DalyLIPID [id number] 00:00:00* Test Item Value Reference Range Interpretation Comme nts CHOLESTEROL (test code = 2210) 146 MG/DL TRIGLYCERIDES (test code = 2232) 146 MG/DL HDL CHOLESTEROL (test code = 2220) 47 MG/DL CALC LDL CHOL (test code = 2237) 76 MG/DL RISK RATIO LDL/HDL (test cod e = 2238) 1.62 RATIO Hipolito F AustinVITAMIN D, 25 [id number] 07:19:40* Test Item Value Reference Range Interpretation Comme [facility] VITAMIN D, 25 OH (test code = [...] TESTING PERFORMED AT [facility] [address] [place] [address] SKEIN DYER: SILVESTRE NOLASCO M.D. CLIA NUMBER [id number] [facility] [place] [place]. [id number] VITAMIN D, 25 [id number] 00:00:00* Test Item Value Reference Range Interpretation Comme [facility] VITAMIN D, 25 OH (test code = 4958) 7 NG/ML [employer] AustinVITAMIN D, 25 [id number] 00:00:00* Test Item Value Reference Range Interpretation Comme [facility] VITAMIN D, 25 OH (test code = 4958) 7 NG/ML [employer] AustinVITAMIN D, 25 [id number] 00:00:00* Test Item Value Reference Range Interpretation Comme [facility] VITAMIN D, 25 OH (test code = 4958) 7 NG/ML [employer] AustinVITAMIN D, 25 [id number] 00:00:00* Test Item Value Reference Range Interpretation Comme [facility] VITAMIN D, 25 OH (test code = 4958) 7 NG/ML [employer] AustinVITAMIN D, 25 [id number] 00:00:00* Test Item Value Reference Range Interpretation Comme [facility] VITAMIN D, 25 OH (test code = 4958) 7 NG/ML Hipolito DalyLIPID [id number] 06:12:20* Test Item Value Reference Range Interpretation Comme nts CHOLESTEROL (test code = 2210) 222 MG/DL <200 H TRIGLYCERIDES (test code = 2232) 201 MG/DL <150 H HDL CHOLESTEROL (test code = 0) 50 MG/DL >39 CALC LDL CHOL (test code = 2236) 137 MG/DL <100 H NOTE: CALCULATED LDL IS BASED ON IDRIS-LAO METHOD WHICHINCLUDES ADJUSTABLE TRIGLYCERIDE:VLDL CHOLESTEROL RATIO.THIS FACTOR VARIES BY MEASURED TRIGLYCERIDE AND NON-HDLCHOLESTEROL CONCENTRATIONS WITH INCREASED CALCULATED LDL SEENIN HIGHER TRIGLYCERIDE OR LOWER NON-HDL SPECIMENS. FOR MOREINFORMATION, SEE CLIENT ANNOUNCEMENT AT [email or web address] RATIO LDL/HDL (test code = 2237) 2.74 RATIO <3.22 COMPREHENSIVE METABOLIC [id number] 06:12:20* Test Item Value Reference Range Interpretation Comme nts GLUCOSE (test code = 2216) 118 MG/DL 70-99 H BUN (test code = 2207) 8 MG/DL 6-20 CREATININE (test code = 2213) 0.76 MG/DL 0.60-1.30 eGFR (2020 CKD-EPI) (test code = 64137) 96 ML/MIN/1.73 >60 CALC BUN/CREAT (test code = 2234) 11 RATIO 6-28 SODIUM (test code = 2230) 138 MEQ/L 133-146 POTASSIUM (test code = 2227) 4.5 MEQ/L 3.5-5.4 CHLORIDE (test code = 2214) 102 MEQ/L 95-107 CARBON DIOXIDE (test code = 2205) 23 MEQ/L 19-31 CALCIUM (test code = 2208) 9.9 MG/DL 8.5-10.5 PROTEIN, TOTAL (test code = 2228) 7.1 G/DL 6.1-8.3 ALBUMIN (test code = 2200) 5.0 G/DL 3.5-5.2 CALC GLOBULIN (test code = 2240) 2.1 G/DL 1.9-3.7 CALC A/G RATIO (test code = 2233) 2.4 RATIO 1.0-2.6 BILIRUBIN, TOTAL (test code = 2206) 0.3 MG/DL <=1.2 ALKALINE PHOSPHATASE (test code = 2203) 110 U/L 40-125 AST (test code = 2217) 19 U/L 9-40 ALT (test code = 2218) 24 U/L 5-40 UNLESS OTHERWISE INDICATED, ALL TESTING PERFORMED AT [facility] [address] [place] [address] SKEIN DYER: SILVESTRE NOLASCO M.D. CLIA NUMBER [id number] [facility] [place]. [id number] CBC W/AUTO DIFF WITH [id number] 04:51:12* Test Item Value Reference Range Interpretation [...] = 1065) 0.0 /100 WBC'S See_Comment [Automated Android App Review Sourcea ge] The system which generated this result [...] 0.00-0.10 ABS NUCLEATED RBCS (test code = 73710) 0.00 K/UL 0.00-0.11 HEMOGLOBIN [id number] 02:42:29* Test Item Value Reference Range Interpretation Comme nts HEMOGLOBIN A1c (test code = 69600) 6.2 % 4.2-5.6 H [employer] GUIDELINES FOR HGB A1C: [...] CONSIDER ALTERNATE TESTING OR LABORATORY CONSULTATION. HEMOGLOBIN [id number] 00:00:00* Test Item Value Reference Range Interpretation Comme [facility] HEMOGLOBIN A1c (test code = 90997) 6.2 % Hipolito [employer] BoringLIPID [id number] 00:00:00* Test Item Value Reference Range Interpretation Comme nts CHOLESTEROL (test code = 2210) 222 MG/DL TRIGLYCERIDES (test code = 2232) 201 MG/DL HDL CHOLESTEROL (test code = 2220) 50 MG/DL CALC LDL CHOL (test code = 2237) 137 MG/DL RISK RATIO LDL/HDL (test cod e = 2238) 2.74 RATIO Hipolito DalyCOMPREHENSIVE METABOLIC [id number] 00:00:00* Test Item Value Reference Range Interpretation Comme nts GLUCOSE (test code = 2217) 118 MG/DL BUN (test code = 2208) 8 MG/DL CREATININE (test code = 2214) 0.76 MG/DL eGFR (2020 CKD-EPI) (test co de = 41922) 96 ML/MIN/1.73 CALC BUN/CREAT (test code = 2235) 11 RATIO SODIUM (test code = 2231) 138 MEQ/L POTASSIUM (test code = 2228) 4.5 MEQ/L CHLORIDE (test code = 2215) 102 MEQ/L CARBON DIOXIDE (test code = 2206) 23 MEQ/L CALCIUM (test code = 2209) 9.9 MG/DL PROTEIN, TOTAL (test code = 2229) 7.1 G/DL ALBUMIN (test code = 2201) 5.0 G/DL CALC GLOBULIN (test code = 2240) 2.1 G/DL CALC A/G RATIO (test code = 2234) 2.4 RATIO BILIRUBIN, TOTAL (test code = 2207) 0.3 MG/DL ALKALINE PHOSPHATASE (test code = 2204) 110 U/L AST (test code = 2218) 19 U/L ALT (test code = 2219) 24 U/L Hipolito DalyCBC W/AUTO [id number] 00:00:00* Test Item Value Reference Range Interpretation Comme nts WBC (test code = 1001) 8.2 K/UL RBC (test code = 1002) 4.47 M/UL HEMOGLOBIN (test code = 1003) 14.6 G/DL HEMATOCRIT (test code = 1004) 43.4 % MCV (test code = 1005) 97.1 fL MCH (test code = 1006) 32.7 PG MCHC (test code = 1007) 33.6 G/DL RDW (test code = 1038) 12.9 % NEUTROPHILS (test code = 1008) 70.2 % LYMPHOCYTES (test code = 1010) 22.1 % MONOCYTES (test code = 1011) 5.6 % EOSINOPHILS (test code = 1012) 1.2 % BASOPHILS (test code = 1013) 0.7 % IMMATURE GRANULOCYTES (test code = 1036) 0.2 % NUCLEATED RBCS (test code = 1065) 0.0 /100WBC'S PLATELET COUNT (test code = 1015) 424 K/UL ABSOLUTE NEUTROPHILS (test c ode = 1066) 5.75 K/UL ABSOLUTE LYMPHOCYTES (test c ode = 1067) 1.81 K/UL ABSOLUTE MONOCYTES (test cod e = 1068) 0.46 K/UL ABSOLUTE EOSINOPHILS (test c ode = 1040) 0.10 K/UL ABSOLUTE BASOPHILS (test cod e = 1069) 0.06 K/UL ABS IMMATURE GRANULOCYTES (t est code = 1020) 0.02 K/UL ABS NUCLEATED RBCS (test cod e = 62904) 0.00 K/UL Hipolito DalyHEMOGLOBIN [id number] 00:00:00* Test Item Value Reference Range Interpretation Comme nts HEMOGLOBIN A1c (test code = 65960) 6.2 % Hipolito DalyLIPID [id number] 00:00:00* Test Item Value Reference Range Interpretation Comme nts CHOLESTEROL (test code = 2210) 222 MG/DL TRIGLYCERIDES (test code = 2232) 201 MG/DL HDL CHOLESTEROL (test code = 2220) 50 MG/DL CALC LDL CHOL (test code = 2237) 137 MG/DL RISK RATIO LDL/HDL (test cod e = 2238) 2.74 RATIO Hipolito DalyCOMPREHENSIVE METABOLIC [id number] 00:00:00* Test Item Value Reference Range Interpretation Comme nts GLUCOSE (test code = 2217) 118 MG/DL BUN (test code = 2208) 8 MG/DL CREATININE (test code = 2214) 0.76 MG/DL eGFR (2020 CKD-EPI) (test co de = 77679) 96 ML/MIN/1.73 CALC BUN/CREAT (test code = 2235) 11 RATIO SODIUM (test code = 2231) 138 MEQ/L POTASSIUM (test code = 2228) 4.5 MEQ/L CHLORIDE (test code = 2215) 102 MEQ/L CARBON DIOXIDE (test code = 2206) 23 MEQ/L CALCIUM (test code = 2209) 9.9 MG/DL PROTEIN, TOTAL (test code = 2229) 7.1 G/DL ALBUMIN (test code = 2201) 5.0 G/DL CALC GLOBULIN (test code = 2240) 2.1 G/DL CALC A/G RATIO (test code = 2234) 2.4 RATIO BILIRUBIN, TOTAL (test code = 2207) 0.3 MG/DL ALKALINE PHOSPHATASE (test code = 2204) 110 U/L AST (test code = 2218) 19 U/L ALT (test code = 2219) 24 U/L Hipolito DalyCBC W/AUTO [id number] 00:00:00* Test Item Value Reference Range Interpretation Comme nts WBC (test code = 1001) 8.2 K/UL RBC (test code = 1002) 4.47 M/UL HEMOGLOBIN (test code = 1003) 14.6 G/DL HEMATOCRIT (test code = 1004) 43.4 % MCV (test code = 1005) 97.1 fL MCH (test code = 1006) 32.7 PG MCHC (test code = 1007) 33.6 G/DL RDW (test code = 1038) 12.9 % NEUTROPHILS (test code = 1008) 70.2 % LYMPHOCYTES (test code = 1010) 22.1 % MONOCYTES (test code = 1011) 5.6 % EOSINOPHILS (test code = 1012) 1.2 % BASOPHILS (test code = 1013) 0.7 % IMMATURE GRANULOCYTES (test code = 1036) 0.2 % NUCLEATED RBCS (test code = 1065) 0.0 /100WBC'S PLATELET COUNT (test code = 1015) 424 K/UL ABSOLUTE NEUTROPHILS (test c ode = 1066) 5.75 K/UL ABSOLUTE LYMPHOCYTES (test c ode = 1067) 1.81 K/UL ABSOLUTE MONOCYTES (test cod e = 1068) 0.46 K/UL ABSOLUTE EOSINOPHILS (test c ode = 1040) 0.10 K/UL ABSOLUTE BASOPHILS (test cod e = 1069) 0.06 K/UL ABS IMMATURE GRANULOCYTES (t est code = 1020) 0.02 K/UL ABS NUCLEATED RBCS (test cod e = 94691) 0.00 K/UL Hipolito DalyHEMOGLOBIN [id number] 00:00:00* Test Item Value Reference Range Interpretation Comme nts HEMOGLOBIN A1c (test code = 79951) 6.2 % Hipolito DalyLIPID [id number] 00:00:00* Test Item Value Reference Range Interpretation Comme nts CHOLESTEROL (test code = 2210) 222 MG/DL TRIGLYCERIDES (test code = 2232) 201 MG/DL HDL CHOLESTEROL (test code = 2220) 50 MG/DL CALC LDL CHOL (test code = 2237) 137 MG/DL RISK RATIO LDL/HDL (test cod e = 2238) 2.74 RATIO Hipolito DalyCOMPREHENSIVE METABOLIC [id number] 00:00:00* Test Item Value Reference Range Interpretation Comme nts GLUCOSE (test code = 2217) 118 MG/DL BUN (test code = 2208) 8 MG/DL CREATININE (test code = 2214) 0.76 MG/DL eGFR (2020 CKD-EPI) (test co de = 02522) 96 ML/MIN/1.73 CALC BUN/CREAT (test code = 2235) 11 RATIO SODIUM (test code = 2231) 138 MEQ/L POTASSIUM (test code = 2228) 4.5 MEQ/L CHLORIDE (test code = 2215) 102 MEQ/L CARBON DIOXIDE (test code = 2206) 23 MEQ/L CALCIUM (test code = 2209) 9.9 MG/DL PROTEIN, TOTAL (test code = 2229) 7.1 G/DL ALBUMIN (test code = 2201) 5.0 G/DL CALC GLOBULIN (test code = 2240) 2.1 G/DL CALC A/G RATIO (test code = 2234) 2.4 RATIO BILIRUBIN, TOTAL (test code = 2207) 0.3 MG/DL ALKALINE PHOSPHATASE (test code = 2204) 110 U/L AST (test code = 2218) 19 U/L ALT (test code = 2219) 24 U/L Hipolito Power [facility] W/AUTO [id number] 00:00:00* Test Item Value Reference Range Interpretation Comme nts WBC (test code = 1001) 8.2 K/UL RBC (test code = 1002) 4.47 M/UL HEMOGLOBIN (test code = 1003) 14.6 G/DL HEMATOCRIT (test code = 1004) 43.4 % MCV (test code = 1005) 97.1 fL MCH (test code = 1006) 32.7 PG MCHC (test code = 1007) 33.6 G/DL RDW (test code = 1038) 12.9 % NEUTROPHILS (test code = 1008) 70.2 % LYMPHOCYTES (test code = 1010) 22.1 % MONOCYTES (test code = 1011) 5.6 % EOSINOPHILS (test code = 1012) 1.2 % BASOPHILS (test code = 1013) 0.7 % IMMATURE GRANULOCYTES (test code = 1036) 0.2 % NUCLEATED RBCS (test code = 1065) 0.0 /100WBC'S PLATELET COUNT (test code = 1015) 424 K/UL ABSOLUTE NEUTROPHILS (test c ode = 1066) 5.75 K/UL ABSOLUTE LYMPHOCYTES (test c ode = 1067) 1.81 K/UL ABSOLUTE MONOCYTES (test cod e = 1068) 0.46 K/UL ABSOLUTE EOSINOPHILS (test c ode = 1040) 0.10 K/UL ABSOLUTE BASOPHILS (test cod e = 1069) 0.06 K/UL ABS IMMATURE GRANULOCYTES (t est code = 1020) 0.02 K/UL ABS NUCLEATED RBCS (test cod e = 51815) 0.00 K/UL Hipolito DalyHEMOGLOBIN [id number] 00:00:00* Test Item Value Reference Range Interpretation Comme mahi HEMOGLOBIN A1c (test code = 80925) 6.2 % Hipolito DalyLIPID [id number] 00:00:00* Test Item Value Reference Range Interpretation Comme nts CHOLESTEROL (test code = 2210) 222 MG/DL TRIGLYCERIDES (test code = 2232) 201 MG/DL HDL CHOLESTEROL (test code = 2220) 50 MG/DL CALC LDL CHOL (test code = 2237) 137 MG/DL RISK RATIO LDL/HDL (test cod e = 2238) 2.74 RATIO Hipolito DalyCOMPREHENSIVE METABOLIC [id number] 00:00:00* Test Item Value Reference Range Interpretation Comme nts GLUCOSE (test code = 2217) 118 MG/DL BUN (test code = 2208) 8 MG/DL CREATININE (test code = 2214) 0.76 MG/DL eGFR (2020 CKD-EPI) (test co de = 53683) 96 ML/MIN/1.73 CALC BUN/CREAT (test code = 2235) 11 RATIO SODIUM (test code = 2231) 138 MEQ/L POTASSIUM (test code = 2228) 4.5 MEQ/L CHLORIDE (test code = 2215) 102 MEQ/L CARBON DIOXIDE (test code = 2206) 23 MEQ/L CALCIUM (test code = 2209) 9.9 MG/DL PROTEIN, TOTAL (test code = 2229) 7.1 G/DL ALBUMIN (test code = 2201) 5.0 G/DL CALC GLOBULIN (test code = 2240) 2.1 G/DL CALC A/G RATIO (test code = 2234) 2.4 RATIO BILIRUBIN, TOTAL (test code = 2207) 0.3 MG/DL ALKALINE PHOSPHATASE (test code = 2204) 110 U/L AST (test code = 2218) 19 U/L ALT (test code = 2219) 24 U/L Hpiolito DalyCBC W/AUTO [id number] 00:00:00* Test Item Value Reference Range Interpretation Comme nts WBC (test code = 1001) 8.2 K/UL RBC (test code = 1002) 4.47 M/UL HEMOGLOBIN (test code = 1003) 14.6 G/DL HEMATOCRIT (test code = 1004) 43.4 % MCV (test code = 1005) 97.1 fL MCH (test code = 1006) 32.7 PG MCHC (test code = 1007) 33.6 G/DL RDW (test code = 1038) 12.9 % NEUTROPHILS (test code = 1008) 70.2 % LYMPHOCYTES (test code = 1010) 22.1 % MONOCYTES (test code = 1011) 5.6 % EOSINOPHILS (test code = 1012) 1.2 % BASOPHILS (test code = 1013) 0.7 % IMMATURE GRANULOCYTES (test code = 1036) 0.2 % NUCLEATED RBCS (test code = 1065) 0.0 /100WBC'S PLATELET COUNT (test code = 1015) 424 K/UL ABSOLUTE NEUTROPHILS (test c ode = 1066) 5.75 K/UL ABSOLUTE LYMPHOCYTES (test c ode = 1067) 1.81 K/UL ABSOLUTE MONOCYTES (test cod e = 1068) 0.46 K/UL ABSOLUTE EOSINOPHILS (test c ode = 1040) 0.10 K/UL ABSOLUTE BASOPHILS (test cod e = 1069) 0.06 K/UL ABS IMMATURE GRANULOCYTES (t est code = 1020) 0.02 K/UL ABS NUCLEATED RBCS (test cod e = 26041) 0.00 K/UL Hipolito DalyHEMOGLOBIN [id number] 00:00:00* Test Item Value Reference Range Interpretation Comme nts HEMOGLOBIN A1c (test code = 26984) 6.2 % Hipolito DalyLIPID [id number] 00:00:00* Test Item Value Reference Range Interpretation Comme nts CHOLESTEROL (test code = 2210) 222 MG/DL TRIGLYCERIDES (test code = 2232) 201 MG/DL HDL CHOLESTEROL (test code = 2220) 50 MG/DL CALC LDL CHOL (test code = 2237) 137 MG/DL RISK RATIO LDL/HDL (test cod e = 2238) 2.74 RATIO Hipolito DalyCOMPREHENSIVE METABOLIC [id number] 00:00:00* Test Item Value Reference Range Interpretation Comme nts GLUCOSE (test code = 2217) 118 MG/DL BUN (test code = 2208) 8 MG/DL CREATININE (test code = 2214) 0.76 MG/DL eGFR (2020 CKD-EPI) (test co de = 23286) 96 ML/MIN/1.73 CALC BUN/CREAT (test code = 2235) 11 RATIO SODIUM (test code = 2231) 138 MEQ/L POTASSIUM (test code = 2228) 4.5 MEQ/L CHLORIDE (test code = 2215) 102 MEQ/L CARBON DIOXIDE (test code = 2206) 23 MEQ/L CALCIUM (test code = 2209) 9.9 MG/DL PROTEIN, TOTAL (test code = 2229) 7.1 G/DL ALBUMIN (test code = 2201) 5.0 G/DL CALC GLOBULIN (test code = 2240) 2.1 G/DL CALC A/G RATIO (test code = 2234) 2.4 RATIO BILIRUBIN, TOTAL (test code = 2207) 0.3 MG/DL ALKALINE PHOSPHATASE (test code = 2204) 110 U/L AST (test code = 2218) 19 U/L ALT (test code = 2219) 24 U/L Hipolito Power [facility] W/AUTO [id number] 00:00:00* Test Item Value Reference Range Interpretation Comme nts WBC (test code = 1001) 8.2 K/UL RBC (test code = 1002) 4.47 M/UL HEMOGLOBIN (test code = 1003) 14.6 G/DL HEMATOCRIT (test code = 1004) 43.4 % MCV (test code = 1005) 97.1 fL MCH (test code = 1006) 32.7 PG MCHC (test code = 1007) 33.6 G/DL RDW (test code = 1038) 12.9 % NEUTROPHILS (test code = 1008) 70.2 % LYMPHOCYTES (test code = 1010) 22.1 % MONOCYTES (test code = 1011) 5.6 % EOSINOPHILS (test code = 1012) 1.2 % BASOPHILS (test code = 1013) 0.7 % IMMATURE GRANULOCYTES (test code = 1036) 0.2 % NUCLEATED RBCS (test code = 1065) 0.0 /100WBC'S PLATELET COUNT (test code = 1015) 424 K/UL ABSOLUTE NEUTROPHILS (test c ode = 1066) 5.75 K/UL ABSOLUTE LYMPHOCYTES (test c ode = 1067) 1.81 K/UL ABSOLUTE MONOCYTES (test cod e = 1068) 0.46 K/UL ABSOLUTE EOSINOPHILS (test c ode = 1040) 0.10 K/UL ABSOLUTE BASOPHILS (test cod e = 1069) 0.06 K/UL ABS IMMATURE GRANULOCYTES (t est code = 1020) 0.02 K/UL ABS NUCLEATED RBCS (test cod e = 77101) 0.00 K/UL Hipolito Power AustinHEMOGLOBIN [id number] 04:19:24* Test Item Value Reference Range Interpretation Comme nts HEMOGLOBIN A1c (test code = 03314) 7.0 % 4.2-5.6 H [employer] GUIDELINES FOR HGB A1C: [...] TESTING PERFORMED AT [facility] [address] [place] [address] SKEIN DYER: SILVESTRE NOLASCO M.D. CLIA NUMBER [id number] [facility] [place]. [id number] HEMOGLOBIN [id number] 00:00:00* Test Item Value Reference Range Interpretation Comme nts HEMOGLOBIN A1c (test code = 62732) 7.0 % Hipolito Power AustinHEMOGLOBIN [id number] 00:00:00* Test Item Value Reference Range Interpretation Comme nts HEMOGLOBIN A1c (test code = 57562) 7.0 % Hipolito Power AustinHEMOGLOBIN [id number] 00:00:00* Test Item Value Reference Range Interpretation Comme nts HEMOGLOBIN A1c (test code = 72819) 7.0 % Hipolito Power AustinHEMOGLOBIN [id number] 00:00:00* Test Item Value Reference Range Interpretation Comme nts HEMOGLOBIN A1c (test code = 79256) 7.0 % Hipolito Power AustinHEMOGLOBIN [id number] 00:00:00* Test Item Value Reference Range Interpretation Comme nts HEMOGLOBIN A1c (test code = 14840) 7.0 % Hipolito Power AustinCBC W/AUTO DIFF WITH [id number] 07:46:27* Test Item Value Reference Range Interpretation [...] = 1065) 0.0 /100 WBC'S See_Comment [Automated Android App Review Sourcea ge] The system which generated this result [...] 0.00-0.10 ABS NUCLEATED RBCS (test code = 78852) 0.00 K/UL 0.00-0.11 LIPID [id number] 07:09:49* Test Item Value Reference Range Interpretation [...] SPECIMENS. FOR MOREINFORMATION, SEE CLIENT ANNOUNCEMENT AT [email or web address] RISK RATIO LDL/HDL (test code = 2238) 2.92 RATIO <3.22 COMPREHENSIVE METABOLIC [id number] 07:09:49* Test Item Value Reference Range Interpretation Comme nts GLUCOSE (test code = 2217) 108 MG/DL 70-99 H BUN (test code = 2207) 10 MG/DL 6-20 CREATININE (test code = 221) 0.73 MG/DL 0.60-1.30 eGFR (2020 CKD-EPI) (test code = 85280) 101 ML/MIN/1.73 >60 CALC BUN/CREAT (test code = 2235) 14 RATIO 6-28 SODIUM (test code = 223) 139 MEQ/L 133-146 POTASSIUM (test code = 2228) 4.6 MEQ/L 3.5-5.4 CHLORIDE (test code = 2215) 99 MEQ/L 95-107 CARBON DIOXIDE (test code = 2206) 23 MEQ/L 19-31 CALCIUM (test code = 220) 9.8 MG/DL 8.5-10.5 PROTEIN, TOTAL (test code = 222) 8.0 G/DL 6.1-8.3 ALBUMIN (test code = 2201) 5.1 G/DL 3.5-5.2 CALC GLOBULIN (test code = 2240) 2.9 G/DL 1.9-3.7 CALC A/G RATIO (test code = 2234) 1.8 RATIO 1.0-2.6 BILIRUBIN, TOTAL (test code = 220) 0.3 MG/DL See_Comment [Automated me ssage] The system which generated this result transmitted reference range: <=1.2. The reference range was not used to interpret this result as normal/abnormal. ALKALINE PHOSPHATASE (test code = 2204) 133 U/L 40-125 H AST (test code = 2218) 27 U/L 9-40 ALT (test code = 2219) 45 U/L 5-40 H UNLESS OTHERWISE INDICATED, ALL TESTING PERFORMED AT [facility] [address] [place] [id number] SKEIN DYER: SILVESTRE NOLASCO M.D. CLIA NUMBER [id number] [facility] [place]. [id number] LIPID [id number] 00:00:00* Test Item Value Reference Range Interpretation Comme nts CHOLESTEROL (test code = 2210) 241 MG/DL TRIGLYCERIDES (test code = 2232) 193 MG/DL HDL CHOLESTEROL (test code = 2220) 53 MG/DL CALC LDL CHOL (test code = 2237) 155 MG/DL RISK RATIO LDL/HDL (test cod e = 2238) 2.92 RATIO Hipolito DalyCOMPREHENSIVE METABOLIC [id number] 00:00:00* Test Item Value Reference Range Interpretation Comme nts GLUCOSE (test code = 2217) 108 MG/DL BUN (test code = 2208) 10 MG/DL CREATININE (test code = 2214) 0.73 MG/DL eGFR (2020 CKD-EPI) (test code = 30002) 101 ML/MIN/1.73 CALC BUN/CREAT (test code = 2235) 14 RATIO SODIUM (test code = 2231) 139 MEQ/L POTASSIUM (test code = 2228) 4.6 MEQ/L CHLORIDE (test code = 2215) 99 MEQ/L CARBON DIOXIDE (test code = 2206) 23 MEQ/L CALCIUM (test code = 2209) 9.8 MG/DL PROTEIN, TOTAL (test code = 2229) 8.0 G/DL ALBUMIN (test code = 2201) 5.1 G/DL CALC GLOBULIN (test code = 2240) 2.9 G/DL CALC A/G RATIO (test code = 2234) 1.8 RATIO BILIRUBIN, TOTAL (test code = 2207) 0.3 MG/DL ALKALINE PHOSPHATASE (test code = 2204) 133 U/L AST (test code = 2218) 27 U/L ALT (test code = 2219) 45 U/L Hipolito DalyCBC W/AUTO [id number] 00:00:00* Test Item Value Reference Range Interpretation Comme nts WBC (test code = 1001) 6.8 K/UL RBC (test code = 1002) 4.49 M/UL HEMOGLOBIN (test code = 1003) 14.8 G/DL HEMATOCRIT (test code = 1004) 44.0 % MCV (test code = 1005) 98.0 fL MCH (test code = 1006) 33.0 PG MCHC (test code = 1007) 33.6 G/DL RDW (test code = 1038) 12.4 % NEUTROPHILS (test code = 1008) 66.5 % LYMPHOCYTES (test code = 1010) 24.4 % MONOCYTES (test code = 1011) 6.6 % EOSINOPHILS (test code = 1012) 1.5 % BASOPHILS (test code = 1013) 0.6 % IMMATURE GRANULOCYTES (test code = 1036) 0.4 % NUCLEATED RBCS (test code = 1065) 0.0 /100WBC'S PLATELET COUNT (test code = 1015) 322 K/UL ABSOLUTE NEUTROPHILS (test c ode = 1066) 4.55 K/UL ABSOLUTE LYMPHOCYTES (test c ode = 1067) 1.67 K/UL ABSOLUTE MONOCYTES (test cod e = 1068) 0.45 K/UL ABSOLUTE EOSINOPHILS (test c ode = 1040) 0.10 K/UL ABSOLUTE BASOPHILS (test cod e = 1069) 0.04 K/UL ABS IMMATURE GRANULOCYTES (t est code = 1020) 0.03 K/UL ABS NUCLEATED RBCS (test cod e = 96901) 0.00 K/UL Hipolito Power AustinLIPID [id number] 00:00:00* Test Item Value Reference Range Interpretation Comme nts CHOLESTEROL (test code = 2210) 241 MG/DL TRIGLYCERIDES (test code = 2232) 193 MG/DL HDL CHOLESTEROL (test code = 2220) 53 MG/DL CALC LDL CHOL (test code = 2237) 155 MG/DL RISK RATIO LDL/HDL (test cod e = 2238) 2.92 RATIO Hipolito DalyCOMPREHENSIVE METABOLIC [id number] 00:00:00* Test Item Value Reference Range Interpretation Comme nts GLUCOSE (test code = 2217) 108 MG/DL BUN (test code = 2208) 10 MG/DL CREATININE (test code = 2214) 0.73 MG/DL eGFR (2020 CKD-EPI) (test code = 61380) 101 ML/MIN/1.73 CALC BUN/CREAT (test code = 2235) 14 RATIO SODIUM (test code = 2231) 139 MEQ/L POTASSIUM (test code = 2228) 4.6 MEQ/L CHLORIDE (test code = 2215) 99 MEQ/L CARBON DIOXIDE (test code = 2206) 23 MEQ/L CALCIUM (test code = 2209) 9.8 MG/DL PROTEIN, TOTAL (test code = 2229) 8.0 G/DL ALBUMIN (test code = 2201) 5.1 G/DL CALC GLOBULIN (test code = 2240) 2.9 G/DL CALC A/G RATIO (test code = 2234) 1.8 RATIO BILIRUBIN, TOTAL (test code = 2207) 0.3 MG/DL ALKALINE PHOSPHATASE (test code = 2204) 133 U/L AST (test code = 2218) 27 U/L ALT (test code = 2219) 45 U/L [facility] [id number] 00:00:00* Test Item Value Reference Range Interpretation Comme nts WBC (test code = 1001) 6.8 K/UL RBC (test code = 1002) 4.49 M/UL HEMOGLOBIN (test code = 1003) 14.8 G/DL HEMATOCRIT (test code = 1004) 44.0 % MCV (test code = 1005) 98.0 fL MCH (test code = 1006) 33.0 PG MCHC (test code = 1007) 33.6 G/DL RDW (test code = 1038) 12.4 % NEUTROPHILS (test code = 1008) 66.5 % LYMPHOCYTES (test code = 1010) 24.4 % MONOCYTES (test code = 1011) 6.6 % EOSINOPHILS (test code = 1012) 1.5 % BASOPHILS (test code = 1013) 0.6 % IMMATURE GRANULOCYTES (test code = 1036) 0.4 % NUCLEATED RBCS (test code = 1065) 0.0 /100WBC'S PLATELET COUNT (test code = 1015) 322 K/UL ABSOLUTE NEUTROPHILS (test c ode = 1066) 4.55 K/UL ABSOLUTE LYMPHOCYTES (test c ode = 1067) 1.67 K/UL ABSOLUTE MONOCYTES (test cod e = 1068) 0.45 K/UL ABSOLUTE EOSINOPHILS (test c ode = 1040) 0.10 K/UL ABSOLUTE BASOPHILS (test cod e = 1069) 0.04 K/UL ABS IMMATURE GRANULOCYTES (t est code = 1020) 0.03 K/UL ABS NUCLEATED RBCS (test cod e = 84426) 0.00 K/UL Hipolito DlayLIPID [id number] 00:00:00* Test Item Value Reference Range Interpretation Comme nts CHOLESTEROL (test code = 2210) 241 MG/DL TRIGLYCERIDES (test code = 2232) 193 MG/DL HDL CHOLESTEROL (test code = 2220) 53 MG/DL CALC LDL CHOL (test code = 2237) 155 MG/DL RISK RATIO LDL/HDL (test cod e = 2238) 2.92 RATIO Hipolito DalyCOMPREHENSIVE METABOLIC [id number] 00:00:00* Test Item Value Reference Range Interpretation Comme nts GLUCOSE (test code = 2217) 108 MG/DL BUN (test code = 2208) 10 MG/DL CREATININE (test code = 2214) 0.73 MG/DL eGFR (2020 CKD-EPI) (test code = 14204) 101 ML/MIN/1.73 CALC BUN/CREAT (test code = 2235) 14 RATIO SODIUM (test code = 2231) 139 MEQ/L POTASSIUM (test code = 2228) 4.6 MEQ/L CHLORIDE (test code = 2215) 99 MEQ/L CARBON DIOXIDE (test code = 2206) 23 MEQ/L CALCIUM (test code = 2209) 9.8 MG/DL PROTEIN, TOTAL (test code = 2229) 8.0 G/DL ALBUMIN (test code = 2201) 5.1 G/DL CALC GLOBULIN (test code = 2240) 2.9 G/DL CALC A/G RATIO (test code = 2234) 1.8 RATIO BILIRUBIN, TOTAL (test code = 2207) 0.3 MG/DL ALKALINE PHOSPHATASE (test code = 2204) 133 U/L AST (test code = 2218) 27 U/L ALT (test code = 2219) 45 U/L Hipolito DalyCBC W/AUTO [id number] 00:00:00* Test Item Value Reference Range Interpretation Comme nts WBC (test code = 1001) 6.8 K/UL RBC (test code = 1002) 4.49 M/UL HEMOGLOBIN (test code = 1003) 14.8 G/DL HEMATOCRIT (test code = 1004) 44.0 % MCV (test code = 1005) 98.0 fL MCH (test code = 1006) 33.0 PG MCHC (test code = 1007) 33.6 G/DL RDW (test code = 1038) 12.4 % NEUTROPHILS (test code = 1008) 66.5 % LYMPHOCYTES (test code = 1010) 24.4 % MONOCYTES (test code = 1011) 6.6 % EOSINOPHILS (test code = 1012) 1.5 % BASOPHILS (test code = 1013) 0.6 % IMMATURE GRANULOCYTES (test code = 1036) 0.4 % NUCLEATED RBCS (test code = 1065) 0.0 /100WBC'S PLATELET COUNT (test code = 1015) 322 K/UL ABSOLUTE NEUTROPHILS (test c ode = 1066) 4.55 K/UL ABSOLUTE LYMPHOCYTES (test c ode = 1067) 1.67 K/UL ABSOLUTE MONOCYTES (test cod e = 1068) 0.45 K/UL ABSOLUTE EOSINOPHILS (test c ode = 1040) 0.10 K/UL ABSOLUTE BASOPHILS (test cod e = 1069) 0.04 K/UL ABS IMMATURE GRANULOCYTES (t est code = 1020) 0.03 K/UL ABS NUCLEATED RBCS (test cod e = 23264) 0.00 K/UL Hipolito Jannet AustinLIPID [id number] 00:00:00* Test Item Value Reference Range Interpretation Comme nts CHOLESTEROL (test code = 2210) 241 MG/DL TRIGLYCERIDES (test code = 2232) 193 MG/DL HDL CHOLESTEROL (test code = 2220) 53 MG/DL CALC LDL CHOL (test code = 2237) 155 MG/DL RISK RATIO LDL/HDL (test cod e = 2238) 2.92 RATIO Hipolito DalyCOMPREHENSIVE METABOLIC [id number] 00:00:00* Test Item Value Reference Range Interpretation Comme nts GLUCOSE (test code = 2217) 108 MG/DL BUN (test code = 2208) 10 MG/DL CREATININE (test code = 2214) 0.73 MG/DL eGFR (2020 CKD-EPI) (test code = 35764) 101 ML/MIN/1.73 CALC BUN/CREAT (test code = 2235) 14 RATIO SODIUM (test code = 2231) 139 MEQ/L POTASSIUM (test code = 2228) 4.6 MEQ/L CHLORIDE (test code = 2215) 99 MEQ/L CARBON DIOXIDE (test code = 2206) 23 MEQ/L CALCIUM (test code = 2209) 9.8 MG/DL PROTEIN, TOTAL (test code = 2229) 8.0 G/DL ALBUMIN (test code = 2201) 5.1 G/DL CALC GLOBULIN (test code = 2240) 2.9 G/DL CALC A/G RATIO (test code = 2234) 1.8 RATIO BILIRUBIN, TOTAL (test code = 2207) 0.3 MG/DL ALKALINE PHOSPHATASE (test code = 2204) 133 U/L AST (test code = 2218) 27 U/L ALT (test code = 2219) 45 U/L Hipolito [facility] W/AUTO [id number] 00:00:00* Test Item Value Reference Range Interpretation Comme nts WBC (test code = 1001) 6.8 K/UL RBC (test code = 1002) 4.49 M/UL HEMOGLOBIN (test code = 1003) 14.8 G/DL HEMATOCRIT (test code = 1004) 44.0 % MCV (test code = 1005) 98.0 fL MCH (test code = 1006) 33.0 PG MCHC (test code = 1007) 33.6 G/DL RDW (test code = 1038) 12.4 % NEUTROPHILS (test code = 1008) 66.5 % LYMPHOCYTES (test code = 1010) 24.4 % MONOCYTES (test code = 1011) 6.6 % EOSINOPHILS (test code = 1012) 1.5 % BASOPHILS (test code = 1013) 0.6 % IMMATURE GRANULOCYTES (test code = 1036) 0.4 % NUCLEATED RBCS (test code = 1065) 0.0 /100WBC'S PLATELET COUNT (test code = 1015) 322 K/UL ABSOLUTE NEUTROPHILS (test c ode = 1066) 4.55 K/UL ABSOLUTE LYMPHOCYTES (test c ode = 1067) 1.67 K/UL ABSOLUTE MONOCYTES (test cod e = 1068) 0.45 K/UL ABSOLUTE EOSINOPHILS (test c ode = 1040) 0.10 K/UL ABSOLUTE BASOPHILS (test cod e = 1069) 0.04 K/UL ABS IMMATURE GRANULOCYTES (t est code = 1020) 0.03 K/UL ABS NUCLEATED RBCS (test cod e = 46899) 0.00 K/UL Hipolito DalyLIPID [id number] 00:00:00* Test Item Value Reference Range Interpretation Comme nts CHOLESTEROL (test code = 2210) 241 MG/DL TRIGLYCERIDES (test code = 2232) 193 MG/DL HDL CHOLESTEROL (test code = 2220) 53 MG/DL CALC LDL CHOL (test code = 2237) 155 MG/DL RISK RATIO LDL/HDL (test cod e = 2238) 2.92 RATIO Hipolito DalyCOMPREHENSIVE METABOLIC [id number] 00:00:00* Test Item Value Reference Range Interpretation Comme nts GLUCOSE (test code = 2217) 108 MG/DL BUN (test code = 2208) 10 MG/DL CREATININE (test code = 2214) 0.73 MG/DL eGFR (2020 CKD-EPI) (test code = 94506) 101 ML/MIN/1.73 CALC BUN/CREAT (test code = 2235) 14 RATIO SODIUM (test code = 2231) 139 MEQ/L POTASSIUM (test code = 2228) 4.6 MEQ/L CHLORIDE (test code = 2215) 99 MEQ/L CARBON DIOXIDE (test code = 2206) 23 MEQ/L CALCIUM (test code = 2209) 9.8 MG/DL PROTEIN, TOTAL (test code = 2229) 8.0 G/DL ALBUMIN (test code = 2201) 5.1 G/DL CALC GLOBULIN (test code = 2240) 2.9 G/DL CALC A/G RATIO (test code = 2234) 1.8 RATIO BILIRUBIN, TOTAL (test code = 2207) 0.3 MG/DL ALKALINE PHOSPHATASE (test code = 2204) 133 U/L AST (test code = 2218) 27 U/L ALT (test code = 2219) 45 U/L Hipolito DalyCBC W/AUTO [id number] 00:00:00* Test Item Value Reference Range Interpretation Comme nts WBC (test code = 1001) 6.8 K/UL RBC (test code = 1002) 4.49 M/UL HEMOGLOBIN (test code = 1003) 14.8 G/DL HEMATOCRIT (test code = 1004) 44.0 % MCV (test code = 1005) 98.0 fL MCH (test code = 1006) 33.0 PG MCHC (test code = 1007) 33.6 G/DL RDW (test code = 1038) 12.4 % NEUTROPHILS (test code = 1008) 66.5 % LYMPHOCYTES (test code = 1010) 24.4 % MONOCYTES (test code = 1011) 6.6 % EOSINOPHILS (test code = 1012) 1.5 % BASOPHILS (test code = 1013) 0.6 % IMMATURE GRANULOCYTES (test code = 1036) 0.4 % NUCLEATED RBCS (test code = 1065) 0.0 /100WBC'S PLATELET COUNT (test code = 1015) 322 K/UL ABSOLUTE NEUTROPHILS (test c ode = 1066) 4.55 K/UL ABSOLUTE LYMPHOCYTES (test c ode = 1067) 1.67 K/UL ABSOLUTE MONOCYTES (test cod e = 1068) 0.45 K/UL ABSOLUTE EOSINOPHILS (test c ode = 1040) 0.10 K/UL ABSOLUTE BASOPHILS (test cod e = 1069) 0.04 K/UL ABS IMMATURE GRANULOCYTES (t est code = 1020) 0.03 K/UL ABS NUCLEATED RBCS (test cod e = 70066) 0.00 K/UL Hipolito DalyCOMPREHENSIVE METABOLIC [id number] 03:38:27* Test Item Value Reference Range Interpretation Comme nts GLUCOSE (test code = 2217) 99 MG/DL 70-99 BUN (test code = 2208) 11 MG/DL 6-20 CREATININE (test code = 2214) 0.68 MG/DL 0.60-1.30 eGFR (2020 CKD-EPI) (test code = 61439) 107 ML/MIN/1.73 >60 CALC BUN/CREAT (test code = 2235) 16 RATIO 6-28 SODIUM (test code = 223) 141 MEQ/L 133-146 POTASSIUM (test code = 2228) 4.2 MEQ/L 3.5-5.4 CHLORIDE (test code = 2215) 103 MEQ/L 95-107 CARBON DIOXIDE (test code = 220) 21 MEQ/L 19-31 CALCIUM (test code = 2209) 9.7 MG/DL 8.5-10.5 PROTEIN, TOTAL (test code = 2229) 7.5 G/DL 6.1-8.3 ALBUMIN (test code = 2201) 4.7 G/DL 3.5-5.2 CALC GLOBULIN (test code = 2240) 2.8 G/DL 1.9-3.7 CALC A/G RATIO (test code = 2234) 1.7 RATIO 1.0-2.6 BILIRUBIN, TOTAL (test code = 2207) <0.2 MG/DL See_Comment [Automated me ssage] The system which generated this result transmitted reference range: <=1.2. The reference range was not used to interpret this result as normal/abnormal. ALKALINE PHOSPHATASE (test code = 220) 127 U/L 40-123 H AST (test code = 2218) 25 U/L 9-40 ALT (test code = 2219) 33 U/L 5-40 UNLESS OTHERWISE INDICATED, ALL TESTING PERFORMED [facility] [address] [place] [id number] SKEIN DYER: CJ AYALA M.D. CLIA NUMBER [id number] [facility] [place] [place]. [id number] COMPREHENSIVE METABOLIC [id number] 00:00:00* Test Item Value Reference Range Interpretation Comme nts GLUCOSE (test code = 2217) 99 MG/DL BUN (test code = 2208) 11 MG/DL CREATININE (test code = 2214) 0.68 MG/DL eGFR (2020 CKD-EPI) (test code = 17312) 107 ML/MIN/1.73 CALC BUN/CREAT (test code = [...] <0.2 MG/DL ALKALINE PHOSPHATASE (test code = 4) 127 U/L AST (test code = 2218) 25 U/L ALT (test code = 2219) 33 U/L Hipolito DalyCOMPREHENSIVE METABOLIC [id number] 00:00:00* Test Item Value Reference Range Interpretation Comme nts GLUCOSE (test code = 2217) 99 MG/DL BUN (test code = 2208) 11 MG/DL CREATININE (test code = 2214) 0.68 MG/DL eGFR (2020 CKD-EPI) (test code = 72614) 107 ML/MIN/1.73 CALC BUN/CREAT (test code = [...] ALT (test code = 2219) 33 U/L Hipolito DalyCOMPREHENSIVE METABOLIC [id number] 00:00:00* Test Item Value Reference Range Interpretation Comme nts GLUCOSE (test code = 2217) 99 MG/DL BUN (test code = 2208) 11 MG/DL CREATININE (test code = 2214) 0.68 MG/DL eGFR (2020 CKD-EPI) (test code = 40817) 107 ML/MIN/1.73 CALC BUN/CREAT (test code = [...] ALT (test code = 2219) 33 U/L Hipolito DalyCOMPREHENSIVE METABOLIC [id number] 00:00:00* Test Item Value Reference Range Interpretation Comme nts GLUCOSE (test code = 2217) 99 MG/DL BUN (test code = 2208) 11 MG/DL CREATININE (test code = 2214) 0.68 MG/DL eGFR (2020 CKD-EPI) (test code = 38985) 107 ML/MIN/1.73 CALC BUN/CREAT (test code = [...] code = 2219) 33 U/L COMPREHENSIVE METABOLIC [id number] 00:00:00* Test Item Value Reference Range Interpretation Comme nts GLUCOSE (test code = 2217) 99 MG/DL BUN (test code = 2208) 11 MG/DL CREATININE (test code = 2214) 0.68 MG/DL eGFR (2020 CKD-EPI) (test code = 07190) 107 ML/MIN/1.73 CALC BUN/CREAT (test code = [...] code = 2219) 33 U/L COMPREHENSIVE METABOLIC [id number] 00:00:00* Test Item Value Reference Range Interpretation Comme nts GLUCOSE (test code = 2217) 99 MG/DL BUN (test code = 2208) 11 MG/DL CREATININE (test code = 2214) 0.68 MG/DL eGFR (2020 CKD-EPI) (test code = 07425) 107 ML/MIN/1.73 CALC BUN/CREAT (test code = [...] code = 2219) 33 U/L COMPREHENSIVE METABOLIC [id number] 00:00:00* Test Item Value Reference Range Interpretation Comme nts GLUCOSE (test code = 2217) 99 MG/DL BUN (test code = 2208) 11 MG/DL CREATININE (test code = 2214) 0.68 MG/DL eGFR (2020 CKD-EPI) (test code = 44458) 107 ML/MIN/1.73 CALC BUN/CREAT (test code = [...] code = 2219) 33 U/L COMPREHENSIVE METABOLIC [id number] 00:00:00* Test Item Value Reference Range Interpretation Comme nts GLUCOSE (test code = 2217) 99 MG/DL BUN (test code = 2208) 11 MG/DL CREATININE (test code = 2214) 0.68 MG/DL eGFR (2020 CKD-EPI) (test code = 80350) 107 ML/MIN/1.73 CALC BUN/CREAT (test code = [...] ALT (test code = 2219) 33 U/L Hipolito DalyCOMPREHENSIVE METABOLIC [id number] 00:00:00* Test Item Value Reference Range Interpretation Comme nts GLUCOSE (test code = 2217) 99 MG/DL BUN (test code = 2208) 11 MG/DL CREATININE (test code = 2214) 0.68 MG/DL eGFR (2020 CKD-EPI) (test code = 87392) 107 ML/MIN/1.73 CALC BUN/CREAT (test code = [...] ALT (test code = 2219) 33 U/L Hipolito DalyCBC W/AUTO DIFF WITH [id number] 03:36:39* Test Item Value Reference Range Interpretation [...] = 1065) 0.0 /100 WBC'S See_Comment [Automated Android App Review Sourcea ge] The system which generated this result [...] 0.00-0.10 ABS NUCLEATED RBCS (test code = 99347) 0.00 K/UL 0.00-0.11 CBC W/AUTO [id number] 00:00:00* Test Item Value Reference Range Interpretation [...] ABS NUCLEATED RBCS (test cod e = 40218) 0.00 K/UL Hipolito Power AustinCBC W/AUTO [id number] 00:00:00* Test Item Value Reference Range Interpretation [...] ABS NUCLEATED RBCS (test cod e = 21399) 0.00 K/UL Hipolito Power AustinCBC W/AUTO [id number] 00:00:00* Test Item Value Reference Range Interpretation [...] ABS NUCLEATED RBCS (test cod e = 74407) 0.00 K/UL [facility]BL[facility] [id number] 00:00:00* Test Item Value Reference Range Interpretation [...] ABS NUCLEATED RBCS (test cod e = 05096) 0.00 K/UL CBC W/AUTO [id number] 00:00:00* Test Item Value Reference Range Interpretation [...] ABS NUCLEATED RBCS (test cod e = 72380) 0.00 K/UL CBC W/AUTO [id number] 00:00:00* Test Item Value Reference Range Interpretation [...] ABS NUCLEATED RBCS (test cod e = 94034) 0.00 K/UL CBC W/AUTO [id number] 00:00:00* Test Item Value Reference Range Interpretation [...] ABS NUCLEATED RBCS (test cod e = 20198) 0.00 K/UL Hipolito Power [facility] W/AUTO [id number] 00:00:00* Test Item Value Reference Range Interpretation [...] ABS NUCLEATED RBCS (test cod e = 84112) 0.00 K/UL CBC W/AUTO [id number] 00:00:00* Test Item Value Reference Range Interpretation [...] ABS NUCLEATED RBCS (test cod e = 33446) 0.00 K/UL Hipolito DalyCOMPREHENSIVE METABOLIC PANEL [ADDED]2021-01-24 00:00:00* Test Item Value Reference Range Interpretation Comme nts GLUCOSE (test code = 2217) 96 MG/DL BUN (test code = 2208) 10 MG/DL CREATININE (test code = 2214) 0.68 MG/DL eGFR AMER. (test cod e = 95414) 121 ML/MIN/1.73 eGFR NON- AMER. (test code = 99245) 104 ML/MIN/1.73 CALC BUN/CREAT (test code = [...] ALT (test code = 2219) 20 U/L Hipolito DalyCOMPREHENSIVE METABOLIC PANEL [ADDED]2021-01-24 00:00:00* Test Item Value Reference Range Interpretation Comme nts GLUCOSE (test code = 2217) 96 MG/DL BUN (test code = 2208) 10 MG/DL CREATININE (test code = 2214) 0.68 MG/DL eGFR AMER. (test cod e = 48374) 121 ML/MIN/1.73 eGFR NON- AMER. (test code = 70814) 104 ML/MIN/1.73 CALC BUN/CREAT (test code = [...] ALT (test code = 2219) 20 U/L Hipolito Power AustinCOMPREHENSIVE METABOLIC PANEL [ADDED]2021-01-24 00:00:00* Test Item Value Reference Range Interpretation Comme nts GLUCOSE (test code = 2217) 96 MG/DL BUN (test code = 2208) 10 MG/DL CREATININE (test code = 2214) 0.68 MG/DL eGFR AMER. (test cod e = 86606) 121 ML/MIN/1.73 eGFR NON- AMER. (test code = 23445) 104 ML/MIN/1.73 CALC BUN/CREAT (test code = [...] ALT (test code = 2219) 20 U/L Hipolito Power AustinCOMPREHENSIVE METABOLIC PANEL [ADDED]2021-01-24 00:00:00* Test Item Value Reference Range Interpretation Comme nts GLUCOSE (test code = 2217) 96 MG/DL BUN (test code = 2208) 10 MG/DL CREATININE (test code = 2214) 0.68 MG/DL eGFR AMER. (test cod e = 20964) 121 ML/MIN/1.73 eGFR NON- AMER. (test code = 08236) 104 ML/MIN/1.73 CALC BUN/CREAT (test code = [...] MG/DL eGFR AMER. (test cod e = 81252) 121 ML/MIN/1.73 eGFR NON- AMER. (test code = 41459) 104 ML/MIN/1.73 CALC BUN/CREAT (test code = [...] MG/DL eGFR AMER. (test cod e = 62203) 121 ML/MIN/1.73 eGFR NON- AMER. (test code = 38659) 104 ML/MIN/1.73 CALC BUN/CREAT (test code = [...] MG/DL eGFR AMER. (test cod e = 26568) 121 ML/MIN/1.73 eGFR NON- AMER. (test code = 26049) 104 ML/MIN/1.73 CALC BUN/CREAT (test code = [...] ALT (test code = 2219) 20 U/L Hipolito Power AddyCOMPREHENSIVE METABOLIC PANEL [ADDED]2021-01-24 00:00:00* Test Item Value Reference Range Interpretation Comme nts GLUCOSE (test code = 2217) 96 MG/DL BUN (test code = 2208) 10 MG/DL CREATININE (test code = 2214) 0.68 MG/DL eGFR AMER. (test cod e = 56517) 121 ML/MIN/1.73 eGFR NON- AMER. (test code = 68633) 104 ML/MIN/1.73 CALC BUN/CREAT (test code = [...] MG/DL eGFR AMER. (test cod e = 30762) 121 ML/MIN/1.73 eGFR NON- AMER. (test code = 28920) 104 ML/MIN/1.73 CALC BUN/CREAT (test code = 2235) 15 RATIO SODIUM (test code = 2231) 141 MEQ/L POTASSIUM (test code = 2228) 4.3 MEQ/L CHLORIDE (test code = 2215) 102 MEQ/L CARBON DIOXIDE (test code = 2206) 25 MEQ/L CALCIUM (test code = 2209) 9.8 MG/DL PROTEIN, TOTAL (test code = 222) 7.5 G/DL ALBUMIN (test code = 2201) 4.7 G/DL CALC GLOBULIN (test code = 2240) 2.8 G/DL CALC A/G RATIO (test code = 2234) 1.7 RATIO BILIRUBIN, TOTAL (test code = 2207) 0.2 MG/DL ALKALINE PHOSPHATASE (test code = 2203) 132 U/L AST (test code = 2218) 15 U/L ALT (test code = 2219) 20 U/L Hipolito Power IpymggKWLC-[id number]-9 (COVID-19) by RT-PCR (HIGH RISK)2020-06-20 00:00:00* Test Item Value Reference Range Interpretation Comme nts SARS-CoV-2 INTERPRETATION (t est code = 35308) NEGATIVE SOURCE (test code = 38908) NOT SPECIFIED Hipolito Jannet JuxdnfLMWK-MiY-2 (COVID-19) by RT-PCR (HIGH RISK)2020-06-20 00:00:00* Test Item Value Reference Range Interpretation Comme nts SARS-CoV-2 INTERPRETATION (t est code = 56733) NEGATIVE SOURCE (test code = 66545) NOT SPECIFIED Hipolito Power CzxmjsLFDO-BeN-8 (COVID-19) by RT-PCR (HIGH RISK)2020-06-20 00:00:00* Test Item Value Reference Range Interpretation Comme nts SARS-CoV-2 INTERPRETATION (t est code = 86923) NEGATIVE SOURCE (test code = 90619) NOT SPECIFIED Hipolito F YcfwhsZGMI-FsB-4 (COVID-19) by RT-PCR (HIGH RISK)2020-06-20 00:00:00* Test Item Value Reference Range Interpretation Comme nts SARS-CoV-2 INTERPRETATION (t est code = 61945) NEGATIVE SOURCE (test code = 07262) NOT SPECIFIED SARS-CoV-2 (COVID-19) by RT-PCR (HIGH RISK)2020-06-20 00:00:00* Test Item Value Reference Range Interpretation Comme nts SARS-CoV-2 INTERPRETATION (t est code = 46811) NEGATIVE SOURCE (test code = 41533) NOT SPECIFIED SARS-CoV-2 (COVID-19) by RT-PCR (HIGH RISK)2020-06-20 00:00:00* Test Item Value Reference Range Interpretation Comme nts SARS-CoV-2 INTERPRETATION (t est code = 67237) NEGATIVE SOURCE (test code = 59332) NOT SPECIFIED SARS-CoV-2 (COVID-19) by RT-PCR (HIGH RISK)2020-06-20 00:00:00* Test Item Value Reference Range Interpretation Comme nts SARS-CoV-2 INTERPRETATION (t est code = 52522) NEGATIVE SOURCE (test code = 10381) NOT SPECIFIED Hipolito F HwlazsOVDS-MuQ-6 (COVID-19) by RT-PCR (HIGH RISK)2020-06-20 00:00:00* Test Item Value Reference Range Interpretation Comme nts SARS-CoV-2 INTERPRETATION (t est code = 65325) NEGATIVE SOURCE (test code = 25241) NOT SPECIFIED SARS-CoV-2 (COVID-19) by RT-PCR (HIGH RISK)2020-06-20 00:00:00* Test Item Value Reference Range Interpretation Comme nts SARS-CoV-2 INTERPRETATION (t est code = 38231) NEGATIVE SOURCE (test code = 04312) NOT SPECIFIED Hipolito F HrdqizYHKX-JeB-4 (COVID-19) by RT-PCR (HIGH RISK)2020-01-30 00:00:00* Test Item Value Reference Range Interpretation Comme nts SARS-CoV-2 INTERPRETATION (t est code = 97633) NEGATIVE SOURCE (test code = 64503) NOT SPECIFIED Hipolito F EjifqdWQKD-LvE-0 (COVID-19) by RT-PCR (HIGH RISK)2020-01-30 00:00:00* Test Item Value Reference Range Interpretation Comme nts SARS-CoV-2 INTERPRETATION (t est code = 17237) NEGATIVE SOURCE (test code = 41266) NOT SPECIFIED Hipolito F RzwrwaVHTB-WsZ-0 (COVID-19) by RT-PCR (HIGH RISK)2020-01-30 00:00:00* Test Item Value Reference Range Interpretation Comme nts SARS-CoV-2 INTERPRETATION (t est code = 19486) NEGATIVE SOURCE (test code = 04443) NOT SPECIFIED Hipolito Power LcigcjKYHN-UtM-6 (COVID-19) by RT-PCR (HIGH RISK)2020-01-30 00:00:00* Test Item Value Reference Range Interpretation Comme nts SARS-CoV-2 INTERPRETATION (t est code = 42119) NEGATIVE SOURCE (test code = 55015) NOT SPECIFIED SARS-CoV-2 (COVID-19) by RT-PCR (HIGH RISK)2020-01-30 00:00:00* Test Item Value Reference Range Interpretation Comme nts SARS-CoV-2 INTERPRETATION (t est code = 16016) NEGATIVE SOURCE (test code = 89874) NOT SPECIFIED SARS-CoV-2 (COVID-19) by RT-PCR (HIGH RISK)2020-01-30 00:00:00* Test Item Value Reference Range Interpretation Comme nts SARS-CoV-2 INTERPRETATION (t est code = 32147) NEGATIVE SOURCE (test code = 89219) NOT SPECIFIED Hipolito Jannet EfgjavNPHU-XaE-2 (COVID-19) by RT-PCR (HIGH RISK)2020-01-30 00:00:00* Test Item Value Reference Range Interpretation Comme nts SARS-CoV-2 INTERPRETATION (t est code = 44803) NEGATIVE SOURCE (test code = 55096) NOT SPECIFIED SARS-CoV-2 (COVID-19) by RT-PCR (HIGH RISK)2020-01-30 00:00:00* Test Item Value Reference Range Interpretation Comme nts SARS-CoV-2 INTERPRETATION (t est code = 59736) NEGATIVE SOURCE (test code = 65982) NOT SPECIFIED SARS-CoV-2 (COVID-19) by RT-PCR (HIGH RISK)2020-01-30 00:00:00* Test Item Value Reference Range Interpretation Comme nts SARS-CoV-2 INTERPRETATION (t est code = 68438) NEGATIVE SOURCE (test code = 43947) NOT SPECIFIED Hipolito F JuaquinR [id number] 15:29:04* Test Item Value Reference Range Interpretation [...] = Expiration Dt) 05.03.2020 N Thyroid Stimulating [id number] 09:32:34* Test Item Value Reference Range Interpretation Comme [facility] TSH (test code = TSH) 6.560 mIU/mL 0.270-4.200 H Lipid [id number] 09:27:43* Test Item Value Reference Range Interpretation Comme [facility] Cholesterol Total (test code = Cholesterol Total) 192 mg/dL 0-200 RISK OF HEART DISEASEPublished by British Heart Association Analyte Optimal Borderline Increased RiskCHOL [...] calculation is LDL/HDL Ratio=LDL Calc/HDL Chol Creatine [id number] 00:05:39* Test Item Value Reference Range Interpretation Comme [facility] CK (test code = CK) 65 U/L 26-192 Troponin [id number] 00:05:39* Test Item Value Reference Range Interpretation Comme [facility] Troponin-T (test code = Troponin-T) <6.000 ng/L [...] diagnosis of chronic myocardial injury. Comprehensive Metabolic [id number] 14:12:04* Test Item Value Reference Range Interpretation [...] A/G Ratio) 1.7 ratio N Comprehensive Metabolic [id number] 14:12:04* Test Item Value Reference Range Interpretation [...] is not provided, and the patient is -British, multiply by 1.212. If sex is not [...] by the National Kidney Foundation, http://nkdep.nih.gov Alcohol Dcifj0328-22-83 14:12:04* Test Item Value Reference Range Interpretation Comme nts Ethanol Level (test code = Ethanol Level) <0.00 g/dL 0.00-0.01 Intoxicated 0.08 0 g/dL or more Ethanol Inst (test code = Ethanol Inst) <0 N Comprehensive Metabolic [id number] 14:12:04* Test Item Value Reference Range Interpretation [...] is not provided, and the patient is -British, multiply by 1.212. If sex is not [...] is not provided, and the patient is -British, multiply by 1.212. If sex is not [...] the National Kidney Foundation, http://nkdep.nih.gov Urine Drug [id number] 14:08:08* Test Item Value Reference Range Interpretation [...] separate confirmatory test if desired. HCG Qualitative [id number] 14:02:44* Test Item Value Reference Range Interpretation [...] Lot # (test code = Lot #) [id number] N Expiration Dt (test code = Expiration Dt) 2020-10-01 N Neg Control (test code = Neg Control) Negative Pos Control (test code = Pos Control) Positive Internal QC (test code = Internal QC) Acceptable Urinalysis with Culture, if ekwosfyri2858-13-67 14:02:27* Test Item Value Reference Range Interpretation [...] rule GL_SJM_UA_MICRO_IN D Complete Blood Count with Syabmeifdudx4381-89-18 13:51:51* Test Item Value Reference Range Interpretation [...] code = IPF) 0 % N Automated Rvmuyzbzyuaq0607-97-19 13:51:51* Test Item Value Reference Range Interpretation Comme nts Neutro Auto (test code = Svetlana tro Auto) 68.5 % 36.0-70.0 Lymph Auto (test code = Lymph Auto) 23.6 % 12.0-44.0 Centre Auto (test code = Centre Auto) 5.8 % 0.0-11.0 Eos, Auto (test code = Eos, Auto) 1.0 % 0.0-7.0 Basophil Auto (test code = B asophil Auto) 0.9 % 0.0-2.0 Neutro Absolute (test code = Neutro Absolute) 4.0 x10 1.6-7.4 Lymph Absolute (test code = Lymph Absolute) 1.38 x10 .50-4.60 Centre Absolute (test code = M bharathi Absolute) .34 x10 .00-1.20 Eos Absolute (test code = Eo s Absolute) 0.06 x10 0.00-0.74 Baso Absolute (test code = B aso Absolute) 0.05 x10 0.00-0.21 IG [id number] 13:51:51* Test Item Value Reference Range Interpretation Comme nts IG (test code = IG) 0.2 % 0.0-5.0 IG Abs (test code = IG Abs) 0 x10 N Creatine [id number] 08:22:26* Test Item Value Reference Range Interpretation Comme nts CK (test code = CK) 45 U/L 26-192 Troponin [id number] 16:44:24* Test Item Value Reference Range Interpretation [...] a diagnosis of chronic myocardial injury. Magnesium [id number] 16:38:56* Test Item Value Reference Range Interpretation Comme nts Magnesium Level (test code = Magnesium Level) 1.8 mg/dL 1.7-2.5 Urine [id number] 09:23:16C Urine Added by GL_SJM_UA_CUL_INDNo growth at 24 hours. No growth at 48 hours.RPR Czeavygabgi6158-96-30 11:20:36* Test Item Value Reference Range Interpretation [...] code = Expiration Dt) 05-03-2020 N Hemoglobin [id number] 06:15:12* Test Item Value Reference Range Interpretation Comme nts Hemoglobin A1c (test code = Hemoglobin A1c) 5.1 % 4.8-5.9 Non Diabetic 4.8-5.9%Diabetic <7.0% Thyroid Stimulating Qixelsr3155-10-70 06:15:12* Test Item Value Reference Range Interpretation Comme nts TSH (test code = TSH) 3.620 mIU/mL 0.270-4.200 Lipid [id number] 05:41:18* Test Item Value Reference Range Interpretation Comme nts Cholesterol Total (test code = Cholesterol Total) 196 mg/dL 0-200 RISK OF HEART DISEASEPublished by [employer] Heart Association Analyte Optimal Borderline Increased RiskCHOL [...] calculation is LDL/HDL Ratio=LDL Calc/HDL Chol Salicylate [id number] 21:58:13* Test Item Value Reference Range Interpretation Comme nts Salicylate Level (test code = Salicylate Level) 4.7 mg/dL 0.3-10.0 Comprehensive Metabolic [id number] 21:58:12* Test Item Value Reference Range Interpretation [...] = A/G Ratio) 2.0 ratio N Acetaminophen [id number] 21:58:12* Test Item Value Reference Range Interpretation Comme nts Acetaminophen Level (test co de = Acetaminophen Level) <15.0 ug/mL(g) 15.0-30.0 Comprehensive Metabolic Jpzqh7082-69-16 21:58:12* Test Item Value Reference Range Interpretation [...] is not provided, and the patient is -British, multiply by 1.212. If sex is not [...] by the National Kidney Foundation, http://nkdep.nih.gov Alcohol Xdyol0118-82-38 21:58:12* Test Item Value Reference Range Interpretation Comme nts Ethanol Level (test code = Ethanol Level) <0.00 g/dL 0.00-0.01 Intoxicated 0.08 0 g/dL or more Ethanol Inst (test code = Ethanol Inst) <0 N Comprehensive Metabolic [id number] 21:58:12* Test Item Value Reference Range Interpretation [...] is not provided, and the patient is -British, multiply by 1.212. If sex is not [...] is not provided, and the patient is -British, multiply by 1.212. If sex is not [...] by the National Kidney Foundation, http://nkdep.nih.gov Urinalysis Itzohnmzsbc1671-48-14 21:43:20* Test Item Value Reference Range Interpretation Comme nts UA WBC (test code = UA WBC) 6-10 0-5 A UA RBC (test code = UA RBC) 0-5 0-5 UA Bacteria (test code = UA Bacteria) Few A UA Squam Epithelial (test co de = UA Squam Epithelial) TNTC A HCG Qualitative [id number] 21:36:40* Test Item Value Reference Range Interpretation Comme nts HCG, Serum Qual (test code = HCG, Serum Qual) Negative Lot # (test code = Lot #) [id number] N Expiration Dt (test code = Expiration Dt) 08/31/2020 N Neg Control (test code = Neg Control) Negative Pos Control (test code = Pos Control) Positive Internal QC (test code = Int ernal QC) Acceptable Urine Drug [id number] 21:24:35* Test Item Value Reference Range Interpretation [...] test if desired. Complete Blood Count with Lhcryvmkdgme1424-51-73 21:15:33* Test Item Value Reference Range Interpretation [...] code = IPF) 0 % N Automated Pqdzqgjmlyud6510-89-93 21:15:33* Test Item Value Reference Range Interpretation Comme nts Neutro Auto (test code = Svetlana tro Auto) 53.2 % 36.0-70.0 Lymph Auto (test code = Lymph Auto) 37.9 % 12.0-44.0 Centre Auto (test code = Centre Auto) 6.1 % 0.0-11.0 Eos, Auto (test code = Eos, Auto) 2.1 % 0.0-7.0 Basophil Auto (test code = B asophil Auto) 0.5 % 0.0-2.0 Neutro Absolute (test code = Neutro Absolute) 3.3 x10 1.6-7.4 Lymph Absolute (test code = Lymph Absolute) 2.34 x10 .50-4.60 Centre Absolute (test code = M bharathi Absolute) .38 x10 .00-1.20 Eos Absolute (test code = Eo s Absolute) 0.13 x10 0.00-0.74 Baso Absolute (test code = B aso Absolute) 0.03 x10 0.00-0.21 IG [id number] 21:15:33* Test Item Value Reference Range Interpretation Comme nts IG (test code = IG) 0.2 % 0.0-5.0 IG Abs (test code = IG Abs) 0 x10 N Urinalysis with Culture, if [id number] 21:12:46* Test Item Value Reference Range Interpretation [...]
[2024-08-06] MEDS ORDERED: HYDROCODONE/APAP 5/325 MG TAB ONE (00:17)
[2024-08-06] MEDS ORDERED: DIAZEPAM 5 MG TABLET ONE (00:17)
--- NOTE | 2024-08-06 01:14 | EDPHYS ---
Physician Documentation [facility] Name: Araceli Cooney Age: 48 yrs Sex: Female : 1975 Arrival Date: 08/05/2024 Time: 23:55 Bed 4 Private MD: ED Physician Gasper Mcnally HPI: 08/06 00:14 This 48 yrs old Female presents to ER via Ambulatory with complaints of dr5 Shoulder Injury - right. 00:14 The patient or guardian complains of an injury. right shoulder. Context: The problem dr5 was sustained at home, resulted from a fall, from a standing position. Onset: The symptoms/episode began/occurred 1 hour(s) ago. Patient is a 48-year-old female with history of hypertension, VT, COPD, diabetes coming in with slip and fall to right shoulder/right arm. Patient denies any medications prior to arrival. . Historical: - Allergies: 00:02 No Known Allergies; ss - PMHx: 00:02 diabetes mellitus; Hypertensive disorder; Myocardial infarction; ss - Immunization history:: Adult Immunizations up to date. - Infectious Disease History:: Denies. - Social history:: Smoking status: Patient reports the use of cigarette tobacco products, smokes one pack cigarettes per day. Smoking status: Patient reports the use of cigarette tobacco products, smokes one-half pack cigarettes per day. ROS: 00:14 Constitutional: as per hpi dr5 Exam: 00:14 Constitutional: This is a well developed, well nourished patient who is awake, alert, dr5 and in no acute distress. Head/Face: Normocephalic, atraumatic. ENT: Nares patent. No nasal discharge, no septal abnormalities noted. Tympanic membranes are normal and external auditory canals are clear. Oropharynx with no redness, swelling, or masses, exudates, or evidence of obstruction, uvula midline. Mucous membranes moist. Neck: Trachea midline, no thyromegaly or masses palpated, and no cervical lymphadenopathy. Supple, full range of motion without nuchal rigidity, or vertebral point tenderness. No Meningismus. Chest/axilla: Normal chest wall appearance and motion. Nontender with no deformity. No lesions are appreciated. Cardiovascular: Regular rate and rhythm with a normal S1 and S2. Normal PMI, no JVD. No pulse deficits. Respiratory: Lungs have equal breath sounds bilaterally, clear to auscultation. No rales, rhonchi or wheezes noted. No increased work of breathing, no retractions or nasal flaring. Back: No spinal tenderness. No costovertebral tenderness. Full range of motion. Skin: Warm, dry with normal turgor. Normal color with no rashes, no lesions, and no evidence of cellulitis. Neuro: Awake and alert, GCS 15, oriented to person, place, time, and situation. Cranial nerves II-XII grossly intact. Motor strength 5/5 in all extremities. Sensory grossly intact. Cerebellar exam normal. Normal gait. 00:14 Musculoskeletal/extremity: Extremities: grossly normal except: noted in the right arm and right shoulder: pain, tenderness, ROM: full passive range of motion, in the right shoulder, Circulation is intact in all extremities. Sensation intact. Vital Signs: 00:01 BP 139 / 98; Pulse 85; Resp 15; Temp 98.1(TE); Pulse Ox 96% on R/A; Weight 86.18 kg; ss Height 4 ft. 11 in. ; Pain 8/10; 01:39 BP 137 / 91; Pulse 82; Resp 16; Temp 98.3; Pulse Ox 98% on R/A; dd2 00:01 Body Mass Index 38.37 (86.18 kg, 149.86 cm) 00:01 Pain Scale: Adult ss Hanover Coma Score: 00:28 Eye Response: spontaneous(4). Motor Response: obeys commands(6). Verbal Response: dd2 oriented(5). Total: 15. MDM: 00:09 Medical Screening Exam initiated dr5 01:17 Differential diagnosis: Anterior dislocation with fracture, Anterior dislocation dr5 without fracture, Posterior dislocation with fracture, Posterior dislocation without fracture, humeral head fracture. Data reviewed: vital signs, nurses notes, radiologic studies. I considered the following discharge prescriptions or medication management in the emergency department Medications were administered in the Emergency Department. See MAR. Care significantly affected by the following chronic conditions: Diabetes, Hypertension, Chronic Obstructive Pulmonary Disease. Care significantly affected by the following Social Determinants of Health: Poor access to healthcare and/or lack of insurance, Poor access to transportation, Problems related to employment. Counseling: I had a detailed discussion with the patient and/or guardian regarding the historical points, exam findings, and any diagnostic results supporting the discharge/admit diagnosis, the presence of at least one elevated blood pressure reading (>120/80) during this emergency department visit, radiology results, the need for outpatient follow up, for definitive care, a family practitioner, a orthopedic surgeon, to return to the emergency department if symptoms worsen or persist or if there are any questions or concerns that arise at home. Medication response: Valium, [place]. Response to treatment: the patient's symptoms have markedly improved after treatment. ED course: Patient found to have displaced humeral neck fracture. Shoulder immobilizer placed in ER. Tramadol prescribed for patient. Patient recommended patient follow-up with orthopedics this week for further management. All questions answered. Recommended also alternating Tylenol Motrin with tramadol for breakthrough pain. Patient verbalized understanding.. 08/06 00:08 Order name: Shoulder Right (2 View) XRAY dr5 08/06 00:09 Order name: Humerus Right XRAY dr5 08/06 01:10 Order name: Shoulder Immobilizer; Complete Time: 01:38 dr5 Administered Medications: 00:20 Drug: HYDROcodone-acetaminophen PO 5 mg-325 mg 2 tabs PO once Route: PO; dd2 00:50 Follow up: Response: No adverse reaction dd2 00:20 Drug: Diazepam PO 5 mg PO once Route: PO; dd2 00:50 Follow up: Response: No adverse reaction dd2 Disposition: 06:43 Co-signature as Attending Physician, Gasper Mcnally MD I agree with the assessment sp4 and plan of care. I reviewed the patient's care provided by the Advanced Practice Provider and agree with the diagnosis and treatment plan. Disposition Summary: 08/06/24 01:14 Discharge Ordered Notes: Location: Home dr5 Condition: Stable dr5 Diagnosis - Unspecified displaced fracture of surgical neck of right humerus, initial encounter dr5 for closed fracture Followup: dr5 - With: Emergency Department - When: As needed - Reason: Worsening of condition Followup: dr5 - With: Cash Price MD - When: 1 - 2 days - Reason: Recheck today's complaints, Continuance of care, Re-evaluation by your physician Followup: dr5 - With: Sabas Teran MD - When: 1 - 2 days - Reason: Recheck today's complaints, Continuance of care, Re-evaluation by your physician Discharge Instructions: - Discharge Summary Sheet dr5 - Humerus Fracture Treated With Immobilization, [id number] dr5 Forms: - Medication Reconciliation Form dr5 - Prescription Opioid Use dr5 - Patient Portal Instructions dr5 - Leadership Thank You Letter dr5 Prescriptions: - Tramadol 50 mg Oral tablet - take 1 tablet ORAL route every 8 hours as needed; 20 tablet; Refills: 0, dr5 Product Selection Permitted Signatures: Dispatcher [employer] Hien Ellis RN RN Gasper Sparks MD MD sp4 GEORGE LY RN RN dd2 Ananda Barajas, COMMISSIONING MANAGER-C COMMISSIONING MANAGER-[facility]5 Corrections: (The following items were deleted from the chart) 01:10 01:06 Sling ordered. dr5 dr5
--- NOTE | 2024-08-06 01:14 | ER ---
Nurse's Notes [facility] Name: Araceli Cooney Age: 48 yrs Sex: Female : 1975 Arrival Date: 08/05/2024 Time: 23:55 Bed 4 Private MD: Diagnosis: Unspecified displaced fracture of surgical neck of right humerus, initial encounter for closed fracture Presentation: 08/06 00:01 Chief complaint: Patient states: R upper arm pain that began 1 hour ago after falling ss onto it from a standing position. Coronavirus screen: Client denies travel out of the [place] in the last 14 days. Ebola Screen: Patient denies exposure to infectious person. Patient denies travel to an Ebola-affected area in the 21 days before illness onset. Initial Sepsis Screen: Does the patient meet any 2 criteria? No. Patient's initial sepsis screen is negative. Does the patient have a suspected source of infection? No. Patient's initial sepsis screen is negative. Risk Assessment: Do you want to hurt yourself or someone else? Patient reports no desire to harm self or others. Onset of symptoms was August 05, 2024. 00:01 Method Of Arrival: Ambulatory ss 00:01 Acuity: JOSE 3 ss Triage Assessment: 01:41 Injury Description: rt shoulder injury. dd2 Historical: - Allergies: 00:02 No Known Allergies; ss - PMHx: 00:02 diabetes mellitus; Hypertensive disorder; Myocardial infarction; ss - Immunization history:: Adult Immunizations up to date. - Infectious Disease History:: Denies. - Social history:: Smoking status: Patient reports the use of cigarette tobacco products, smokes one pack cigarettes per day. Smoking status: Patient reports the use of cigarette tobacco products, smokes one-half pack cigarettes per day. Screenin:28 [facility] ED Fall Risk Assessment (Adult) History of falling in the last 3 months, dd2 including since admission Yes- single mechanical fall (1 pt) Confusion or Disorientation No (0 pts) Intoxicated or Sedated No (0 pts) Impaired Gait No (0 pts) Mobility Assist Device Used No (0 pt) Altered Elimination No (0 pt) Score/Fall Risk Level 0 - 2 = Low Risk Oriented to surroundings, Maintained a safe environment, Educated pt \T\ family on fall prevention, incl call for assistance when getting out of bed, Assessed \T\ reinforced patient's understanding of fall precautions, Hourly rounding (assess needs \T\ fall precautionary measures) done. Abuse screen: Denies threats or abuse. Nutritional screening: No deficits noted. Tuberculosis screening: No symptoms or risk factors identified. Assessment: 00:28 General: Appears in no apparent distress. uncomfortable, Behavior is calm, cooperative, dd2 appropriate for age. Pain: Complains of pain in right arm and right shoulder Pain does not radiate. Pain currently is 10 out of 10 on a pain scale. Quality of pain is described as throbbing. Neuro: No deficits noted. Anders Agitation-Sedation Scale (RASS): 0 - Alert and Calm Level of Consciousness is awake, alert, obeys commands, Oriented to person, place, time, situation, Appropriate for age. Cardiovascular: No deficits noted. Patient's skin is warm and dry. Respiratory: No deficits noted. Airway is patent Respiratory effort is even, unlabored, Respiratory pattern is regular, symmetrical. GI: No deficits noted. No signs and/or symptoms were reported involving the gastrointestinal system. : No deficits noted. No signs and/or symptoms were reported regarding the genitourinary system. EENT: No deficits noted. No signs and/or symptoms were reported regarding the EENT system. Derm: No deficits noted. No signs and/or symptoms reported regarding the dermatologic system. Musculoskeletal: Circulation, motion, and sensation intact. Range of motion: limited in right shoulder Reports pain in right arm and right shoulder Pain is 10 out of 10 on a pain scale. Vital Signs: 00:01 BP 139 / 98; Pulse 85; Resp 15; Temp 98.1(TE); Pulse Ox 96% on R/A; Weight 86.18 kg; ss Height 4 ft. 11 in. ; Pain 8/10; 01:39 BP 137 / 91; Pulse 82; Resp 16; Temp 98.3; Pulse Ox 98% on R/A; dd2 00:01 Body Mass Index 38.37 (86.18 kg, 149.86 cm) ss 00:01 Pain Scale: Adult ss David Coma Score: 00:28 Eye Response: spontaneous(4). Motor Response: obeys commands(6). Verbal Response: dd2 oriented(5). Total: 15. ED Course: 08/05 23:57 Patient arrived in ED. im 08/06 00:02 Triage completed. ss 00:02 Arm band placed on left wrist. ss 00:08 Ananda Barajas [facility]NP-C [facility]5 00:08 Gasper Mcnally MD is Attending Physician. dr5 00:15 GEORGE LY, RN is Primary Nurse. dd2 00:28 Patient has correct armband on for positive identification. Bed in low position. Call dd2 light in reach. Side rails up X 1. Client placed on continuous cardiac and pulse oximetry monitoring. NIBP monitoring applied. Door closed. Noise minimized. Pillow given. Verbal reassurance given. 00:28 Patient did not have IV access during this emergency room visit. Patient maintains SpO2 dd2 saturation greater than 95% on room air. 00:42 Shoulder Right (2 View) XRAY In Process Unspecified. EDMS 00:42 Humerus Right XRAY In Process Unspecified. EDMS 01:10 Cash Price MD is Referral Physician. dr5 01:10 Sabas Teran MD is Referral Physician. dr5 01:39 Provided Education on: d/c education, f/u, medication. dd2 01:39 No provider procedures requiring assistance completed. Shoulder immobilizer applied on dd2 right shoulder. Administered Medications: 00:20 Drug: HYDROcodone-acetaminophen PO 5 mg-325 mg 2 tabs PO once Route: PO; dd2 00:50 Follow up: Response: No adverse reaction dd2 00:20 Drug: Diazepam PO 5 mg PO once Route: PO; dd2 00:50 Follow up: Response: No adverse reaction dd2 Medication: 00:28 VIS not applicable for this client. dd2 Outcome: 01:14 Discharge ordered by . dr5 01:39 Discharged to home ambulatory, dd2 01:39 Condition: stable 01:39 Discharge instructions given to patient, Instructed on discharge instructions, follow up and referral plans. medication usage, Demonstrated understanding of instructions, follow-up care, medications, Prescriptions given X 1, 01:42 Patient left the ED. dd2 Signatures: Dispatcher [employer] Hien Ellis, KETAN RN Megan Garcia GEORGE LY RN RN dd2 Ananda Barajas FNP-C TRAFFIC ENUMERATOR-Cdr5 Corrections: (The following items were deleted from the chart) 00:02 00:01 Onset of symptoms was August 06, 2024 ss ss
[2024-08-06 01:49] VITALS: BP 137/91; TEMP 98.3; O2SAT 98
--- NOTE | 2024-08-06 05:35 | RAD REPORT ---
EXAM: XR Right Shoulder Complete, 2 or More Views CLINICAL HISTORY: Swelling; Pain TECHNIQUE: Two or more views of the right shoulder. COMPARISON: No relevant prior studies available. FINDINGS: Bones/joints: Mildly impacted right humeral head/neck fracture. No dislocation. Soft tissues: Unremarkable. IMPRESSION: Right humeral head/neck fracture. Electronically signed by: Jorge L Reynolds MD 08/06/2024 12:54 AM [facility] Due to temporary technical issues with the PACS/[employer] reporting system, reports are being nataliia d by the in-house radiologist without review as a courtesy to ensure prompt reporting the interpreting radiologist is fully responsible for the content of the report. Transcribed Date/Time: 08/06/2024 5:35 AM
--- NOTE | 2024-08-06 05:35 | RAD REPORT ---
EXAM DESCRIPTION: Humerus Right CLINICAL HISTORY: 48 years Female, Pain;Swelling COMPARISON: None. FINDINGS: There is an acute, displaced fracture of the right humeral neck. No dislocation. Acromioclavicular an d coracoclavicular intervals appear normal. Visualized right lung is clear. Surrounding soft tissues are unremarkable. IMPRESSION: Acute fracture of the right humeral neck. Electronically signed by: Avtar Roche MD 08/06/2024 12:55 AM [facility] Due to temporary technical issues with the PACS/[employer] reporting system, reports are being nataliia d by the in-house radiologist without review as a courtesy to ensure prompt reporting the interpreting radiologist is fully responsible for the content of the report. Transcribed Date/Time: 08/06/2024 5:35 AM
== END 2024-08-06 01:42 | disposition home or self-care (01) ==
LOC: ER 23:55
DX: S42.211A Unspecified displaced fracture of surgical neck of right humerus, initial encounter for closed fracture (principal); W01.0XXA Fall on same level from slipping, tripping and stumbling without subsequent striking against object, initial encounter; F17.210 Nicotine dependence, cigarettes, uncomplicated
CPT/HCPCS: 99284